=== PATIENT | male | born 1970 | race Two or more races ===

== ENCOUNTER 2021-02-21 06:22 | Emergency (ER) | payer OTHER, SELFPAY ==
--- NOTE | ~2021-02-21 | CT_ITS ---
EXAMINATION: CT ABDOMEN AND PELVIS WITH CONTRAST CLINICAL INFORMATION: Upper abdominal pain after eating. COMPARISON: None TECHNIQUE: Multidetector volumetric images were obtained from the superior aspect of the liver through the pubic symphysis following administration 100 mL of Omnipaque 350 intravenous contrast. Sagittal and coronal reformatted images were obtained on the technologist's workstation. Oral contrast: No This CT examination was performed using dose optimization techniques as appropriate, variously including the following: *Automated exposure control *Adjustment of mA and/or kV according to patient size (this includes techniques or standardized protocols for targeted exams where dose is matched to indication/reason for exam; i.e. extremities or head) *Use of iterative reconstruction technique DLP: 2028 mGy-cm FINDINGS: LUNG BASES: The lung bases are clear. The heart size is normal. LIVER, GALLBLADDER, AND BILIARY TREE: The liver is normal in size, shape, and attenuation. No focal hepatic lesion or biliary ductal dilatation is present. The gallbladder is unremarkable with no evidence of radiopaque gallstones, gallbladder wall thickening, or obvious pericholecystic inflammatory changes. PANCREAS: Unremarkable. SPLEEN: There is a 1.8 cm lesion along the inferior tip of the spleen, question cyst. The rest of the spleen is homogeneous in density and is normal size. ADRENAL GLANDS: Unremarkable. KIDNEYS AND URETERS: The kidneys are normal in size, shape, and attenuation. No hydronephrosis, hydroureter, or calculi are seen. No perinephric stranding. BLADDER: Unremarkable. GASTROINTESTINAL TRACT: There is scattered stool and gas seen throughout the colon without significant distention. The small bowel loops are normal caliber. The appendix is normal caliber. No inflammatory process is seen in the abdomen. ABDOMINAL WALL: There is a small umbilical hernia containing fat. LYMPH NODES: Normal. VASCULAR: Unremarkable. PELVIC VISCERA: No free air or free fluid is seen. OSSEOUS STRUCTURES: There is no lytic or sclerotic process. CT/CT abdomen pelvis w con IMPRESSION: No acute intra-abdominal process is seen. A small splenic lesion, likely a cyst or hemangioma. Correlation with ultrasound can be performed.
--- NOTE | ~2021-02-21 | US_ITS ---
EXAMINATION: US ABDOMEN LIMITED CLINICAL INFORMATION: Right upper quadrant pain rule out stones. COMPARISON: CT abdomen 02/21/2021 TECHNIQUE: Real-time imaging of the right upper quadrant abdominal viscera. FINDINGS: PANCREAS: The pancreas is obscured by overlying gas LIVER: The liver is normal in size. The liver contour is normal. Parenchymal echogenicity is increased. No focal hepatic lesion. There is no intrahepatic biliary duct dilatation seen. GALLBLADDER: Normal. The gallbladder is physiologically distended without evidence of stones, sludge, polyps, wall thickening or pericholecystic fluid. COMMON BILE DUCT: Common bile duct is not seen. RIGHT KIDNEY: Normal. No hydronephrosis. No renal calculi or focal parenchymal lesions. The kidney measures 10.9 cm in maximum dimension. FREE FLUID: None. US/US abdomen limited IMPRESSION: Mild hepatic steatosis. The pancreas and CBD was not visualized Gallbladder and right kidney is unremarkable.
[2021-02-21 06:44] VITALS: BP 177/96; PULSE 133; RESP 16; TEMP 37.3; O2SAT 95; BMI 61.3
--- NOTE | 2021-02-21 06:47 | ECG_ITS ---
Test Reason : ABDOMINAL PAIN' Blood Pressure : / mmHG Vent. Rate : 114 BPM Atrial Rate : 114 BPM P-R Int : 128 ms QRS Dur : 186 ms QT Int : 370 ms P-R-T Axes : 003 081 -75 degrees QTc Int : 509 ms Poor data quality Sinus tachycardia When compared with ECG of 24-OCT-2018 00:28, Artifact present Referred By: Scott Oconnell Electronically Signed By:Denny Pearce
--- NOTE | 2021-02-21 06:52 | ED_ITS ---
HPI - General Adult General Chief complaint: Abdominal Pain Stated complaint: CONSTIPATION/NAUSEA Time Seen by Provider: 02/21/21 06:37 Source: patient Mode of arrival: ambulatory Limitations: no limitations History of Present Illness HPI narrative: 50-year-old male who presents emergency department for evaluation of abdominal pain that started yesterday. The patient states that he got home from work and ate dinner at around 7:00 p.m.. He states that he ate shrimp, keilbasa the, potatoes and corn. Approximately 1 hour after eating he developed upper abdominal pain. He took an antacid with no relief his di scomfort. He states the pain has been constant. He describes the pain as a bloating sensation. The pain is 8/10 at its worst. He had associated nausea with no vomiting. States he has been constipated over the last 3-4 days and also had small bowel movements. He denied fever, chills, chest pain, shortness of breath, frequency, urgency or dysuria. The patient states he has not had a COVID 19 infection. He completed his 2nd Spreadshirt COVID-19 vaccine approximately 6 days prior. Related Data Previous Rx's Medication Instructions Recorded amlodipine 10 mg tablet 10 mg PO DAILY 90 Days #90 tab 09/18/20 blood sugar diagnostic #100 ea 09/18/20 comp.stocking,thigh,long,x-lrg #2 ea 09/18/20 furosemide 20 mg tablet 20 mg PO DAILY PRN 14 Days #14 tab 09/18/20 glipizide 2.5 mg tablet, extended 2.5 mg PO DAILY 30 Days #30 tab 09/18/20 release 24 hr lancets 28 gauge #100 ea 09/18/20 olmesartan 20 mg tablet 20 mg PO DAILY 90 Days #90 tab 09/18/20 simvastatin 20 mg tablet 20 mg PO BEDTIME 90 Days #90 tab 09/18/20 sitagliptin 25 mg tablet 25 mg PO DAILY 30 Days #30 tab 09/18/20 aspirin 81 mg tablet,delayed 81 mg PO DAILY 90 Days #90 tab 12/31/20 release metformin 1,000 mg tablet 1,000 mg PO BID 90 Days #180 tab 12/31/20 metoprolol tartrate 100 mg tablet 100 mg PO BID 90 Days #180 tab 12/31/20 Allergies Allergy/AdvReac Type Severity Reaction Status Date / Time empagliflozin [Jardiance] AdvReac Unknown penile Verified 12/18/20 09:27 swelling Review of Systems Review of Systems: Yes all other systems are reviewed and are negative [facility] Past Medical History [facility] Narrative: Patient has a history of diabetes mellitus, hyperlipidemia, obesity, obstructive sleep apnea and peripheral edema. He states that he does not smoke cigarettes, he very rarely drinks alcohol, he denies drug use. He is he was his , he is employed. Surgical History History of tonsillectomy Family History Family History Father Medical history unknown Mother Hypertension Diabetes ZANDER (obstructive sleep apnea) Stroke Brother Diabetes Social History Social History Smoking Status: Never smoker Advance Directives: No Advance Directives Information Provided: No Physical Exam Vital Signs: Vital Signs: Last Vital Signs Temp 99.0 F 02/21/21 11:06 Pulse 98 02/21/21 13:45 Resp 16 02/21/21 13:45 BP 196/89 H 02/21/21 13:45 Pulse Ox 98 02/21/21 13:45 Body Mass Index 61.3 Const: General: cooperative Nutritional Appearance: obese morbidly obese Orientation/consciousness: oriented to person and oriented to place Limi tations: no limitations HENMT: Head: Yes normal to inspection, Yes normocephalic and Yes atraumatic Ears: external ears normal General nose exam: Normal external nose present Face and sinus: Yes normal facial exam Mouth: Normal oral and palatal mucosa present Throat: Yes posterior oropharynx normal Eyes: Periorbital: periorbital findings normal Eyelids: Yes eyelids normal Conjunctivae: conjunctivae normal Sclerae: sclerae normal Corneas: corneas normal Pupils: Equal, round and reactive pupils present Direct Ophthalmoscopy: normal light reflex Neck: Neck: Yes full ROM, Yes no lymphadenopathy, Yes no meningeal signs, Yes trachea midline and Yes supple Chest: Chest palpation & inspection: normal inspection of the chest and normal palpation of entire chest wall Resp: Effort & Inspection: normal respiratory effort and able to speak in complete sentences Auscultation: clear to auscultation bilaterally Cardio: Rate: regular rate Rhythm: regular rhythm Heart sounds: S1 normal heart sound present, S2 normal heart sound present and no murmurs GI: Inspection: Yes normal to inspection Palpation (GI): Soft to palpation, Tenderness to palpation present (GI) in the epigastrum ([id number]), in the LLQ ([id number]) and in the RUQ (Moderate), no guarding, not rigid and No hepatosplenomegaly present : General: Yes no CVA tenderness Back/Spine/Pelvis: Back: no CVA tenderness Cervical Spine: normal cervical lordosis Thoracic/Lumbar Spine: thoracic and lumbar spine normal to inspection Skin: Lesions: no lesions Rashes: no rashes Wounds: no wounds Neuro: General: oriented to person, oriented to place and no meningeal signs Cranial nerves: Yes CN's II-XII intact bilaterally and Yes Equal, round and reactive pupils present Cognition (Neuro): normal cognition Motor exam (neuro): 5/5 motor strength present throughout Extrem: General: Yes normal to inspection and Yes full ROM Psych: Appearance: well kempt Mental Status: mental status grossly normal Speech and movement: Normal speech and movement present Affect: normal affect Attitude: cooperative Thought process: Normal thought process present Thought content: Normal thought content present Course Course Course Narrative: 50-year-old male who presents emergency department for evaluation of upper abdominal pain which started yesterday at 8:00 p.m., 1 hour after eating a fatty meal. Patient's pain is been constant and he feels bloated, he has had associated nausea with no vomiting. Physical examination did reveal a morbidly obese male who appeared to be in mild distress secondary to his pain. He did have upper abdominal tenderness with increased tenderness in the right upper quadrant. Differential includes but is not limited to biliary disease, gastritis, pancreatitis. I did order a CBC, CMP, lipase, EKG, CT scan of the abdomen pelvis with IV contrast. He was ordered to get normal saline IV x1 L, his pain and nausea were treated with Zofran 4 mg IV and Toradol 30 mg IV. 0825: Patient's laboratory evaluation revealed an elevated lactic acid of 4.2, elevated glucose of 420, low bicarb of 20, elevated ALT of 47 elevated alk-phos of 154. Patient's WBC count was normal at 8300 but he did have a left shift with 90 neutrophils and no bands. The patient meets sepsis criteria secondary to elevated lactic acid of 4.2. The patient was ordered to get a 30 cc/kilogram bolus of normal saline based on the patient's ideal body weight. This bolus would be 2 L of normal saline. I did order blood cultures on the patient and I ordered the patient to get Zosyn 4.5 mg IV to cover him for possible biliary source for sepsis. 1349: The CT scan of the patient's abdomen pelvis with IV contrast did not reveal any clear etiology for the patient's abdominal pain. A right upper quadrant ultrasound was obtained and there was no gallstones noted or gallbladder wall thickening. The patient did require morphine IV for his pain is well and his pain is significantly improved. Repeat abdominal exam revealed only minimal mid epigastric and right upper quadrant tenderness. At this time I suspect the patient's pain is secondary to gastritis but I did discuss the possibility of gallbladder dysfunction as a cause of his pain. I will treat the patient with an H2 shaylee for gastritis and fiber supplement and laxative to help with his constipation. Medical Decision Making Lab Data Result diagrams: 02/21/21 07:33 02/21/21 07:33 Labs: Lab Results 02/21/21 02/21/21 02/21/21 Range/Units 07:33 07:33 07:33 WBC 8.3 (4.8-10.8) X10*3/uL RBC 4.88 (4.60-5.80) X10*6/uL Hgb 13.7 L (14.0-18.0) g/dl Hct 42.7 (42-52) % MCV 87.5 (80-98) fL MCH 28.1 (27.0-33.0) pg MCHC 32.1 (31.0-36.0) g/dl RDW 13.7 (11.0-16.0) % Plt Count 254 (160-400) X10*3/uL MPV 9.6 (9.4-12.4) fL Immature Gran % (Auto) 1.3 H (0.0-0.4) % Neut % (Auto) 90.5 H (45-73) % Lymph % (Auto) 3.9 L (20-40) % Cherry % (Auto) 3.7 (2-11) % Eos % (Auto) 0.4 (0-4) % Baso % (Auto) 0.2 (0-2) % Lymph # (Auto) 0.3 L (1.2-4.9) X10*3/uL Cherry # (Auto) 0.3 (0.1-1.2) X10*3/uL Eos # (Auto) 0.0 (0.0-0.4) X10*3/uL Baso # (Auto) 0.0 (0.0-0.2) X10*3/uL Abs Immat Gran (auto) 0.11 H (0.00-0.03) X10*3/uL Absolute Neuts (auto) 7.5 (2.0-8.3) X10*3/uL Absolute Nucleated RBC 0.000 (0.0-0.012) X10*3/uL Nucleated RBC % (auto) 0.0 (0.0-0.2) /100WBC Smear Tech's Comments VERIFIED PT (10.8-13.0) SEC INR (0.9-1.1) APTT (24.1-38.0) SEC Sodium 140 (135-145) mmol/L Potassium 4.4 (3.3-5.1) mmol/L Chloride 104 (96-108) mmol/L Carbon Dioxide 20 L (22-29) mmol/L Anion Gap 20 (12-20) BUN 15 (9-16) mg/dL Creatinine 1.01 (0.5-1.4) mg/dL Estim Creat Clear Calc 132.7 Estimated GFR > 60 Random Glucose 420 H* (60-115) mg/dL Lactic Acid 4.2 H* (0.5-2.0) mmol/L Lactic Acid Fup @ 2Hr (0.5-2.0) mmol/L Calcium 8.7 (8.4-10.2) mg/dL Total Bilirubin 0.6 (0.0-1.0) mg/dL AST 30 (5-37) U/L ALT 47 H (0-40) U/L Alkaline Phosphatase 154 H (39-117) U/L Troponin I High Sens (<3.5-35.0) ng/L Total Protein 6.7 (6.5-8.0) g/dL Albumin 4.2 (3.5-5.0) g/dL Lipase 24 (8-78) U/L Urine Color Urine Appearance Urine pH (5.0-8.0) Ur Specific [place] (1.005-1.025) Urine Protein (NEG-TRACE) MG/DL Urine Glucose (UA) (NEG) MG/DL Urine Ketones (NEG) MG/DL Urine Blood (NEG) Urine Nitrite (NEG) Ur Leukocyte Esterase (NEG) Urine RBC (0) /HPF Urine WBC (0-4) /HPF Ur Squamous Epith Cells /LPF Amorphous Sediment /LPF Urine Bacteria /LPF Urine Mucus /LPF COVID-19 ([facility]) (Negative) COVID-19 Clin Com 02/21/21 02/21/21 02/21/21 Range/Units 07:34 07:34 08:07 WBC (4.8-10.8) X10*3/uL RBC (4.60-5.80) X10*6/uL Hgb (14.0-18.0) g/dl Hct (42-52) % MCV (80-98) fL MCH (27.0-33.0) pg MCHC (31.0-36.0) g/dl RDW (11.0-16.0) % Plt Count (160-400) X10*3/uL MPV (9.4-12.4) fL Immature Gran % (Auto) (0.0-0.4) % Neut % (Auto) (45-73) % Lymph % (Auto) (20-40) % Cherry % (Auto) (2-11) % Eos % (Auto) (0-4) % Baso % (Auto) (0-2) % Lymph # (Auto) (1.2-4.9) X10*3/uL Cherry # (Auto) (0.1-1.2) X10*3/uL Eos # (Auto) (0.0-0.4) X10*3/uL Baso # (Auto) (0.0-0.2) X10*3/uL Abs Immat Gran (auto) (0.00-0.03) X10*3/uL Absolute Neuts (auto) (2.0-8.3) X10*3/uL Absolute Nucleated RBC (0.0-0.012) X10*3/uL Nucleated RBC % (auto) (0.0-0.2) /100WBC Smear Tech's Comments PT 11.5 (10.8-13.0) SEC INR 1.0 (0.9-1.1) APTT 35.3 (24.1-38.0) SEC Sodium (135-145) mmol/L Potassium (3.3-5.1) mmol/L Chloride (96-108) mmol/L Carbon Dioxide (22-29) mmol/L Anion Gap (12-20) BUN (9-16) mg/dL Creatinine (0.5-1.4) mg/dL Estim Creat Clear Calc Estimated GFR Random Glucose (60-115) mg/dL Lactic Acid (0.5-2.0) mmol/L Lactic Acid Fup @ 2Hr (0.5-2.0) mmol/L Calcium (8.4-10.2) mg/dL Total Bilirubin (0.0-1.0) mg/dL AST (5-37) U/L ALT (0-40) U/L Alkaline Phosphatase (39-117) U/L Troponin I High Sens < 3.5 (<3.5-35.0) ng/L Total Protein (6.5-8.0) g/dL Albumin (3.5-5.0) g/dL Lipase (8-78) U/L Urine Color DARK YELLOW Urine Appearance CLEAR Urine pH 5.5 (5.0-8.0) Ur Specific [place] >= 1.030 H (1.005-1.025) Urine Protein 1+ H (NEG-TRACE) MG/DL Urine Glucose (UA) 500 H (NEG) MG/DL Urine Ketones 15 (NEG) MG/DL Urine Blood NEG (NEG) Urine Nitrite NEG (NEG) Ur Leukocyte Esterase NEG (NEG) Urine RBC 0 (0) /HPF Urine WBC 0-2 (0-4) /HPF Ur Squamous Epith Cells 2+ /LPF Amorphous Sediment 1+ /LPF Urine Bacteria NONE /LPF Urine Mucus TRACE /LPF COVID-19 ([facility]) (Negative) COVID-19 Clin Com 02/21/21 02/21/21 Range/Units 08:58 11:14 WBC (4.8-10.8) X10*3/uL RBC (4.60-5.80) X10*6/uL Hgb (14.0-18.0) g/dl Hct (42-52) % MCV (80-98) fL MCH (27.0-33.0) pg MCHC (31.0-36.0) g/dl RDW (11.0-16.0) % Plt Count (160-400) X10*3/uL MPV (9.4-12.4) fL Immature Gran % (Auto) (0.0-0.4) % Neut % (Auto) (45-73) % Lymph % (Auto) (20-40) % Cherry % (Auto) (2-11) % Eos % (Auto) (0-4) % Baso % (Auto) (0-2) % Lymph # (Auto) (1.2-4.9) X10*3/uL Cherry # (Auto) (0.1-1.2) X10*3/uL Eos # (Auto) (0.0-0.4) X10*3/uL Baso # (Auto) (0.0-0.2) X10*3/uL Abs Immat Gran (auto) (0.00-0.03) X10*3/uL Absolute Neuts (auto) (2.0-8.3) X10*3/uL Absolute Nucleated RBC (0.0-0.012) X10*3/uL Nucleated RBC % (auto) (0.0-0.2) /100WBC Smear Tech's Comments PT (10.8-13.0) SEC INR (0.9-1.1) APTT (24.1-38.0) SEC Sodium (135-145) mmol/L Potassium (3.3-5.1) mmol/L Chloride (96-108) mmol/L Carbon Dioxide (22-29) mmol/L Anion Gap (12-20) BUN (9-16) mg/dL Creatinine (0.5-1.4) mg/dL Estim Creat Clear Calc Estimated GFR Random Glucose (60-115) mg/dL Lactic Acid (0.5-2.0) mmol/L Lactic Acid Fup @ 2Hr 3.4 H* (0.5-2.0) mmol/L Calcium (8.4-10.2) mg/dL Total Bilirubin (0.0-1.0) mg/dL AST (5-37) U/L ALT (0-40) U/L Alkaline Phosphatase (39-117) U/L Troponin I High Sens (<3.5-35.0) ng/L Total Protein (6.5-8.0) g/dL Albumin (3.5-5.0) g/dL Lipase (8-78) U/L Urine Color Urine Appearance Urine pH (5.0-8.0) Ur Specific [place] (1.005-1.025) Urine Protein (NEG-TRACE) MG/DL Urine Glucose (UA) (NEG) MG/DL Urine Ketones (NEG) MG/DL Urine Blood (NEG) Urine Nitrite (NEG) Ur Leukocyte Esterase (NEG) Urine RBC (0) /HPF Urine WBC (0-4) /HPF Ur Squamous Epith Cells /LPF Amorphous Sediment /LPF Urine Bacteria /LPF Urine Mucus /LPF COVID-19 ([facility]) Negative (Negative) COVID-19 Clin Com See Note Discharge Plan Discharge Clinical Impression: Abdominal pain Patient Disposition: Home, Self-Care Instructions: Abdominal Pain (ED) Additional Instructions: Your blood work did reveal a slight elevation in your white blood cell count elevation in your lactic acid. The CT scan of your abdomen pelvis with IV contrast did not reveal any problems with her gallbladder or any other findings that explains your pain. The ultrasound of your right side of your abdomen did not reveal any gallbladder stones. At this time, I do not have a clear cause for your pain. I suspect that you may have gastritis (inflammation of your stomach). Take cimetidine 800 mg tablets, 1 pill twice a day for 1 month. This will reduce the acid in her stomach and help her stomach heal. I want to treat your constipation as well with a fiber supplement and a laxative. Take Metamucil 1 tsp mixed in 8 oz of water daily for 1 month. Take Senokot 1 pill twice a day for 4 days. This is a laxative and should help you move your bowels. Follow-up with your doctor in 2 days. Please return to the emergency department if your symptoms get worse or if you develop any symptoms that are concerning to you. Prescriptions: No Action metoprolol tartrate 100 mg tablet 100 mg PO BID 90 Days Qty: 180 RF: 1 aspirin 81 mg tablet,delayed release (DR/EC) 81 mg PO DAILY 90 Days Qty: 90 RF: 1 metformin 1,000 mg tablet 1,000 mg PO BID 90 Days Qty: 180 RF: 1 amlodipine 10 mg tablet 10 mg PO DAILY 90 Days Qty: 90 RF: 1 olmesartan 20 mg tablet 20 mg PO DAILY 90 Days Qty: 90 RF: 1 (DME) FreeStyle Test Strip See Rx Instructions .ROUTE .MEDSUPPLY Qty: 100 RF: 0 glipizide 2.5 mg tablet extended release 24hr 2.5 mg PO DAILY 30 Days Qty: 30 RF: 3 Januvia 25 mg tablet 25 mg PO DAILY 30 Days Qty: 30 RF: 3 (DME) lancets [FreeStyle Lancets] 28 gauge misc See Rx Instructions .ROUTE .MEDSUPPLY Qty: 100 RF: 0 furosemide [Lasix] 20 mg tablet 20 mg PO DAILY PRN (Reason: edema) 14 Days Qty: 14 RF: 1 (DME) comp.stocking,thigh,long,x-lrg Misc See Rx Instructions .ROUTE .MEDSUPPLY Qty: 2 RF: 0 simvastatin 20 mg tablet 20 mg PO BEDTIME 90 Days Qty: 90 RF: 1
[2021-02-21 07:41] LABS: Basophils Percent Auto 0.2 % (0-2); Eosinophils Percent Auto 0.4 % (0-4); Hematocrit 42.7 % (42-52); Hemoglobin 13.7 g/dl (14.0-18.0); Imm Gran Abs Auto 0.11 X10*3/uL (0.00-0.03); Imm Gran Pct Auto 1.3 % (0.0-0.4); Lymphocytes Absolute Auto 0.3 X10*3/uL (1.2-4.9); Lymphocytes Percent Auto 3.9 % (20-40); MANUAL DIFF FLAG SCAN; Mean Corpuscular HGB Conc 32.1 g/dl (31.0-36.0); Mean Corpuscular Hemoglobin 28.1 pg (27.0-33.0); Mean Corpuscular Volume 87.5 fL (80-98); Mean Platelet Volume 9.6 fL (9.4-12.4); Monocytes Absolute Auto 0.3 X10*3/uL (0.1-1.2); Monocytes Percent Auto 3.7 % (2-11); Neutrophils Absolute Auto 7.5 X10*3/uL (2.0-8.3); Neutrophils Percent Auto 90.5 % (45-73); Platelet Count 254 X10*3/uL (160-400); Red Blood Count 4.88 X10*6/uL (4.60-5.80); Red Cell Distribution Width 13.7 % (11.0-16.0); SCAN SMEAR FLAG 1; White Blood Count 8.3 X10*3/uL (4.8-10.8)
[2021-02-21 07:44] LABS: Glucose Urine UA 500 MG/DL (NEG); Leukocyte Esterase Urine NEG (NEG); Nitrite Urine NEG (NEG); PH 5.5 (5.0-8.0); Specific Gravity - Urine >= 1.030 (1.005-1.025); Urine Blood NEG (NEG); Urine Ketones 15 MG/DL (NEG); Urine Protein 1+ MG/DL (NEG-TRACE)
[2021-02-21 07:46] LABS: Appearance Urine CLEAR; Color Urine DARK YELLOW
[2021-02-21 07:52] LABS: Amorphous Sediment Urine 1+ /LPF; Mucus Urine TRACE /LPF; RBC Urine 0 /HPF (0); Squamous Epithelial Cell Urine 2+ /LPF; WBC Urine 0-2 /HPF (0-4)
[2021-02-21 07:58] LABS: SLIDE REVIEW VERIFIED
[2021-02-21] MEDS: Ketorolac Tromethamine 30 MG/ML VIAL IVPUSH (07:59)
[2021-02-21] MEDS: 0.9 % Sodium Chloride 1,000 ML 999 ML IV (08:00)
[2021-02-21 08:06] LABS: Lactic Acid 4.2 mmol/L (0.5-2.0)
[2021-02-21 08:15] LABS: Troponin-I High Sensitivity < 3.5 ng/L (<3.5-35.0)
[2021-02-21 08:20] LABS: Alanine Aminotransferase 47 U/L (0-40); Albumin Level 4.2 g/dL (3.5-5.0); Alkaline Phosphatase 154 U/L (39-117); Anion Gap 20 (12-20); Aspartate Amino Transferase 30 U/L (5-37); Bilirubin Total 0.6 mg/dL (0.0-1.0); Blood Urea Nitrogen 15 mg/dL (9-16); Calcium 8.7 mg/dL (8.4-10.2); Carbon Dioxide 20 mmol/L (22-29); Chloride 104 mmol/L (96-108); Creatinine Clr Calc Pharmacy 132.7; Estimated Glomerular Filt Rate > 60; Glucose Random 420 mg/dL (60-115); Lipase 24 U/L (8-78); Potassium 4.4 mmol/L (3.3-5.1); Sodium 140 mmol/L (135-145); Total Protein 6.7 g/dL (6.5-8.0)
[2021-02-21 08:21] LABS: Prothrombin Time 11.5 SEC (10.8-13.0)
[2021-02-21 08:23] LABS: Partial Thromboplastin Time 35.3 SEC (24.1-38.0)
[2021-02-21] MEDS: iohexoL 350 MG/ML 100 ML INFUS..BTL IV (09:15)
[2021-02-21 09:31] LABS: COVID-19 Test Negative (Negative); IDNOW Serial# 9DD0AD1C
[2021-02-21 09:38] LABS: Reflex Lactate? Lactic Acid Added
[2021-02-21] MEDS: Piperacillin Sodium/Tazobactam 4.5 GM in 0.9 % Sodium Chloride 100 ML IV (09:50)
[2021-02-21 11:06] VITALS: BP 190/97; PULSE 95; RESP 16; TEMP 37.2; O2SAT 98
[2021-02-21 11:42] LABS: ~Lactic Acid-LAB USE ONLY 3.4 mmol/L (0.5-2.0)
[2021-02-21] MEDS: ondansetron HCL 4 MG/2 ML VIAL IVPUSH (12:01)
[2021-02-21] MEDS: Morphine Sulfate 4 MG/ML CARTRIDGE IVPUSH (12:01)
[2021-02-21 13:18] LABS: Reflex Lactate? 2 Y
[2021-02-21 13:45] VITALS: BP 196/89; PULSE 98; RESP 16; O2SAT 98
--- NOTE | 2021-02-21 13:48 | PC.NURSE ---
pt hypertensive, did not take his bp rxs this am. asymptomatic.
== END 2021-02-21 14:37 | disposition home or self-care (01) ==
PROVIDERS: Emergency Provider Emergency Medicine Emergency Medical Services; PCP Physician Assistant
DX: R10.11 Right upper quadrant pain (principal); K59.00 Constipation, unspecified; Z79.899 Other long term (current) drug therapy; Z20.822 Contact with and (suspected) exposure to COVID-19
CPT/HCPCS: 36415; 74177; 76705; 80053; 81001; 83605; 83690; 84484; 85025; 85610; 85730; 87040; 87635; 93005; 96361; 96365; 96375; 99284; J1885; J2270; J2405; J2543; Q9967

== ENCOUNTER 2021-09-28 16:48 | Emergency (ER) | payer OTHER, SELFPAY ==
[2021-09-28 17:04] VITALS: BP 203/92; PULSE 82; RESP 18; TEMP 37; O2SAT 98; BMI 58.1
[2021-09-28 20:05] VITALS: BP 191/81; PULSE 94
[2021-09-28 20:07] VITALS: O2SAT 98
--- NOTE | 2021-09-28 20:07 | PC.NURSE ---
pt a&o, denies any increase sob, but has a cough after vaccines and has chest pain from coughing. pt also reports high blood pressure he believe it is due to over the counter medicine.
[2021-09-28 21:47] VITALS: BP 191/87; PULSE 94
[2021-09-28] MEDS: Metoprolol Tartrate 100 MG TABLET PO (21:47)
[2021-09-28 22:50] VITALS: BP 188/92; PULSE 67; RESP 18; TEMP 37.6; O2SAT 96
--- NOTE | 2021-09-29 00:05 | ED.GENADULT ---
HPI - General Adult General Chief complaint: Upper Respiratory Symptoms Stated complaint: high bp Time Seen by Provider: 09/28/21 20:54 Source: patient History of Present Illness HPI narrative: Patient was sent in from urgent care due to hypertension. Patient has had a recent viral upper respiratory infection, COVID-19 negative. He states he has been coughing a lot. He went to the urgent care today. They found his blood pressure was elevated. He had not taken his blood pressure medicine yet. He typically takes metoprolol daily. He has been taking [id number] decongestants and cough medication including a Sudafed in the morning. He denies chest pain. No shortness of breath. He does have a headache when he coughs but otherwise no weakness numbness or paresthesias. He states he typically runs a high blood pressure but does not know the number. Related Data Previous Rx's Medication Instructions Recorded amlodipine 10 mg tablet 10 mg PO DAILY 90 Days #90 tab 09/18/20 blood sugar diagnostic (FreeStyle #100 ea 09/18/20 Test) comp.stocking,thigh,long,x-lrg #2 ea 09/18/20 furosemide 20 mg tablet (Lasix) 20 mg PO DAILY PRN 14 Days #14 tab 09/18/20 glipizide 2.5 mg tablet, extended 2.5 mg PO DAILY 30 Days #30 tab 09/18/20 release 24 hr lancets 28 gauge (FreeStyle #100 ea 09/18/20 Lancets) olmesartan 20 mg tablet 20 mg PO DAILY 90 Days #90 tab 09/18/20 simvastatin 20 mg tablet 20 mg PO BEDTIME 90 Days #90 tab 09/18/20 sitagliptin 25 mg tablet (Januvia) 25 mg PO DAILY 30 Days #30 tab 09/18/20 aspirin 81 mg tablet,delayed 81 mg PO DAILY 90 Days #90 tab 12/31/20 release metformin 1,000 mg tablet 1,000 mg PO BID 90 Days #180 tab 12/31/20 metoprolol tartrate 100 mg tablet 100 mg PO BID 90 Days #180 tab 12/31/20 cimetidine 800 mg tablet 800 mg PO BID 30 Days #60 tab 02/21/21 sennosides 17.2 mg tablet (Senokot 34.4 mg PO BID PRN #30 tab 02/21/21 Extra Strength) amlodipine 10 mg tablet 10 mg PO DAILY #30 tab 09/29/21 Allergies Allergy/AdvReac Type Severity Reaction Status Date / Time empagliflozin [Jardiance] AdvReac Unknown penile Verified 09/28/21 17:04 swelling Review of Systems Constitutional: Constitutional: Denies fever(s) Cardiovascular: Comments: No chest pain Respiratory: Comments: Cough. No phlegm. No dyspnea Gastrointestinal: Comments: No nausea vomiting diarrhea constipation Musculoskeletal: Comments: No extremity pain Neurologic: Comments: Headache without weakness numbness or paresthesias [facility] Past Medical History Surgical History History of tonsillectomy Family History Family History Father Medical history unknown Mother Hypertension Diabetes ZANDER (obstructive sleep apnea) Stroke Brother Diabetes Social History Social History Patient Tobacco Use Status: Never used Tobacco Use of substances other than those prescribed or required for medical reasons: No Advance Directives: No Advance Directives Information Provided: Yes Physical Exam Vital Signs: Vital Signs: Last Vital Signs Temp 99.6 F 09/28/21 22:50 Pulse 67 09/28/21 22:50 Resp 18 09/28/21 22:50 BP 188/92 H 09/28/21 22:50 Pulse Ox 96 09/28/21 22:50 Body Mass Index 58.1 Const: Other: Awake alert no acute distress Resp: Other: Clear and equal bilaterally no wheezes rales or rhonchi Cardio: Other: Regular rate and rhythm without murmurs rubs or gallops GI: Other: Soft nontender nondistended Skin: Other: Warm pink and dry Neuro: Other: Nonfocal. Ambulatory Course Course Course Narrative: Uncontrolled hypertension No evidence of end-organ damage of the clinical exam. Viral URI. Hypertension likely exacerbated by ofsm-loi-fohcrmd medications including Sudafed. He is likely under treated chronically. He states he used to be on amlodipine but it was too expensive. Will restart patient on amlodipine. He will last for the generic. Discharge Plan Discharge Clinical Impression: HTN (hypertension) Qualifiers: Hypertension type: primary hypertension Qualified Code(s): I10 - Essential (primary) hypertension URTI (infection of the upper respiratory tract) Qualifiers: URI type: unspecified viral URI Qualified Code(s): J06.9 - Acute upper respiratory infection, unspecified Patient Disposition: Home, Self-Care Instructions: Upper Respiratory Infection (ED), Chronic Hypertension (ED) Prescriptions: New amlodipine 10 mg tablet 10 mg PO DAILY Qty: 30 RF: 0 No Action metoprolol tartrate 100 mg tablet 100 mg PO BID 90 Days Qty: 180 RF: 1 aspirin 81 mg tablet,delayed release (DR/EC) 81 mg PO DAILY 90 Days Qty: 90 RF: 1 metformin 1,000 mg tablet 1,000 mg PO BID 90 Days Qty: 180 RF: 1 cimetidine 800 mg tablet 800 mg PO BID 30 Days Qty: 60 RF: 0 Senokot Extra Strength 17.2 mg tablet 34.4 mg PO BID PRN (Reason: constipation) Qty: 30 RF: 0 amlodipine 10 mg tablet 10 mg PO DAILY 90 Days Qty: 90 RF: 1 olmesartan 20 mg tablet 20 mg PO DAILY 90 Days Qty: 90 RF: 1 (DME) FreeStyle Test Strip See Rx Instructions .ROUTE .MEDSUPPLY Qty: 100 RF: 0 glipizide 2.5 mg tablet extended release 24hr 2.5 mg PO DAILY 30 Days Qty: 30 RF: 3 Januvia 25 mg tablet 25 mg PO DAILY 30 Days Qty: 30 RF: 3 (DME) lancets [FreeStyle Lancets] 28 gauge misc See Rx Instructions .ROUTE .MEDSUPPLY Qty: 100 RF: 0 furosemide [Lasix] 20 mg tablet 20 mg PO DAILY PRN (Reason: edema) 14 Days Qty: 14 RF: 1 (DME) comp.stocking,thigh,long,x-lrg Misc See Rx Instructions .ROUTE .MEDSUPPLY Qty: 2 RF: 0 simvastatin 20 mg tablet 20 mg PO BEDTIME 90 Days Qty: 90 RF: 1
[2021-09-29 00:08] VITALS: RESP 20
[2021-09-29 00:13] VITALS: BP 189/77; PULSE 71
[2021-09-29] MEDS: amLODIPine Besylate 5 MG TABLET PO (00:13)
== END 2021-09-29 00:20 | disposition home or self-care (01) ==
PROVIDERS: Emergency Provider Emergency Medicine; PCP Internal Medicine
DX: J06.9 Acute upper respiratory infection, unspecified (principal); I10 Essential (primary) hypertension; Z79.899 Other long term (current) drug therapy
CPT/HCPCS: 99283; 99284

== ENCOUNTER 2022-08-01 13:19 | Inpatient (IN) | payer OTHER, SELFPAY ==
--- NOTE | ~2022-08-01 | FL_ITS ---
EXAMINATION: XR FLUOROSCOPY WITH IMAGES CLINICAL INFORMATION: Kidney stone COMPARISON: Previous CT of the abdomen and pelvis 08/01/2022 TECHNIQUE: Fluoroscopy performed by Dr. Darwin Zuñiga. Fluoroscopy time: 86 seconds. Cumulative Dose: 70 mGy. DAP: Gy-cm2. Images: 1. FINDINGS: Single image demonstrates a wire projecting over the right renal collecting system and ureter. FL/FL guidance in OR IMPRESSION: Fluoroscopy guidance for urologic procedure.
--- NOTE | ~2022-08-01 | CT_ITS ---
EXAMINATION: CT ABDOMEN AND PELVIS WITHOUT CONTRAST CLINICAL INFORMATION: Flank pain COMPARISON: Abdominal ultrasound earlier today and CT abdomen pelvis February 21, 2021 TECHNIQUE: Multidetector volumetric imaging was performed from the superior aspect of the liver through the pubic symphysis. Sagittal and coronal reformatted images were obtained on the technologist's workstation. Today's examination is limited secondary to artifact from patient body habitus. This CT examination was performed using dose optimization techniques as appropriate, variously including the following: *Automated exposure control *Adjustment of mA and/or kV according to patient size (this includes techniques or standardized protocols for targeted exams where dose is matched to indication/reason for exam; i.e. extremities or head) *Use of iterative reconstruction technique DLP: 1687 mGy-cm FINDINGS: Visualized lung bases demonstrate mild dependent atelectasis. The liver is normal in size but demonstrates diffusely decreased attenuation. The gallbladder is normal in appearance. The pancreas is normal in appearance. Similar approximately 1 cm hypodense lesion off the inferior spleen, nonspecific. Small medial splenule noted. The adrenal glands are unremarkable. There is mild right-sided hydronephrosis secondary to a 2 mm calculus within the distal right ureter. There is asymmetric perinephric stranding of the right kidney. No other renal calculi identified within the right or left kidney. There is no hydronephrosis of the left kidney. The stomach is decompressed. Normal caliber loops of small and large bowel. Small fat-containing umbilical hernia is unchanged. Normal caliber abdominal aorta. A few shotty retroperitoneal lymph nodes are again demonstrated. The bladder is normal in appearance. The prostate gland is normal in size. There is no gross free pelvic fluid. No inguinal lymphadenopathy. Mild to moderate degenerative changes of the spine. CT/CT abdomen pelvis wo IV con IMPRESSION: -Mild right-sided hydronephrosis secondary to a 2 mm calculus within the distal right ureter. -Diffusely decreased liver attenuation suggesting hepatic steatosis. Correlation with liver enzymes recommended. Fleischner guidelines were followed.
--- NOTE | ~2022-08-01 | US_ITS ---
EXAMINATION: US ABDOMEN LIMITED CLINICAL INFORMATION: Right upper quadrant pain. COMPARISON: Right upper quadrant abdominal ultrasound 02/21/2021, CT abdomen pelvis 02/21/2021 TECHNIQUE: Real-time imaging of the right upper quadrant abdominal viscera. FINDINGS: PANCREAS: Visualized pancreatic body is grossly unremarkable. Majority of the pancreatic body, tail and head are obscured by bowel gas including assessment. LIVER: Diffusely increased hepatic echotexture consistent with steatosis. No gross liver lesion. No intrahepatic biliary ductal dilation. GALLBLADDER: Normal. The gallbladder is physiologically distended without evidence of stones, sludge, polyps, wall thickening or pericholecystic fluid. COMMON BILE DUCT: Not well delineated. What is felt to represent a short segment of the extra hepatic bile duct is measured at 0.5 cm in diameter. RIGHT KIDNEY: Normal. No renal calculi or focal parenchymal lesions. Mild fullness of the right renal pelvis. No caliectasis. The kidney measures 14.9 cm in maximum dimension. Limited imaging of the bladder for evaluation of ureteral jets was performed. Neither ureteral jet was seen but evaluation is significantly limited due to patient body habitus. FREE FLUID: None. US/US abdomen limited IMPRESSION: 1. Diffusely increased hepatic echotexture consistent with steatosis. 2. Normal gallbladder. No sonographic evidence of cholelithiasis or acute cholecystitis. 3. No biliary ductal dilation. 4. Slight fullness of the right renal pelvis versus minimal right hydronephrosis.
[2022-08-01 14:06] VITALS: BP 206/110; PULSE 92; RESP 16; TEMP 37.4; O2SAT 100; BMI 45.1
[2022-08-01 14:35] LABS: MANUAL DIFF FLAG NO
[2022-08-01 14:38] LABS: Basophils Percent Auto 0.4 % (0-2); Eosinophils Absolute Auto 0.1 X10*3/uL (0.0-0.4); Eosinophils Percent Auto 0.5 % (0-4); Hematocrit 42.2 % (42.0-52.0); Hemoglobin 13.8 g/dl (14.0-18.0); Imm Gran Abs Auto 0.08 X10*3/uL (0.00-0.03); Imm Gran Pct Auto 0.8 % (0.0-0.4); Lymphocytes Absolute Auto 1.3 X10*3/uL (1.2-4.9); Lymphocytes Percent Auto 12.5 % (20-40); Mean Corpuscular HGB Conc 32.7 g/dl (31.0-36.0); Mean Corpuscular Volume 85.8 fL (80.0-98.0); Mean Platelet Volume 9.8 fL (9.4-12.4); Monocytes Absolute Auto 0.5 X10*3/uL (0.1-1.2); Monocytes Percent Auto 5.4 % (2-11); Neutrophils Percent Auto 80.4 % (45-73); Platelet Count 262 X10*3/uL (160-400); Red Blood Count 4.92 X10*6/uL (4.60-5.80); Red Cell Distribution Width 13.5 % (11.0-16.0)
[2022-08-01 14:40] LABS: Appearance Urine Clear; Color Urine Yellow; Glucose Urine UA >=1000 mg/dL (Negative); Leukocyte Esterase Urine Negative (Negative); Nitrite Urine Negative (Negative); Specific Gravity - Urine 1.015 (1.005-1.025); UMIC TRIGGER UACC YES; Urine Blood Large (3+) (Negative); Urine Ketones 15 mg/dL (Negative); Urine Protein 30 (1+) mg/dL (Neg-Trace)
[2022-08-01] MEDS: Ondansetron ODT 4 MG TAB.RAPDIS TRANSLINGU (14:40)
--- NOTE | 2022-08-01 14:41 | PC.NURSE ---
PT KNOCKED ON TRIAGE DOOR C/O NAUSEA, ZOFRAN GIVEN, PT REQUESTING PAIN MED
[2022-08-01 14:42] LABS: Bacteria Urine None Seen (None Seen); Hyaline Casts Urine 0-2 /LPF (0-2); RBC Urine >20 /HPF (0-2); Squamous Epithelial Cell Urine 0-2 /HPF (0-2); WBC Urine 0-5 /HPF (0-5)
[2022-08-01] MEDS: Acetaminophen 325 MG TABLET 650 MG PO (14:48)
[2022-08-01 15:26] LABS: Alanine Aminotransferase 24 U/L (0-40); Albumin Level 4.6 g/dL (3.5-5.0); Alkaline Phosphatase 157 U/L (39-117); Anion Gap 22 (12-20); Aspartate Amino Transferase 23 U/L (5-37); Bilirubin Direct 0.4 mg/dL (0.0-0.5); Bilirubin Total 1.1 mg/dL (0.0-1.0); Blood Urea Nitrogen 16 mg/dL (9-16); Calcium 9.1 mg/dL (8.4-10.2); Carbon Dioxide 19 mmol/L (22-29); Chloride 102 mmol/L (96-108); Creatinine Clr Calc Pharmacy 77.2; Estimated Glomerular Filt Rate 53; Glucose Random 383 mg/dL (60-115); Lipase 22 U/L (8-78); Potassium 4.4 mmol/L (3.3-5.1); Sodium 139 mmol/L (135-145); Total Protein 7.4 g/dL (6.5-8.0)
[2022-08-01 16:35] VITALS: BP 174/93; PULSE 102; RESP 20; TEMP 37.3; O2SAT 100
--- NOTE | 2022-08-01 17:21 | PC.NURSE ---
Pt V/S are elevated. RN tried to complete an IV insertion but was not able.
[2022-08-01] MEDS: Ketorolac Tromethamine 30 MG/ML VIAL 15 MG IVPUSH ×2 (17:56→22:02)
[2022-08-01 18:00] VITALS: BP 176/80; PULSE 101; RESP 16; O2SAT 97
[2022-08-01] MEDS: 0.9 % Sodium Chloride 2,000 ML 999 ML IV (18:20)
[2022-08-01] MEDS: ondansetron HCL 4 MG/2 ML VIAL IVPUSH (18:23)
--- NOTE | 2022-08-01 18:28 | PC.NURSE ---
patient a&ox3, family at bedside, due to poor iv access provider attempted us guided which was obtained, ivf started per order, pt medicated per order, manager risk intact-sinus tact, will continue to monitor
[2022-08-01] MEDS: fentaNYL citrate/PF 100 MCG/2 ML VIAL 25 MCG IVPUSH (18:51)
--- NOTE | 2022-08-01 19:09 | ED.ABDPAIN ---
HPI - Abdominal Pain General Chief Complaint: Abdominal Pain Stated Complaint: Lower back pain R side Time Seen by Provider: 08/01/22 14:43 Source: patient and family Mode of arrival: ambulatory History of Present Illness HPI narrative: 52-year-old male with history of hypertension, diabetes and ZANDER who presents for right flank pain that began last night associated with some nausea but no vomiting and is having chills with difficulty urinating. Patient states that it worsened today with radiation into the groin area. Otherwise, denies any fevers, chest pain, shortness of breath. Related Data Previous Rx's Medication Instructions Recorded blood sugar diagnostic (FreeStyle #100 ea 09/18/20 Test strips) comp.stocking,thigh,long,x-lrg #2 ea 09/18/20 lancets 28 gauge (FreeStyle #100 ea 09/18/20 Lancets) amlodipine 10 mg tablet 10 mg PO DAILY 90 days #90 tabs 02/13/22 metformin 1,000 mg tablet 1,000 mg PO BID 90 days #180 tabs 04/21/22 metoprolol tartrate 100 mg tablet 100 mg PO BID 90 days #180 tabs 05/25/22 aspirin 81 mg tablet,delayed 81 mg PO DAILY 90 days #90 tabs 07/16/22 release simvastatin 20 mg tablet 20 mg PO BEDTIME 90 days #90 tabs 07/28/22 Allergies Allergy/AdvReac Type Severity Reaction Status Date / Time empagliflozin [Jardiance] AdvReac Unknown penile Verified 01/21/22 16:15 swelling Review of Systems Review of Systems Pertinent positives and negatives as stated in HPI 10 point review of systems is otherwise negative. [facility] Past Medical History Source: nursing notes reviewed Surgical History History of tonsillectomy Family History Family History Father Medical history unknown Mother Hypertension Diabetes ZANDER (obstructive sleep apnea) Stroke Brother Diabetes Social History Social History Housing: House Patient Tobacco Use Status: Never used Tobacco Use of substances other than those prescribed or required for medical reasons: No Advance Directives: No Advance Directives Information Provided: Yes Current occupational status: employed Physical Exam ED Vital Signs: Vital Signs - 24 hr 08/01/22 14:06 08/01/22 16:35 08/01/22 18:00 Temperature 99.4 F 99.2 F Pulse Rate 92 102 H 101 H Respiratory Rate 16 20 16 Blood Pressure 206/110 H 174/93 H 176/80 H Pulse Oximetry 100 100 97 Oxygen Delivery Method Room Air Room Air Room Air 08/01/22 21:23 08/01/22 22:33 08/02/22 01:32 Temperature 99.3 F 99.5 F Pulse Rate 109 H 111 H 97 Respiratory Rate 20 20 20 Blood Pressure 144/77 H 171/76 H 145/79 H Pulse Oximetry 98 98 96 Oxygen Delivery Method Room Air Room Air Room Air BMI result Body Mass Index 45.1 VITAL SIGNS: Reviewed. GENERAL: Well developed, well nourished, in moderate to severe distress. HEAD: Normocephalic/atraumatic EYES: PERRLA, EOMI intact without pain, no nystagmus/pallor/icterus noted EARS: Ext canals without abnormality OROPHARYNX: no oral lesions noted, posterior pharynx clear LUNGS: Normal breath sounds. No adventitious sounds or accessory muscle use. SpO2<100> CARDIOVASCULAR: Regular rate and rhythm without noted murmurs ABDOMEN: Soft, non-tender, non-distended with bowel sounds, no CVA tenderness SKIN: Inspection of the skin reveals no rashes NEUROLOGIC: Alert and oriented x 4. Strength and sensation to light touch were grossly intact x 4. Course Course Course Narrative: 52-year-old male with history and clinical presentation most consistent with renal colic but will rule out appendicitis, cholecystitis and less likely felt to be SBO or UTI. Review of all investigations c/w ANA, dehydration, ureterolithiasis, hydronephrosis. Patient received IVF, pain medications, insulin and is still having pain. Will repeat chemistries and discussed case with hospitalist who accepts admission and d/w Dr Zuñiga who will se patient in AM. MDM - Abdominal Pain Lab Data Result diagrams: 08/01/22 14:29 08/01/22 22:40 Labs: Lab Results 08/01/22 08/01/22 08/01/22 Range/Units 14:29 14:29 14:29 WBC 10.0 (4.8-10.8) X10*3/uL RBC 4.92 (4.60-5.80) X10*6/uL Hgb 13.8 L (14.0-18.0) g/dl Hct 42.2 (42.0-52.0) % MCV 85.8 (80.0-98.0) fL MCH 28.0 (27.0-33.0) pg MCHC 32.7 (31.0-36.0) g/dl RDW 13.5 (11.0-16.0) % Plt Count 262 (160-400) X10*3/uL MPV 9.8 (9.4-12.4) fL Immature Gran % (Auto) 0.8 H (0.0-0.4) % Neut % (Auto) 80.4 H (45-73) % Lymph % (Auto) 12.5 L (20-40) % [place] % (Auto) 5.4 (2-11) % Eos % (Auto) 0.5 (0-4) % Baso % (Auto) 0.4 (0-2) % Lymph # (Auto) 1.3 (1.2-4.9) X10*3/uL [place] # (Auto) 0.5 (0.1-1.2) X10*3/uL Eos # (Auto) 0.1 (0.0-0.4) X10*3/uL Baso # (Auto) 0.0 (0.0-0.2) X10*3/uL Abs Immat Gran (auto) 0.08 H (0.00-0.03) X10*3/uL Absolute Neuts (auto) 8.0 (2.0-8.3) x10*3/uL Absolute Nucleated RBC 0.000 (0.0-0.012) X10*3/uL Nucleated RBC % (auto) 0.0 (0.0-0.2) /100WBC Sodium 139 (135-145) mmol/L Potassium 4.4 (3.3-5.1) mmol/L Chloride 102 (96-108) mmol/L Carbon Dioxide 19 L (22-29) mmol/L Anion Gap 22 H (12-20) BUN 16 (9-16) mg/dL Creatinine 1.41 H (0.5-1.4) mg/dL Estim Creat Clear Calc 77.2 Estimated GFR 53 POC Glucose (60-115) mg/dL Random Glucose 383 H* (60-115) mg/dL Calcium 9.1 (8.4-10.2) mg/dL Total Bilirubin 1.1 H (0.0-1.0) mg/dL Direct Bilirubin 0.4 (0.0-0.5) mg/dL AST 23 (5-37) U/L ALT 24 (0-40) U/L Alkaline Phosphatase 157 H (39-117) U/L Total Protein 7.4 (6.5-8.0) g/dL Albumin 4.6 (3.5-5.0) g/dL Lipase 22 (8-78) U/L Urine Color Yellow Urine Appearance Clear Urine pH 6.0 (5.0-9.0) Ur Specific [place] 1.015 (1.005-1.025) Urine Protein 30 (1+) H (Neg-Trace) mg/dL Urine Glucose (UA) >=1000 H (Negative) mg/dL Urine Ketones 15 (Negative) mg/dL Urine Blood Large (3+) H (Negative) Urine Nitrite Negative (Negative) Ur Leukocyte Esterase Negative (Negative) Urine RBC >20 H (0-2) /HPF Urine WBC 0-5 (0-5) /HPF Ur Squamous Epith Cells 0-2 (0-2) /HPF Urine Bacteria None Seen (None Seen) Hyaline Casts 0-2 (0-2) /LPF 08/01/22 08/01/22 Range/Units 22:34 22:40 WBC (4.8-10.8) X10*3/uL RBC (4.60-5.80) X10*6/uL Hgb (14.0-18.0) g/dl Hct (42.0-52.0) % MCV (80.0-98.0) fL MCH (27.0-33.0) pg MCHC (31.0-36.0) g/dl RDW (11.0-16.0) % Plt Count (160-400) X10*3/uL MPV (9.4-12.4) fL Immature Gran % (Auto) (0.0-0.4) % Neut % (Auto) (45-73) % Lymph % (Auto) (20-40) % [place] % (Auto) (2-11) % Eos % (Auto) (0-4) % Baso % (Auto) (0-2) % Lymph # (Auto) (1.2-4.9) X10*3/uL [place] # (Auto) (0.1-1.2) X10*3/uL Eos # (Auto) (0.0-0.4) X10*3/uL Baso # (Auto) (0.0-0.2) X10*3/uL Abs Immat Gran (auto) (0.00-0.03) X10*3/uL Absolute Neuts (auto) (2.0-8.3) x10*3/uL Absolute Nucleated RBC (0.0-0.012) X10*3/uL Nucleated RBC % (auto) (0.0-0.2) /100WBC Sodium 139 (135-145) mmol/L Potassium 4.7 (3.3-5.1) mmol/L Chloride 103 (96-108) mmol/L Carbon Dioxide 20 L (22-29) mmol/L Anion Gap 21 H (12-20) BUN 15 (9-16) mg/dL Creatinine 1.45 H (0.5-1.4) mg/dL Estim Creat Clear Calc 75.0 Estimated GFR 51 POC Glucose 295 H (60-115) mg/dL Random Glucose 332 H (60-115) mg/dL Calcium 8.3 L D (8.4-10.2) mg/dL Total Bilirubin 0.7 (0.0-1.0) mg/dL Direct Bilirubin (0.0-0.5) mg/dL AST 22 (5-37) U/L ALT 22 (0-40) U/L Alkaline Phosphatase 141 H (39-117) U/L Total Protein 6.8 (6.5-8.0) g/dL Albumin 4.2 (3.5-5.0) g/dL Lipase (8-78) U/L Urine Color Urine Appearance Urine pH (5.0-9.0) Ur Specific [place] (1.005-1.025) Urine Protein (Neg-Trace) mg/dL Urine Glucose (UA) (Negative) mg/dL Urine Ketones (Negative) mg/dL Urine Blood (Negative) Urine Nitrite (Negative) Ur Leukocyte Esterase (Negative) Urine RBC (0-2) /HPF Urine WBC (0-5) /HPF Ur Squamous Epith Cells (0-2) /HPF Urine Bacteria (None Seen) Hyaline Casts (0-2) /LPF Discharge Plan Discharge Clinical Impression: ANA (acute kidney injury), HTN (hypertension), Obese, DMII (diabetes mellitus, type 2), ZANDER (obstructive sleep apnea), Ureterolithiasis, Hydronephrosis Patient Disposition: Admitted As Inpatient Prescriptions: No Action amlodipine 10 mg tablet 10 mg PO DAILY 90 Days Qty: 90 1RF metformin 1,000 mg tablet 1,000 mg PO BID 90 Days Qty: 180 1RF metoprolol tartrate 100 mg tablet 100 mg PO BID 90 Days Qty: 180 0RF aspirin 81 mg tablet,delayed release (DR/EC) 81 mg PO DAILY 90 Days Qty: 90 1RF simvastatin 20 mg tablet 20 mg PO BEDTIME 90 Days Qty: 90 1RF (DME) FreeStyle Test Strip See Rx Instructions .ROUTE .MEDSUPPLY Qty: 100 0RF Rx Instructions: As directed (DME) lancets [FreeStyle Lancets] 28 gauge misc See Rx Instructions .ROUTE .MEDSUPPLY Qty: 100 0RF Rx Instructions: As directed (DME) comp.stocking,thigh,long,x-lrg Misc See Rx Instructions .ROUTE .MEDSUPPLY Qty: 2 0RF Rx Instructions: As directed
[2022-08-01 21:23] VITALS: BP 144/77; PULSE 109; RESP 20; TEMP 37.4; O2SAT 98
--- NOTE | 2022-08-01 21:45 | PC.NURSE ---
iv access was lost, new access obtained by the charge nurse
--- NOTE | 2022-08-01 21:46 | PC.NURSE ---
patients ivf restarted per order
--- NOTE | 2022-08-01 22:02 | PC.NURSE ---
Pt continues with flank pain 06/17. Pt telemetry shows NSR, and meds were administered as order.
[2022-08-01 22:33] VITALS: BP 171/76; PULSE 111; RESP 20; TEMP 37.5; O2SAT 98
[2022-08-01 22:38] LABS: Glucose, Whole Blood 295 mg/dL (60-115)
--- NOTE | 2022-08-01 22:44 | PC.NURSE ---
Pt POC is 295, it has decreased from when is came in. RN has spoken to Dr. Claire abt his care plan. The plan is for pt to finish IVF, give more pain meds and repeat chemistry labs. will continue to monitor.
[2022-08-01] MEDS: oxyCODONE HCl Immed Release 5 MG TABLET PO (22:58)
--- NOTE | 2022-08-01 22:59 | PC.NURSE ---
patient medicated per order
--- NOTE | 2022-08-01 23:00 | PC.NURSE ---
ivf continue to run slowly
[2022-08-01 23:07] LABS: Alanine Aminotransferase 22 U/L (0-40); Albumin Level 4.2 g/dL (3.5-5.0); Alkaline Phosphatase 141 U/L (39-117); Anion Gap 21 (12-20); Aspartate Amino Transferase 22 U/L (5-37); Bilirubin Total 0.7 mg/dL (0.0-1.0); Blood Urea Nitrogen 15 mg/dL (9-16); Calcium 8.3 mg/dL (8.4-10.2); Carbon Dioxide 20 mmol/L (22-29); Chloride 103 mmol/L (96-108); Estimated Glomerular Filt Rate 51; Glucose Random 332 mg/dL (60-115); Potassium 4.7 mmol/L (3.3-5.1); Sodium 139 mmol/L (135-145); Total Protein 6.8 g/dL (6.5-8.0)
[2022-08-02] MEDS: Insulin Lispro 100 UNIT/ML 3 ML VIAL SUBCUT ×2 (01:21→21:24)
[2022-08-02 01:32] VITALS: BP 145/79; PULSE 97; RESP 20; O2SAT 96
--- NOTE | 2022-08-02 01:33 | P.HPHOSP_ITS ---
History of Present Illness Date of Service: 08/02/22 Chief Complaint: flank pain 58-year-old male with past medical history of morbid obesity, ZANDER, HLD, diabetes, HTN presents to the hospital with complaints of right flank pain. Patient reports that the symptoms started yesterday, the pain is localized to the right flank radiating down the groin. He denies having any urinary symptoms with no dysuria frequency urgency. The pain is 10/10, constant, no relieving or exacerbating factors. Sharp stabbing pain. Patient denies any fever, no chills, denies any chest pain, no shortness of breath no abdominal pain nausea or vomiting, no diarrhea constipation, no urinary symptoms and no lower extremity edema. Denies any history of kidney stones on arrival to the ED patient hemodynamically stable no significant abnormal vitals Labs are significant for WBC count of 9.1, hemoglobin of 12.8, hematocrit of 39, UA positive for blood, creatinine of 1.41 with a baseline of around 1, BUN normal. abdomen pelvic CT shows mild right-sided hydronephrosis secondary to 2 mm calculus within the distal right ureter, diffusely decreased liver attenuation suggesting hepatic steatosis patient started on IV fluids and analgesics and will be admitted for further management Review of Systems Review of Systems: Yes all other systems are reviewed and are negative [facility] Medical History (Updated 08/02/22 @ 06:51 by Frida Mclaughlin MD) Colon cancer screening DMII (diabetes mellitus, type 2) HLD (hyperlipidemia) HTN (hypertension) Lower extremity edema Obese ZANDER (obstructive sleep apnea) Family History Father Medical history unknown Mother Hypertension Diabetes ZANDER (obstructive sleep apnea) Stroke Brother Diabetes Surgical History (Updated 08/02/22 @ 06:47 by Frida Mclaughlin MD) History of tonsillectomy No pertinent past surgical history Social History Housing: House Patient Tobacco Use Status: Never used Tobacco Use of substances other than those prescribed or required for medical reasons: No Advance Directives: No Advance Directives Information Provided: Yes Current occupational status: employed Meds Allergies Allergy/AdvReac Type Severity Reaction Status Date / Time empagliflozin [Jardiance] AdvReac Unknown penile Verified 03/16/22 16:15 swelling Active Medications: Current Medications Acetaminophen (Acetaminophen 325 Mg Tablet) 650 mg PO Q6H PRN PRN Reason: Pain, Mild (Pain Scale 1-3) Docusate Sodium (Docusate Sodium 100 Mg Capsule) 100 mg PO DAILY PRN PRN Reason: Constipation Enoxaparin Sodium (Enoxaparin Sodium 40 Mg/0.4 Ml Syringe) 40 mg SUBCUT Q24H PRANAY Lactated Ringer's (Lr) 1,000 mls @ 100 mls/hr IVCONT .Q10H PRANAY Morphine Sulfate (Morphine Sulfate 4 Mg/Ml Cartridge) 4 mg IVPUSH Q4H PRN; Protocol PRN Reason: Pain, Severe (Pain Scale 7-10) Ondansetron HCl (Ondansetron Hcl 4 Mg/2 Ml Vial) 4 mg IVPUSH Q8H PRN PRN Reason: Nausea and Vomiting Sodium Chloride (0.9 % Sodium Chloride Flush 3 Ml Syringe) 3 ml IVFLUSH QSHIFT PRANAY Physical Exam Vital Signs and Narrative: Vital Signs: Last Vital Signs Temp 99.5 F 08/01/22 22:33 Pulse 97 08/02/22 01:32 Resp 20 08/02/22 01:32 BP 145/79 H 08/02/22 01:32 Pulse Ox 96 08/02/22 01:32 O2 Del Method 08/02/22 01:32 BMI result Body Mass Index 45.1 Const: Other: obese patient General: cooperative and no acute distress Orientation/consciousness: patient oriented x3 Eyes: General: appearance normal, both eyes and all related structures Pupils: Equal, round and reactive pupils present Resp: Effort & Inspection: normal respiratory effort Auscultation: clear to auscultation bilaterally Cardio: Rate: regular rate Rhythm: regular rhythm GI: Palpation (GI): Soft to palpation Auscultation: normal bowel sounds : Other: right CVA tenderness Skin: General skin exam: no rashes or lesions noted Neuro: General: patient oriented x3 Cranial nerves: Yes Equal, round and reactive pupils present Cognition (Neuro): normal cognition Extrem: General: Yes normal to inspection and Yes no pedal edema Results Labs CBC and Chem 7: 08/02/22 04:17 08/02/22 04:17 Labs: Laboratory Results - last 24 hr 09/24/22 09/24/22 09/24/22 14:29 14:29 14:29 MCV 85.8 MCH 28.0 MCHC 32.7 RDW 13.5 Plt Count 262 MPV 9.8 Immature Gran % (Auto) 0.8 H Neut % (Auto) 80.4 H Lymph % (Auto) 12.5 L [place] % (Auto) 5.4 Eos % (Auto) 0.5 Baso % (Auto) 0.4 Lymph # (Auto) 1.3 [place] # (Auto) 0.5 Eos # (Auto) 0.1 Baso # (Auto) 0.0 Abs Immat Gran (auto) 0.08 H Absolute Neuts (auto) 8.0 Absolute Nucleated RBC 0.000 Nucleated RBC % (auto) 0.0 Anion Gap 22 H Estim Creat Clear Calc 77.2 Estimated GFR 53 POC Glucose Random Glucose 383 H* Calcium 9.1 Total Bilirubin 1.1 H Direct Bilirubin 0.4 AST 23 ALT 24 Alkaline Phosphatase 157 H Total Protein 7.4 Albumin 4.6 Lipase 22 Urine Color Yellow Urine Appearance Clear Urine pH 6.0 Ur Specific [place] 1.015 Urine Protein 30 (1+) H Urine Glucose (UA) >=1000 H Urine Ketones 15 Urine Blood Large (3+) H Urine Nitrite Negative Ur Leukocyte Esterase Negative Urine RBC >20 H Urine WBC 0-5 Ur Squamous Epith Cells 0-2 Urine Bacteria None Seen Hyaline Casts 0-2 08/01/22 08/01/22 22:34 22:40 MCV MCH MCHC RDW Plt Count MPV Immature Gran % (Auto) Neut % (Auto) Lymph % (Auto) [place] % (Auto) Eos % (Auto) Baso % (Auto) Lymph # (Auto) [place] # (Auto) Eos # (Auto) Baso # (Auto) Abs Immat Gran (auto) Absolute Neuts (auto) Absolute Nucleated RBC Nucleated RBC % (auto) Anion Gap 21 H Estim Creat Clear Calc 75.0 Estimated GFR 51 POC Glucose 295 H Random Glucose 332 H Calcium 8.3 L D Total Bilirubin 0.7 Direct Bilirubin AST 22 ALT 22 Alkaline Phosphatase 141 H Total Protein 6.8 Albumin 4.2 Lipase Urine Color Urine Appearance Urine pH Ur Specific [place] Urine Protein Urine Glucose (UA) Urine Ketones Urine Blood Urine Nitrite Ur Leukocyte Esterase Urine RBC Urine WBC Ur Squamous Epith Cells Urine Bacteria Hyaline Casts Imaging Radiologist's Impressions: Impressions Abdomen Ultrasound 08/01/22 15:23 IMPRESSION: 1. Diffusely increased hepatic echotexture consistent with steatosis. 2. Normal gallbladder. No sonographic evidence of cholelithiasis or acute cholecystitis. 3. No biliary ductal dilation. 4. Slight fullness of the right renal pelvis versus minimal right hydronephrosis. Abdomen/Pelvis CT 08/01/22 16:41 IMPRESSION: -Mild right-sided hydronephrosis secondary to a 2 mm calculus within the distal right ureter. -Diffusely decreased liver attenuation suggesting hepatic steatosis. Correlation with liver enzymes recommended. Fleischner guidelines were followed. Assessment and Plan (1) ANA (acute kidney injury): Status: Acute (2) Ureterolithiasis: Status: Acute (3) Hydronephrosis: Qualifiers: Hydronephrosis type: with renal calculous obstruction Qualified Code(s): N13.2 - Hydronephrosis with renal and ureteral calculous obstruction Status: Acute (4) Intractable pain: Status: Acute Plan 52-year-old male with past medical history of HTN, HLD, and diabetes presents to the hospital with complaints of right flank pain found to have hydronephrosis and urolithiasis # urolithiasis - likely to be obstructing the moderate hydronephrosis - IV fluids - urology consulted - IV analgesics # ANA - likely obstructive - BUN normal - IV fluids - urology consult for possible stone removal - BMP # hydronephrosis - acute on likely secondary to urolithiasis - will treat with IV fluids - likely will need stone removal if the stone does not passed spontaneously # intractable pain - secondary to kidney stone - IV analgesics # diabetes - low-dose sliding scale insulin - hold metformin - diabetic diet # HTN - elevated - resume home medications DVT prophylaxis Lovenox Pt will require a minimum 2 night hospital stay for intractable pain, ANA, requiring IV fluids Quality Stroke Does the patient have a stroke diagnosis?: No VTE Prior VTE?: No VTE Risk Level:: Medical - moderate - high VTE Device Contraindication: Treatment Not Indicated VTE Drug Contraindication: N/A - Med Ordered
[2022-08-02] MEDS: Enoxaparin Sodium 40 MG/0.4 ML SYRINGE SUBCUT (02:12)
[2022-08-02] MEDS: Lactated Ringers 1,000 ML 100 ML IVCONT ×2 (02:12→13:58)
[2022-08-02] MEDS: Morphine Sulfate 4 MG/ML CARTRIDGE IVPUSH ×3 (02:12→17:52)
[2022-08-02] MEDS: ondansetron HCL 4 MG/2 ML VIAL IVPUSH (02:12)
[2022-08-02 02:16] LABS: Alanine Aminotransferase 22 U/L (0-40); Albumin Level 4.2 g/dL (3.5-5.0); Alkaline Phosphatase 136 U/L (39-117); Anion Gap 19 (12-20); Aspartate Amino Transferase 19 U/L (5-37); Bilirubin Total 0.9 mg/dL (0.0-1.0); Blood Urea Nitrogen 15 mg/dL (9-16); Calcium 8.5 mg/dL (8.4-10.2); Carbon Dioxide 20 mmol/L (22-29); Chloride 105 mmol/L (96-108); Creatinine Clr Calc Pharmacy 76.1; Estimated Glomerular Filt Rate 52; Glucose Random 275 mg/dL (60-115); Potassium 4.1 mmol/L (3.3-5.1); Sodium 140 mmol/L (135-145); Total Protein 6.6 g/dL (6.5-8.0)
--- NOTE | 2022-08-02 02:24 | PC.NURSE ---
Pt. resting in bed, c/o increasing pain in right lower quadrant. Medicated with morphine and zophran per Jan. Started LR infusion as per JAN. Will continue to monitor.
--- NOTE | 2022-08-02 04:21 | PC.NURSE ---
Pt. resting quietly in bed. Pt. reports relief from pain after PRN medications. Covid swab completed.
[2022-08-02 04:49] LABS: COVID-19 Test Negative (Negative)
[2022-08-02 05:20] LABS: MANUAL DIFF FLAG NO
[2022-08-02 05:25] LABS: Basophils Percent Auto 0.3 % (0-2); Eosinophils Absolute Auto 0.1 X10*3/uL (0.0-0.4); Eosinophils Percent Auto 0.7 % (0-4); Hemoglobin 12.8 g/dl (14.0-18.0); Imm Gran Abs Auto 0.08 X10*3/uL (0.00-0.03); Imm Gran Pct Auto 0.9 % (0.0-0.4); Lymphocytes Absolute Auto 1.5 X10*3/uL (1.2-4.9); Lymphocytes Percent Auto 16.7 % (20-40); Mean Corpuscular HGB Conc 32.8 g/dl (31.0-36.0); Mean Corpuscular Hemoglobin 28.4 pg (27.0-33.0); Mean Corpuscular Volume 86.5 fL (80.0-98.0); Mean Platelet Volume 10.2 fL (9.4-12.4); Monocytes Absolute Auto 0.8 X10*3/uL (0.1-1.2); Monocytes Percent Auto 8.7 % (2-11); Neutrophils Absolute Auto 6.6 x10*3/uL (2.0-8.3); Neutrophils Percent Auto 72.7 % (45-73); Platelet Count 252 X10*3/uL (160-400); Red Blood Count 4.51 X10*6/uL (4.60-5.80); Red Cell Distribution Width 13.5 % (11.0-16.0); White Blood Count 9.1 X10*3/uL (4.8-10.8)
[2022-08-02 05:45] LABS: Anion Gap 19 (12-20); Blood Urea Nitrogen 15 mg/dL (9-16); Calcium 8.3 mg/dL (8.4-10.2); Carbon Dioxide 20 mmol/L (22-29); Chloride 106 mmol/L (96-108); Creatinine Clr Calc Pharmacy 84.4; Estimated Glomerular Filt Rate 58; Glucose Random 244 mg/dL (60-115); Sodium 141 mmol/L (135-145)
[2022-08-02 07:16] LABS: Glucose, Whole Blood 251 mg/dL (60-115)
[2022-08-02 07:44] VITALS: BP 153/74; PULSE 102; RESP 18; O2SAT 96
--- NOTE | 2022-08-02 08:06 | PHA.MEDREC ---
Pharmacy Consult ? Medication Reconciliation Pharmacy has completed the medication reconciliation. Thanks Walter
--- NOTE | 2022-08-02 09:59 | PC.NURSE ---
pt alert and oriented, skin appropriate for ethnicity, reports right sided abd/flank area pain at 7/10 at this time sinus tach on the monitor at 104
[2022-08-02 12:30] VITALS: BP 177/85; PULSE 106; RESP 20; TEMP 37.9
[2022-08-02 12:39] LABS: Glucose, Whole Blood 299 mg/dL (60-115)
--- NOTE | 2022-08-02 13:16 | PM.EVENT ---
Event Note Date of Service: 08/02/22 Event Note: 52-year-old male with past medical history of HTN, HLD, and diabetes presents to the hospital with complaints? of right flank pain found to have hydronephrosis and urolithiasis at present patient is resting in bed complaining of right flank pain requesting for pain medication #? right flank pain due to 2 mm distal right ureteric stone and hydronephrosis UA unremarkable continue IV fluids and analgesics await Urology input #? ANA-? likely? obstructive, continue IV fluids follow BMP #? diabetes-? continue low-dose sliding scale insulin,? hold metformin -? diabetic diet #? HTN -? elevated -? resume home medications # hyperlipidemia resume statin ?DVT prophylaxis Lovenox
[2022-08-02 13:59] VITALS: BP 129/60; PULSE 107; RESP 20; TEMP 36.3; O2SAT 95
--- NOTE | 2022-08-02 14:06 | PC.NURSE ---
Pt came in from the ER, received report. Pt has LR running at 100 ml/hr. Pt POC was 299 and insulin was hold d/t Dr. Smith order on 2:00p.m via tiger text with TADEO Curiel. Pt V/s are stable and pt pain has decreased.
[2022-08-02 18:01] VITALS: BP 172/63; PULSE 101; RESP 16; TEMP 37.1; O2SAT 98
[2022-08-02 18:08] LABS: Glucose, Whole Blood 240 mg/dL (60-115)
[2022-08-02 20:00] VITALS: BP 165/64; PULSE 108; RESP 16; TEMP 37.2; O2SAT 96
[2022-08-02 20:49] LABS: Glucose, Whole Blood 265 mg/dL (60-115)
[2022-08-02] MEDS: Atorvastatin Calcium 10 MG TABLET PO (21:25)
[2022-08-02] MEDS: Metoprolol Tartrate 100 MG TABLET PO (21:25)
[2022-08-02] MEDS: 0.9 % Sodium Chloride Flush 3 ML SYRINGE IVFLUSH (23:53)
[2022-08-02] MEDS: Docusate Sodium 100 MG CAPSULE PO (23:54)
[2022-08-03] VITALS (13 sets, daily range): BP systolic 108–153; BP diastolic 57–83; PULSE 70–95; RESP 16–20; TEMP 36.4–37; O2SAT 94–98
[2022-08-03] MEDS: Morphine Sulfate 4 MG/ML CARTRIDGE IVPUSH ×2 (00:01→13:44)
[2022-08-03 00:28] LABS: Glucose, Whole Blood 290 mg/dL (60-115)
[2022-08-03] MEDS: Enoxaparin Sodium 40 MG/0.4 ML SYRINGE SUBCUT (00:43)
[2022-08-03 07:30] LABS: Glucose, Whole Blood 298 mg/dL (60-115)
[2022-08-03] MEDS: Lactated Ringers 1,000 ML 100 ML IVCONT ×2 (08:39→21:49)
--- NOTE | 2022-08-03 10:06 | MHC.CM.PN ---
PATIENT LIVES WITH . COVID (BOOSTER) AND FLU VACCINATED THIS WEEK. NO DME OR VNA SERVICES PCP IS REMBERTO WEBSTER NO HCP ON FILE BUT PATIENT STATES IT IS HIS , HUNTER ([phone]) CASE MANAGEMENT CAN ASSIST WITH COMPLETION
[2022-08-03] MEDS: Insulin Lispro 100 UNIT/ML 3 ML VIAL SUBCUT ×4 (10:08→22:08)
[2022-08-03] MEDS: amLODIPine Besylate 10 MG TABLET PO (10:09)
[2022-08-03] MEDS: Aspirin Enteric Coated 81 MG TABLET.DR PO (10:09)
[2022-08-03] MEDS: Metoprolol Tartrate 100 MG TABLET PO ×2 (10:09→22:09)
[2022-08-03 11:35] LABS: Glucose, Whole Blood 252 mg/dL (60-115)
--- NOTE | 2022-08-03 12:01 | P.PNIM_ITS ---
Subjective Subjective Date of Service: 08/03/22 Interval History: Flank pain improved with IV morphine No fever/chills Review of Systems Review of Systems: Yes all other systems are reviewed and are negative Physical Exam Vital Signs: Vital Signs: Last Vital Signs Temp 97.9 F 08/03/22 09:08 Pulse 83 08/03/22 09:08 Resp 16 08/03/22 09:08 BP 153/83 H 08/03/22 09:08 Pulse Ox 94 08/03/22 09:08 O2 Del Method 08/03/22 09:08 BMI result Body Mass Index 45.1 Gen: in no acute distress HEENT: sclera anicteric, moist mucus membranes Neck: supple Lungs: clear to auscultation bilaterally Heart: regular rate and rhythm, no murmurs Abd: soft, non-tender, non-distended, morbidly obese Ext: no edema Skin: warm/well-perfused Neuro: alert and oriented x3, no focal findings Psych: appropriate affect Objective Data Active Medications Acetaminophen (Acetaminophen 325 Mg Tablet) 650 mg PO Q6H PRN PRN Reason: Pain, Mild (Pain Scale 1-3) Amlodipine Besylate (Amlodipine Besylate 10 Mg Tablet) 10 mg PO DAILY [facility]; Protocol Last Admin: 08/03/22 10:09 Dose: 10 mg Documented By: STEPHON Aspirin (Aspirin Enteric Coated 81 Mg Tablet.Dr) 81 mg PO DAILY [facility] Last Admin: 08/03/22 10:09 Dose: 81 mg Documented By: STEPHON Atorvastatin Calcium (Atorvastatin Calcium 10 Mg Tablet) 10 mg PO BEDTIME [facility] Last Admin: 08/02/22 21:25 Dose: 10 mg Documented By: PRASANTH Dextrose (Dextrose 50 % 25 Gm/50 Ml Syringe) 25 gm IVPUSH Q15M PRN; Protocol PRN Reason: per Hypoglycemia Standing Ord. Docusate Sodium (Docusate Sodium 100 Mg Capsule) 100 mg PO DAILY PRN PRN Reason: Constipation Last Admin: 08/02/22 23:54 Dose: 100 mg Documented By: SUSANA Enoxaparin Sodium (Enoxaparin Sodium 40 Mg/0.4 Ml Syringe) 40 mg SUBCUT Q24H [facility] Last Admin: 08/03/22 00:43 Dose: 40 mg Documented By: SUSANA Glucose (Glucose Gel 15 Gm Gel..Gram.) 15 gm PO Q15M PRN; Protocol PRN Reason: per Hypoglycemia Standing Ord. Lactated Ringer's (Lr) 1,000 mls @ 100 mls/hr IVCONT .Q10H [facility] Last Admin: 08/03/22 08:39 Dose: 100 mls/hr Documented By: STEPHON Insulin Human Lispro (Insulin Lispro 100 Unit/Ml 3 Ml Vial) 0 unit SUBCUT QIDACHS [facility]; Protocol Last Admin: 08/03/22 10:08 Dose: 6 unit Documented By: STEPHON Metoprolol Tartrate (Metoprolol Tartrate 100 Mg Tablet) 100 mg PO BID [facility]; Protocol Last Admin: 08/03/22 10:09 Dose: 100 mg Documented By: STEPHON Morphine Sulfate (Morphine Sulfate 4 Mg/Ml Cartridge) 4 mg IVPUSH Q4H PRN; Protocol PRN Reason: Pain, Severe (Pain Scale 7-10) Last Admin: 08/03/22 00:01 Dose: 4 mg Documented By: SUSANA Ondansetron HCl (Ondansetron Hcl 4 Mg/2 Ml Vial) 4 mg IVPUSH Q8H PRN PRN Reason: Nausea and Vomiting Last Admin: 08/02/22 02:12 Dose: 4 mg Documented By: FRANSICO Pharmacy Consult (Consult Rx Perform Med Rec) 1 each MISCELLANE ONCE PRN PRN Reason: Consult order Sodium Chloride (0.9 % Sodium Chloride Flush 3 Ml Syringe) 3 ml IVFLUSH QSHIFT [facility] Last Admin: 08/03/22 09:13 Dose: Not Given Documented By: STEPHON Non-Admin Reason: IV Running Labs CBC & Chem 7: 08/02/22 04:17 08/02/22 04:17 Labs: Laboratory Results - last 24 hr 08/02/22 08/02/22 08/02/22 12:33 18:04 20:37 POC Glucose 299 H 240 H 265 H 08/03/22 08/03/22 08/03/22 00:13 07:27 11:26 POC Glucose 290 H 298 H 252 H Assessment and Plan (1) Ureterolithiasis: Status: Acute (2) Hydronephrosis: Status: Acute Plan 52-year-old male with past medical history of HTN, HLD, and diabetes presents to the hospital with complaints? of right flank pain found to have hydronephrosis and ureterolithiasis #? ureterolithiasis with hydronephrosis - Urology consulted, to OR Today for operative intervention # obstructive ANA - continue IV fluids, BMP improving, recheck in AM # HTN - continue amlodipine + metoprolol # HLD - continue atorvastatin # DM2 - hold MTF, continue correction-dose lispro # VTE ppx - LMWH In my clinical judgment, the patient requires continued hospitalization for the following reasons: operative intervention Quality Stroke Does the patient have a stroke diagnosis?: No VTE Prior VTE?: No VTE Risk Level:: Medical - moderate - high VTE Device Contraindication: Treatment Not Indicated VTE Drug Contraindication: N/A - Med Ordered
[2022-08-03 16:41] LABS: Glucose, Whole Blood 229 mg/dL (60-115)
--- NOTE | 2022-08-03 18:59 | PC.NURSE ---
call to hospitalist dr. chatterjee regarding patient plan of care following urology procedure. per m.d. patient to remain admitted in hospital. noted elevations in blood sugar md aware trend poc
--- NOTE | 2022-08-03 19:15 | PM.UROCN ---
History of Present Illness Consult details Consult date: 08/03/22 Narrative: Distal right obstructing ureteric stone 2-3 week history of flank pain Two day history of acute right flank pain Came to hospital late Wednesday with acute right distal flank pain 06/17 No relieving factors No prior stone history WBC 9.[address] scan Mild right-sided hydronephrosis secondary to a 2 mm calculus within the distal right ureter Imaging reviewed Based on clinical picture and persistent symptoms recommend intervention with distal ureteroscopy Review of Systems Constitutional: Constitutional: Reports as per HPI and Reports no additional constitutional complaints Cardiovascular: Cardiovascular: Reports as per HPI and Reports no additional cardiovascular complaints Respiratory: Respiratory: Reports as per HPI and Reports no additional respiratory complaints Gastrointestinal: Gastrointestinal: Reports as per HPI and Reports no additional gastrointestinal complaints Genitourinary: Genitourinary: Reports as per HPI Musculoskeletal: Musculoskeletal: Reports no additional musculoskeletal complaints and Reports as per HPI Neurologic: Reports system reviewed and no additional complaints, except as documented and Reports as per HPI PMFSH Past Medical History Medical History (Updated 08/02/22 @ 06:51 by Frida Mclaughlin MD) Colon cancer screening DMII (diabetes mellitus, type 2) HLD (hyperlipidemia) HTN (hypertension) Lower extremity edema Obese ZANDER (obstructive sleep apnea) Family History Family History Father Medical history unknown Mother Hypertension Diabetes ZANDER (obstructive sleep apnea) Stroke Brother Diabetes Surgical History Surgical History (Updated 08/02/22 @ 06:47 by Frida Mclaughlin MD) History of tonsillectomy No pertinent past surgical history Social History Social History Housing: House Patient Tobacco Use Status: Never used Tobacco Use of substances other than those prescribed or required for medical reasons: No Are you DNR?: No Advance Directives: No Advance Directives Information Provided: Yes service: No Current occupational status: employed Meds Allergies Allergy/AdvReac Type Severity Reaction Status Date / Time empagliflozin [Jardiance] AdvReac Unknown penile Verified 01/21/22 16:15 swelling Active Medications: Current Medications Acetaminophen (Acetaminophen 325 Mg Tablet) 650 mg PO Q6H PRN PRN Reason: Pain, Mild (Pain Scale 1-3) Amlodipine Besylate (Amlodipine Besylate 10 Mg Tablet) 10 mg PO DAILY [facility]; Protocol Last Admin: 08/03/22 10:09 Dose: 10 mg Aspirin (Aspirin Enteric Coated 81 Mg Tablet.Dr) 81 mg PO DAILY [facility] Last Admin: 08/03/22 10:09 Dose: 81 mg Atorvastatin Calcium (Atorvastatin Calcium 10 Mg Tablet) 10 mg PO BEDTIME [facility] Last Admin: 08/02/22 21:25 Dose: 10 mg Dextrose (Dextrose 50 % 25 Gm/50 Ml Syringe) 25 gm IVPUSH Q15M PRN; Protocol PRN Reason: per Hypoglycemia Standing Ord. Docusate Sodium (Docusate Sodium 100 Mg Capsule) 100 mg PO DAILY PRN PRN Reason: Constipation Last Admin: 08/02/22 23:54 Dose: 100 mg Enoxaparin Sodium (Enoxaparin Sodium 40 Mg/0.4 Ml Syringe) 40 mg SUBCUT Q24H [facility] Last Admin: 08/03/22 00:43 Dose: 40 mg Glucose (Glucose Gel 15 Gm Gel..Gram.) 15 gm PO Q15M PRN; Protocol PRN Reason: per Hypoglycemia Standing Ord. Lactated Ringer's (Lr) 1,000 mls @ 100 mls/hr IVCONT .Q10H [facility] Last Infusion: 08/03/22 18:32 Dose: Infused Insulin Human Lispro (Insulin Lispro 100 Unit/Ml 3 Ml Vial) 0 unit SUBCUT QIDACHS [facility]; Protocol Last Admin: 08/03/22 18:08 Dose: 4 unit Metoprolol Tartrate (Metoprolol Tartrate 100 Mg Tablet) 100 mg PO BID [facility]; Protocol Last Admin: 08/03/22 10:09 Dose: 100 mg Morphine Sulfate (Morphine Sulfate 4 Mg/Ml Cartridge) 4 mg IVPUSH Q4H PRN; Protocol PRN Reason: Pain, Severe (Pain Scale 7-10) Last Admin: 08/03/22 13:44 Dose: 4 mg Ondansetron HCl (Ondansetron Hcl 4 Mg/2 Ml Vial) 4 mg IVPUSH Q8H PRN PRN Reason: Nausea and Vomiting Last Admin: 08/02/22 02:12 Dose: 4 mg Pharmacy Consult (Consult Rx Perform Med Rec) 1 each MISCELLANE ONCE PRN PRN Reason: Consult order Sodium Chloride (0.9 % Sodium Chloride Flush 3 Ml Syringe) 3 ml IVFLUSH QSHIFT [facility] Last Admin: 08/03/22 16:32 Dose: Not Given Physical Exam Vital Signs: Vital Signs: Last Vital Signs Temp 98.4 F 08/03/22 18:15 Pulse 82 08/03/22 18:15 Resp 20 08/03/22 18:15 BP 140/76 H 08/03/22 18:15 Pulse Ox 95 08/03/22 18:15 O2 Del Method 08/03/22 18:15 BMI result Body Mass Index 45.1 Const: General: cooperative, healthy appearing, comfortable and no acute distress Orientation/consciousness: patient oriented x3 HEENT: Face and sinus: Yes normal facial exam Mouth: moist mucous membranes Neck: Neck: Yes normal visual inspection, Yes full ROM and Yes trachea midline Chest: Chest palpation & inspection: normal inspection of the chest Resp: Effort & Inspection: normal respiratory effort, able to speak in complete sentences and no respiratory distress GI: Inspection: Yes normal to inspection Back/Spine/Pelvis: Cervical Spine: normal cervical lordosis Thoracic/Lumbar Spine: thoracic and lumbar spine normal to inspection Skin: General skin exam: no rashes or lesions noted Neuro: General: patient oriented x3, tone normal and moves all extremities Extrem: General: Yes normal to inspection and Yes capillary refill normal Results Labs Result diagrams: 08/02/22 04:17 08/02/22 04:17 Labs: Abnormal lab results 08/02/22 08/03/22 08/03/22 Range/Units 20:37 00:13 07:27 POC Glucose 265 H 290 H 298 H (60-115) mg/dL 08/03/22 08/03/22 Range/Units 11:26 16:37 POC Glucose 252 H 229 H (60-115) mg/dL Urine 08/01/22 Range/Units 14:29 Urine Color Yellow Urine Appearance Clear Urine pH 6.0 (5.0-9.0) Ur Specific [place] 1.015 (1.005-1.025) Urine Protein 30 (1+) H (Neg-Trace) mg/dL Urine Glucose (UA) >=1000 H (Negative) mg/dL All other labs normal. Assessment and Plan (1) Ureterolithiasis: Status: Acute (2) Hydronephrosis: Qualifiers: Hydronephrosis type: with renal calculous obstruction Qualified Code(s): N13.2 - Hydronephrosis with renal and ureteral calculous obstruction Status: Acute Plan Ureteroscopy We discussed the nature of the decision and reasonable alternatives for performing ureteroscopy. Options such as medical therapy were discussed. Interventions include chemical dissolution, ESWL, ureteroscopy with laser lithotripsy and stent placement, PCNL. The relative uncertainties and benefits related to each alternate procedure were adequately discussed. General surgical risks including, but not limited to - pain, bleeding, infection, myocardial infarction, pulmonary embolus, deep vein thrombosis and cerebrovascular accident which may result in further hospitalization were discussed. Full disclosure of the procedure as well as all major risks, benefits and complications were discussed including but not limited to damage to the urethra, bladder and kidney infection, damage to the ureter, stent migration or malposition, scarring to the renal pelvis, remnant stone fragments, subsequent stone passage with need for secondary procedures. The overall secondary procedure rate is approximately 10-15%. The overall clearance rate is approximately 90-95%. Success of the procedure in the short-term does not necessarily guarantee that long-term success will be maintained. Suitable follow up will need to be maintained. The patient showed understanding of discussion and wishes to proceed with - cystoscopy, retrograde, ureteroscopy, possible lithotripsy/stone basketing and stent on the right side Procedures Date of Service Date of Service: 08/03/22
[2022-08-03 19:19] LABS: Glucose, Whole Blood 227 mg/dL (60-115)
--- NOTE | 2022-08-03 19:45 | HO.ANESPROP2 ---
[facility] Active Problems Active Problems: All Active Problems (Updated 08/02/22 @ 06:51 by Frida Mclaughlin MD) Intractable pain (Acute) Lower extremity edema (Acute) ANA (acute kidney injury) (Acute) Ureterolithiasis (Acute) Hydronephrosis (Acute) Past Medical History Medical History Colon cancer screening DMII (diabetes mellitus, type 2) HLD (hyperlipidemia) HTN (hypertension) Lower extremity edema Obese ZANDER (obstructive sleep apnea) Functional capacity: independent ambulation Family History Family History Father Medical history unknown Mother Hypertension Diabetes ZANDER (obstructive sleep apnea) Stroke Brother Diabetes Family history of problems with anesthesia: No Surgical History Surgical History History of tonsillectomy No pertinent past surgical history History of Problems with Anesthesia: No Social History Social History Housing: House Patient Tobacco Use Status: Never used Tobacco Use of substances other than those prescribed or required for medical reasons: No Are you DNR?: No Advance Directives: No Advance Directives Information Provided: Yes service: No Current occupational status: employed Meds Allergies Allergy/AdvReac Type Severity Reaction Status Date / Time empagliflozin [Jardiance] AdvReac Unknown penile Verified 01/21/22 16:15 swelling Active Medications: Current Medications Acetaminophen (Acetaminophen 325 Mg Tablet) 650 mg PO Q6H PRN PRN Reason: Pain, Mild (Pain Scale 1-3) Amlodipine Besylate (Amlodipine Besylate 10 Mg Tablet) 10 mg PO DAILY PRANAY; Protocol Last Admin: 08/03/22 10:09 Dose: 10 mg Aspirin (Aspirin Enteric Coated 81 Mg Tablet.) 81 mg PO DAILY PRANAY Last Admin: 08/03/22 10:09 Dose: 81 mg Atorvastatin Calcium (Atorvastatin Calcium 10 Mg Tablet) 10 mg PO BEDTIME PRANAY Last Admin: 08/02/22 21:25 Dose: 10 mg Dextrose (Dextrose 50 % 25 Gm/50 Ml Syringe) 25 gm IVPUSH Q15M PRN; Protocol PRN Reason: per Hypoglycemia Standing Ord. Docusate Sodium (Docusate Sodium 100 Mg Capsule) 100 mg PO DAILY PRN PRN Reason: Constipation Last Admin: 08/02/22 23:54 Dose: 100 mg Enoxaparin Sodium (Enoxaparin Sodium 40 Mg/0.4 Ml Syringe) 40 mg SUBCUT Q24H [facility] Last Admin: 08/03/22 00:43 Dose: 40 mg Glucose (Glucose Gel 15 Gm Gel..Gram.) 15 gm PO Q15M PRN; Protocol PRN Reason: per Hypoglycemia Standing Ord. Lactated Ringer's (Lr) 1,000 mls @ 100 mls/hr IVCONT .Q10H [facility] Last Infusion: 08/03/22 18:32 Dose: Infused Levofloxacin (Levaquin) 500 mg in 100 mls @ 100 mls/hr IV PREOP ONE Stop: 08/03/22 20:18 Insulin Human Lispro (Insulin Lispro 100 Unit/Ml 3 Ml Vial) 0 unit SUBCUT QIDACHS [facility]; Protocol Last Admin: 08/03/22 18:08 Dose: 4 unit Metoprolol Tartrate (Metoprolol Tartrate 100 Mg Tablet) 100 mg PO BID [facility]; Protocol Last Admin: 08/03/22 10:09 Dose: 100 mg Morphine Sulfate (Morphine Sulfate 4 Mg/Ml Cartridge) 4 mg IVPUSH Q4H PRN; Protocol PRN Reason: Pain, Severe (Pain Scale 7-10) Last Admin: 08/03/22 13:44 Dose: 4 mg Ondansetron HCl (Ondansetron Hcl 4 Mg/2 Ml Vial) 4 mg IVPUSH Q8H PRN PRN Reason: Nausea and Vomiting Last Admin: 08/02/22 02:12 Dose: 4 mg Pharmacy Consult (Consult Rx Perform Med Rec) 1 each MISCELLANE ONCE PRN PRN Reason: Consult order Sodium Chloride (0.9 % Sodium Chloride Flush 3 Ml Syringe) 3 ml IVFLUSH QSHIFT [facility] Last Admin: 08/03/22 16:32 Dose: Not Given Exam Exam Date and Time: August 03, [id number] Height,Weight and Vital Signs: Height 5 ft 6 in Weight 127.006 kg Last Vital Signs Temp 98.4 F 08/03/22 18:15 Pulse 82 08/03/22 18:15 Resp 20 08/03/22 18:15 BP 140/76 H 08/03/22 18:15 Pulse Ox 95 08/03/22 18:15 O2 Del Method 08/03/22 18:15 Pertinent Lab Results Pertinent Lab Results: Laboratory Tests 08/01/22 08/01/22 08/01/22 14:29 14:29 14:29 WBC 10.0 RBC 4.92 Hgb 13.8 L Hct 42.2 MCV 85.8 MCH 28.0 MCHC 32.7 RDW 13.5 Plt Count 262 MPV 9.8 Immature Gran % (Auto) 0.8 H Neut % (Auto) 80.4 H Lymph % (Auto) 12.5 L [place] % (Auto) 5.4 Eos % (Auto) 0.5 Baso % (Auto) 0.4 Lymph # (Auto) 1.3 [place] # (Auto) 0.5 Eos # (Auto) 0.1 Baso # (Auto) 0.0 Abs Immat Gran (auto) 0.08 H Absolute Neuts (auto) 8.0 Absolute Nucleated RBC 0.000 Nucleated RBC % (auto) 0.0 Sodium 139 Potassium 4.4 Chloride 102 Carbon Dioxide 19 L Anion Gap 22 H BUN 16 Creatinine 1.41 H Estim Creat Clear Calc 77.2 Estimated GFR 53 POC Glucose Random Glucose 383 H* Calcium 9.1 Total Bilirubin 1.1 H Direct Bilirubin 0.4 AST 23 ALT 24 Alkaline Phosphatase 157 H Total Protein 7.4 Albumin 4.6 Lipase 22 Urine Color Yellow Urine Appearance Clear Urine pH 6.0 Ur Specific [place] 1.015 Urine Protein 30 (1+) H Urine Glucose (UA) >=1000 H Urine Ketones 15 Urine Blood Large (3+) H Urine Nitrite Negative Ur Leukocyte Esterase Negative Urine RBC >20 H Urine WBC 0-5 Ur Squamous Epith Cells 0-2 Urine Bacteria None Seen Hyaline Casts 0-2 COVID-19 ([facility]) COVID-19 Clin Com 08/01/22 08/01/22 08/02/22 22:34 22:40 01:49 WBC RBC Hgb Hct MCV MCH MCHC RDW Plt Count MPV Immature Gran % (Auto) Neut % (Auto) Lymph % (Auto) [place] % (Auto) Eos % (Auto) Baso % (Auto) Lymph # (Auto) [place] # (Auto) Eos # (Auto) Baso # (Auto) Abs Immat Gran (auto) Absolute Neuts (auto) Absolute Nucleated RBC Nucleated RBC % (auto) Sodium 139 140 Potassium 4.7 4.1 Chloride 103 105 Carbon Dioxide 20 L 20 L Anion Gap 21 H 19 BUN 15 15 Creatinine 1.45 H 1.43 H Estim Creat Clear Calc 75.0 76.1 Estimated GFR 51 52 POC Glucose 295 H Random Glucose 332 H 275 H Calcium 8.3 L D 8.5 Total Bilirubin 0.7 0.9 Direct Bilirubin AST 22 19 ALT 22 22 Alkaline Phosphatase 141 H 136 H Total Protein 6.8 6.6 Albumin 4.2 4.2 Lipase Urine Color Urine Appearance Urine pH Ur Specific [place] Urine Protein Urine Glucose (UA) Urine Ketones Urine Blood Urine Nitrite Ur Leukocyte Esterase Urine RBC Urine WBC Ur Squamous Epith Cells Urine Bacteria Hyaline Casts COVID-19 ([facility]) [employer] 08/02/22 08/02/22 08/02/22 04:17 04:17 04:18 WBC 9.1 RBC 4.51 L Hgb 12.8 L Hct 39.0 L MCV 86.5 MCH 28.4 MCHC 32.8 RDW 13.5 Plt Count 252 MPV 10.2 Immature Gran % (Auto) 0.9 H Neut % (Auto) 72.7 Lymph % (Auto) 16.7 L [place] % (Auto) 8.7 Eos % (Auto) 0.7 Baso % (Auto) 0.3 Lymph # (Auto) 1.5 [place] # (Auto) 0.8 Eos # (Auto) 0.1 Baso # (Auto) 0.0 Abs Immat Gran (auto) 0.08 H Absolute Neuts (auto) 6.6 Absolute Nucleated RBC 0.000 Nucleated RBC % (auto) 0.0 Sodium 141 Potassium 4.0 Chloride 106 Carbon Dioxide 20 L Anion Gap 19 BUN 15 Creatinine 1.29 Estim Creat Clear Calc 84.4 Estimated GFR 58 POC Glucose Random Glucose 244 H Calcium 8.3 L Total Bilirubin Direct Bilirubin AST ALT Alkaline Phosphatase Total Protein Albumin Lipase Urine Color Urine Appearance Urine pH Ur Specific [place] Urine Protein Urine Glucose (UA) Urine Ketones Urine Blood Urine Nitrite Ur Leukocyte Esterase Urine RBC Urine WBC Ur Squamous Epith Cells Urine Bacteria Hyaline Casts COVID-19 ([facility]) Negative COVID-19 [employer] Com See Note 08/02/22 08/02/22 08/02/22 07:11 12:33 18:04 WBC RBC Hgb Hct MCV MCH MCHC RDW Plt Count MPV Immature Gran % (Auto) Neut % (Auto) Lymph % (Auto) [place] % (Auto) Eos % (Auto) Baso % (Auto) Lymph # (Auto) [place] # (Auto) Eos # (Auto) Baso # (Auto) Abs Immat Gran (auto) Absolute Neuts (auto) Absolute Nucleated RBC Nucleated RBC % (auto) Sodium Potassium Chloride Carbon Dioxide Anion Gap BUN Creatinine Estim Creat Clear Calc Estimated GFR POC Glucose 251 H 299 H 240 H Random Glucose Calcium Total Bilirubin Direct Bilirubin AST ALT Alkaline Phosphatase Total Protein Albumin Lipase Urine Color Urine Appearance Urine pH Ur Specific [place] Urine Protein Urine Glucose (UA) Urine Ketones Urine Blood Urine Nitrite Ur Leukocyte Esterase Urine RBC Urine WBC Ur Squamous Epith Cells Urine Bacteria Hyaline Casts COVID-19 ([facility]) COVID-19 [employer] 08/02/22 08/03/22 08/03/22 20:37 00:13 07:27 WBC RBC Hgb Hct MCV MCH MCHC RDW Plt Count MPV Immature Gran % (Auto) Neut % (Auto) Lymph % (Auto) [place] % (Auto) Eos % (Auto) Baso % (Auto) Lymph # (Auto) [place] # (Auto) Eos # (Auto) Baso # (Auto) Abs Immat Gran (auto) Absolute Neuts (auto) Absolute Nucleated RBC Nucleated RBC % (auto) Sodium Potassium Chloride Carbon Dioxide Anion Gap BUN Creatinine Estim Creat Clear Calc Estimated GFR POC Glucose 265 H 290 H 298 H Random Glucose Calcium Total Bilirubin Direct Bilirubin AST ALT Alkaline Phosphatase Total Protein Albumin Lipase Urine Color Urine Appearance Urine pH Ur Specific [place] Urine Protein Urine Glucose (UA) Urine Ketones Urine Blood Urine Nitrite Ur Leukocyte Esterase Urine RBC Urine WBC Ur Squamous Epith Cells Urine Bacteria Hyaline Casts COVID-19 ([facility]) COVID-19 [employer] 08/03/22 08/03/22 08/03/22 11:26 16:37 19:15 WBC RBC Hgb Hct MCV MCH MCHC RDW Plt Count MPV Immature Gran % (Auto) Neut % (Auto) Lymph % (Auto) [place] % (Auto) Eos % (Auto) Baso % (Auto) Lymph # (Auto) [place] # (Auto) Eos # (Auto) Baso # (Auto) Abs Immat Gran (auto) Absolute Neuts (auto) Absolute Nucleated RBC Nucleated RBC % (auto) Sodium Potassium Chloride Carbon Dioxide Anion Gap BUN Creatinine Estim Creat Clear Calc Estimated GFR POC Glucose 252 H 229 H 227 H Random Glucose Calcium Total Bilirubin Direct Bilirubin AST ALT Alkaline Phosphatase Total Protein Albumin Lipase Urine Color Urine Appearance Urine pH Ur Specific [place] Urine Protein Urine Glucose (UA) Urine Ketones Urine Blood Urine Nitrite Ur Leukocyte Esterase Urine RBC Urine WBC Ur Squamous Epith Cells Urine Bacteria Hyaline Casts COVID-19 ([facility]) COVID-19 Clin Com Airway Heart: RRR Lungs: CTA Assessment and Plan Final Anesthetic Review Family History of Problems with Anesthesia: No History of Problems with Anesthesia: No ASA Class: III and Emergency Final Preanesthetic Review: No Changes in Pt Med Stat, Meds/Allgs Chart Reviewed, Consent Obtained/Reviewed and Anes Risks/Benef Reviewed Patient Risk: Intermediate Procedure Risk: Low Anesthetic Plan Anesthetic Plan: GA Disposition: Standard PACU
--- NOTE | 2022-08-03 20:04 | MHC.SHP ---
Pre-Procedural Eval Section A Date of Service: 08/03/22 The patient is an INPATIENT: Yes Changes since office visit: No Cold of Flu in the past 2 weeks, No New Medical Problems, No Changes in Medication and No Patient answered all questions The History & Physical has been completed within 30 days and I have reviewed it.: Yes Section B Chief Complaint: obstructing stone Details of Present Illness: distal right obstructing stone Allergies: Allergies Allergy/AdvReac Type Severity Reaction Status Date / Time empagliflozin [Jardiance] AdvReac Unknown penile Verified 01/21/22 16:15 swelling Plan Diagnosis/Plan: Unchanged ( right rigid ureteroscopy, laser lithotripsy, stent placement) I have reviewed the history and physical and performed a pertinent physical examination on my patient. No changes have occurred unless specified.
--- NOTE | 2022-08-03 20:49 | W.PM.OPN ---
Operative Note Operative Note Date of Service: 08/03/22 Narrative: PreOperative Diagnosis: distal right ureteric stone Post Operative Diagnosis: distal right ureteric stone Procedure: - cystoscopy, right retrograde - right dilatation of ureteric orifice under fluoroscopy - right ureteroscopy - right stent placement Surgeon: Dr Darwin Zuñiga Anesthesia: General Indications for procedure: distal right ureteric stone with hydronephrosis and persistent pain Procedure: After informed consent was verified patient was brought to the operating placed in supine position. Anesthesia was administered per protocol. Patient was placed in modified dorsal lithotomy position and prepped and draped in a sterile fashion. Safety pause time-out and side of surgery confirmed. Antibiotics confirmed. A 22 [place]ian cystoscope was inserted per urethra. Bladder was normal in its entirety. Both ureteric orifices were in normal position. The right ureteric orifice was cannulated and a retrograde examination was performed. filling defect in distal portion of right ureter with proximal hydronephrosis . A Sensor guidewire was placed up to the level of the renal pelvis under fluoroscopy. The rigid cystoscope was removed. A Hubbard dilator was placed over the Sensor guidewire and used to dilate the ureteric orifice under fluoroscopy. The dilator was removed. the Nellie was difficult to place. The semi rigid ureteral scope was placed alongside the Sensor guidewire. Some mucosa been lifted away from the edge of the ureter. Debris and hydronephrotic fluid was emerging from ureter. It appeared the stone had ordered been broken a small pieces at the time ureteroscopy the rigid ureteral scope was removed. A 22 [place]udian cystoscope was backloaded over the wire. A 6 [place]ian by 24 cm double-J stent was placed into the renal pelvis and bladder under a combination of fluoroscopy and direct visualization. The bladder was emptied. The patient tolerated the procedure well and was extubated in the operating room, and transferred in stable condition to the recovery area. Pathology: Drains: Double-J stent
[2022-08-03 21:49] LABS: Glucose, Whole Blood 248 mg/dL (60-115)
[2022-08-03] MEDS: Acetaminophen 325 MG TABLET 650 MG PO (22:08)
[2022-08-03] MEDS: Phenazopyridine HCL 100 MG TABLET PO (22:08)
[2022-08-03] MEDS: Atorvastatin Calcium 10 MG TABLET PO (22:09)
[2022-08-04] VITALS: BP 138/67; PULSE 77; RESP 17; TEMP 36.7; O2SAT 97
[2022-08-04 03:44] VITALS: BP 133/70; PULSE 53; RESP 17; TEMP 36.4; O2SAT 99
[2022-08-04 06:31] LABS: Anion Gap 18 (12-20); Blood Urea Nitrogen 16 mg/dL (9-16); Calcium 8.1 mg/dL (8.4-10.2); Carbon Dioxide 22 mmol/L (22-29); Chloride 104 mmol/L (96-108); Estimated Glomerular Filt Rate 59; Glucose Random 226 mg/dL (60-115); Potassium 4.2 mmol/L (3.3-5.1); Sodium 140 mmol/L (135-145)
[2022-08-04 07:13] VITALS: BP 126/69; PULSE 72; RESP 18; TEMP 36.3; O2SAT 94
[2022-08-04 07:28] LABS: Glucose, Whole Blood 193 mg/dL (60-115)
[2022-08-04] MEDS: Insulin Lispro 100 UNIT/ML 3 ML VIAL SUBCUT ×3 (08:02→16:33)
[2022-08-04] MEDS: Metoprolol Tartrate 100 MG TABLET PO (08:02)
[2022-08-04] MEDS: Aspirin Enteric Coated 81 MG TABLET.DR PO (08:02)
[2022-08-04] MEDS: amLODIPine Besylate 10 MG TABLET PO (08:02)
[2022-08-04] MEDS: 0.9 % Sodium Chloride Flush 3 ML SYRINGE IVFLUSH ×2 (08:04→16:33)
--- NOTE | 2022-08-04 09:07 | HO.POSTANES ---
Post Anesthesia Evaluation Post Anesthesia Evaluation Vital Signs: Vital Signs Temp Pulse Resp BP Pulse Ox O2 Del Method O2 Flow Rate 08/04/22 07:13 97.4 F 72 18 126/69 94 Nasal Cannula 2 08/04/22 03:44 97.6 F 53 17 133/70 99 Nasal Cannula 2.5 08/04/22 00:00 98.1 F 77 17 138/67 97 Nasal Cannula 2.5 08/03/22 21:33 98.0 F 75 16 119/75 96 Nasal Cannula 2 08/03/22 21:18 98.0 F 77 16 138/75 96 Nasal Cannula 2 08/03/22 21:13 80 16 137/76 96 Nasal Cannula 2 08/03/22 21:08 95 16 123/65 95 Nasal Cannula 2 Anesthesia: General LMA Mental Status: Awake Pain Control: Satisfactory Nausea/Vomiting: None Hydration: Adequate Anesthesia-Related Issues: No Anes. Related Issues
[2022-08-04 11:19] VITALS: BP 114/78; PULSE 65; RESP 20; TEMP 36.4; O2SAT 97
[2022-08-04 11:35] LABS: Glucose, Whole Blood 320 mg/dL (60-115)
--- NOTE | 2022-08-04 12:05 | P.DS_ITS ---
DS: Providers Provider Date of Service: 08/04/22 Date of admission: 08/02/22 01:14 Date of discharge: 08/04/22 Primary care physician: VANDA Lobato Consults: 08/02/22 01:27 Consult to Urology Routine Consulting Provider: Darwin Zuñiga Reason for consultation: Stone Has provider been notified: No DS: Diagnosis Discharge Diagnosis (1) Ureterolithiasis: Status: Acute (2) Hydronephrosis: Status: Acute (3) Renal insufficiency, mild: Status: Acute (4) Morbid obesity: Status: Acute DS: Summary Hospital Course Hospital Course: from admission History and Physical by hospitalist Frida Mclaughlin, 08/02/22: 58-year-old male with past medical history of morbid obesity, ZANDER, HLD, diabetes, HTN? presents to the hospital with complaints of right flank pain.? Patient reports that the symptoms started yesterday, the pain is localized to the right flank radiating down the groin.? He denies having any urinary symptoms with no dysuria frequency urgency.? The pain is 10/10, constant, no relieving or exacerbating factors.? Sharp stabbing pain.? Patient denies any fever, no chills, denies any chest pain, no shortness of breath no abdominal pain nausea or vomiting, no diarrhea constipation, no urinary symptoms and no lower extremity edema.? Denies any history of kidney stones ?on arrival to the ED patient hemodynamically stable no significant abnormal vitals Labs are significant for WBC count of 9.1, hemoglobin of 12.8, hematocrit of 39, UA positive for blood, creatinine of 1.41 with a baseline of around 1, BUN normal. ?abdomen pelvic CT shows mild right-sided hydronephrosis secondary to 2 mm calculus within the distal right ureter, diffusely decreased liver attenuation suggesting hepatic steatosis ?patient started on IV fluids and analgesics and will be admitted for further management 52-year-old male with past medical history of HTN, HLD, and diabetes who presented to the hospital with complaints of right flank pain and was found to have hydronephrosis and ureterolithiasis, for which he was admitted to the medical-surgical floor and underwent operative intervention on 08/03/22: -? cystoscopy,? right retrograde - ? right dilatation of ureteric orifice under fluoroscopy - ? right ureteroscopy - ? right stent placement He had mild renal insufficiency due to obstruction, which resolved after the procedure. He was discharged home with instructions to follow-up with Primary Care and Urology. Time Spent with Patient Time attestation: Total time spent providing and/or coordinating discharge services: Discharge coordination time: Greater than 30 minutes Quality: Safe Use of Opioids Does Pt have an Active Cancer Diagnosis on the Problem List?: No Quality: Stroke Does the patient have a stroke diagnosis?: No Physical Exam Vital Signs: Vital Signs: Last Vital Signs Temp 97.6 F 08/04/22 11:19 Pulse 65 08/04/22 11:19 Resp 20 08/04/22 11:19 BP 114/78 08/04/22 11:19 Pulse Ox 97 08/04/22 11:19 O2 Del Method 08/04/22 11:19 O2 Flow Rate 2 08/04/22 07:13 BMI result Body Mass Index 45.1 Gen: in no acute distress HEENT: sclera anicteric, moist mucus membranes Neck: supple Lungs: clear to auscultation bilaterally Heart: regular rate and rhythm, no murmurs Abd: soft, non-tender, non-distended, morbid obesity Ext: no edema Skin: warm/well-perfused Neuro: alert and oriented x3, no focal findings Psych: appropriate affect DS: Data Data Completed and Pending Pending studies at discharge: Laboratory Results WBC 9.1 X10*3/uL (4.8-10.8) 08/02/22 04:17 RBC 4.51 X10*6/uL (4.60-5.80) L 08/02/22 04:17 Hgb 12.8 g/dl (14.0-18.0) L 08/02/22 04:17 Hct 39.0 % (42.0-52.0) L 08/02/22 04:17 MCV 86.5 fL (80.0-98.0) 08/02/22 04:17 MCH 28.4 pg (27.0-33.0) 08/02/22 04:17 MCHC 32.8 g/dl (31.0-36.0) 08/02/22 04:17 RDW 13.5 % (11.0-16.0) 08/02/22 04:17 Plt Count 252 X10*3/uL (160-400) 08/02/22 04:17 MPV 10.2 fL (9.4-12.4) 08/02/22 04:17 Immature Gran % (Auto) 0.9 % (0.0-0.4) H 08/02/22 04:17 Neut % (Auto) 72.7 % (45-73) 08/02/22 04:17 Lymph % (Auto) 16.7 % (20-40) L 08/02/22 04:17 [place] % (Auto) 8.7 % (2-11) 08/02/22 04:17 Eos % (Auto) 0.7 % (0-4) 08/02/22 04:17 Baso % (Auto) 0.3 % (0-2) 08/02/22 04:17 Lymph # (Auto) 1.5 X10*3/uL (1.2-4.9) 08/02/22 04:17 [place] # (Auto) 0.8 X10*3/uL (0.1-1.2) 08/02/22 04:17 Eos # (Auto) 0.1 X10*3/uL (0.0-0.4) 08/02/22 04:17 Baso # (Auto) 0.0 X10*3/uL (0.0-0.2) 08/02/22 04:17 Abs Immat Gran (auto) 0.08 X10*3/uL (0.00-0.03) H 08/02/22 04:17 Absolute Neuts (auto) 6.6 x10*3/uL (2.0-8.3) 08/02/22 04:17 Absolute Nucleated RBC 0.000 X10*3/uL (0.0-0.012) 08/02/22 04:17 Nucleated RBC % (auto) 0.0 /100WBC (0.0-0.2) 08/02/22 04:17 Sodium 140 mmol/L (135-145) 08/04/22 05:20 Potassium 4.2 mmol/L (3.3-5.1) 08/04/22 05:20 Chloride 104 mmol/L (96-108) 08/04/22 05:20 Carbon Dioxide 22 mmol/L (22-29) 08/04/22 05:20 Anion Gap 18 (12-20) 08/04/22 05:20 BUN 16 mg/dL (9-16) 08/04/22 05:20 Creatinine 1.28 mg/dL (0.5-1.4) 08/04/22 05:20 Estim Creat Clear Calc 85.0 08/04/22 05:20 Estimated GFR 59 08/04/22 05:20 POC Glucose 320 mg/dL (60-115) H 08/04/22 11:22 Random Glucose 226 mg/dL (60-115) H 08/04/22 05:20 Calcium 8.1 mg/dL (8.4-10.2) L 08/04/22 05:20 Total Bilirubin 0.9 mg/dL (0.0-1.0) 08/02/22 01:49 Direct Bilirubin 0.4 mg/dL (0.0-0.5) 08/01/22 14:29 AST 19 U/L (5-37) 08/02/22 01:49 ALT 22 U/L (0-40) 08/02/22 01:49 Alkaline Phosphatase 136 U/L (39-117) H 08/02/22 01:49 Total Protein 6.6 g/dL (6.5-8.0) 08/02/22 01:49 Albumin 4.2 g/dL (3.5-5.0) 08/02/22 01:49 Lipase 22 U/L (8-78) 08/01/22 14:29 Urine Color Yellow 08/01/22 14:29 Urine Appearance Clear 08/01/22 14:29 Urine pH 6.0 (5.0-9.0) 08/01/22 14:29 Ur Specific Reading 1.015 (1.005-1.025) 08/01/22 14:29 Urine Protein 30 (1+) mg/dL (Neg-Trace) H 08/01/22 14:29 Urine Glucose (UA) >=1000 mg/dL (Negative) H 08/01/22 14:29 Urine Ketones 15 mg/dL (Negative) 08/01/22 14:29 Urine Blood Large (3+) (Negative) H 08/01/22 14:29 Urine Nitrite Negative (Negative) 08/01/22 14:29 Ur Leukocyte Esterase Negative (Negative) 08/01/22 14:29 Urine RBC >20 /HPF (0-2) H 08/01/22 14:29 Urine WBC 0-5 /HPF (0-5) 08/01/22 14:29 Ur Squamous Epith Cells 0-2 /HPF (0-2) 08/01/22 14:29 Urine Bacteria None Seen (None Seen) 08/01/22 14:29 Hyaline Casts 0-2 /LPF (0-2) 08/01/22 14:29 COVID-19 ([facility]AL[facility]) Negative (Negative) 08/02/22 04:18 COVID-19 Clin Com See Note 08/02/22 04:18 Impressions Abdomen Ultrasound 08/01/22 15:23 IMPRESSION: 1. Diffusely increased hepatic echotexture consistent with steatosis. 2. Normal gallbladder. No sonographic evidence of cholelithiasis or acute cholecystitis. 3. No biliary ductal dilation. 4. Slight fullness of the right renal pelvis versus minimal right hydronephrosis. Abdomen/Pelvis CT 08/01/22 16:41 IMPRESSION: -Mild right-sided hydronephrosis secondary to a 2 mm calculus within the distal right ureter. -Diffusely decreased liver attenuation suggesting hepatic steatosis. Correlation with liver enzymes recommended. Fleischner guidelines were followed. Discharge Plan Discharge Patient Disposition: Home, Self-Care Discharge Diagnosis: ureterolithiasis with hydronephrosis Referrals: Darwin Zuñiga MD [Physician] - 2 Weeks Dhruv Frankel PA-C [Physician Linen Room Houseperson] - 2 Weeks Physician,Faustina J [Primary Care Provider] - 1 Week Discharge Medications: New hydrocodone-acetaminophen 5-325 mg tablet 1 tab PO Q8H PRN (Reason: severe pain (scale score 7-10)) Qty: 9 0RF Rx Instructions: Partial Fill upon patient request. Continued amlodipine 10 mg tablet 10 mg PO DAILY 90 Days Qty: 90 1RF metformin 1,000 mg tablet 1,000 mg PO BID 90 Days Qty: 180 1RF metoprolol tartrate 100 mg tablet 100 mg PO BID 90 Days Qty: 180 0RF aspirin 81 mg tablet,delayed release (DR/EC) 81 mg PO DAILY 90 Days Qty: 90 1RF simvastatin 20 mg tablet 20 mg PO BEDTIME 90 Days Qty: 90 1RF (DME) FreeStyle Test Strip See Rx Instructions .ROUTE .MEDSUPPLY Qty: 100 0RF Rx Instructions: As directed (DME) lancets [FreeStyle Lancets] 28 gauge misc See Rx Instructions .ROUTE .MEDSUPPLY Qty: 100 0RF Rx Instructions: As directed (DME) comp.stocking,thigh,long,x-lrg Misc See Rx Instructions .ROUTE .MEDSUPPLY Qty: 2 0RF Rx Instructions: As directed Discharge Orders: Discharge Order (Routine); Ordered 08/04/22 Ordered By: Maria Fernanda Baires Stand Alone Forms: Patient Portal Discharge page Care Plan Goals: treatment and prevention of urinary tract stones Health Concerns: ureterolithiasis with hydronephrosis Plan of Treatment: procedure done 08/03/22 take acetaminophen or ibuprofen for mild-moderate pain, hydrocodone- acetaminophen for severe pain drink plenty of fluids Please follow up with your primary care doctor within 2 weeks. Return to the hospital if you experience recurrent or worsening symptoms. Follow up with urologist Darwin Zuñiga in 2 weeks. Assessment: See Discharge Summary.
--- NOTE | 2022-08-04 13:53 | MHC.CM.PN ---
HOME - SELF CARE RN AWARE OF PLAN
[2022-08-04 15:18] VITALS: BP 125/60; PULSE 70; RESP 18; TEMP 36.9; O2SAT 96
[2022-08-04 15:29] LABS: Glucose, Whole Blood 317 mg/dL (60-115)
== END 2022-08-04 17:39 | disposition home or self-care (01) | DRG 660 ==
LOC: HO.ED 08-02 02:05 → HO.EDOVER 08-02 03:04 → HO.S3 08-03 19:05
PROVIDERS: Hospitalist; Urology; Admitting Provider Internal Medicine; Emergency Provider Student in an Organized Health Care Education/Training Program; PCP Physician Assistant; Visit Provider Family Medicine
PROC: 0T768DZ Dilation of Right Ureter with Intraluminal Device, Via Natural or Artificial Opening Endoscopic (ICD-10-PCS; principal; 2022-08-03 15:20)
DX: N13.2 Hydronephrosis with renal and ureteral calculous obstruction (principal); Z68.42 Body mass index [BMI] 45.0-49.9, adult; N17.9 Acute kidney failure, unspecified; E11.9 Type 2 diabetes mellitus without complications; I10 Essential (primary) hypertension; E66.01 Morbid (severe) obesity due to excess calories; E78.5 Hyperlipidemia, unspecified; G47.33 Obstructive sleep apnea (adult) (pediatric); Z20.822 Contact with and (suspected) exposure to COVID-19; Z79.82 Long term (current) use of aspirin; Z79.84 Long term (current) use of oral hypoglycemic drugs; Z79.899 Other long term (current) drug therapy
CPT/HCPCS: 36415; 74176; 76705; 80048; 80053; 81001; 82248; 82947; 83690; 85025; 87635; 96361; 96374; 96375; 96376; 99285; C1758; C1769; C2617; J1650; J1885; J1956; J2250; J2270; J2405; J3010; Q9967

== ENCOUNTER 2022-08-13 10:52 | Outpatient (REF) | payer OTHER, SELFPAY ==
--- NOTE | ~2022-08-13 | XR_ITS ---
EXAMINATION: XR ABDOMEN KUB CLINICAL INDICATION: Right hydronephrosis secondary to small distal ureteral calculus. COMPARISON: CT abdomen and pelvis noncontrast 08/01/2022. TECHNIQUE: AP x3 views of the abdomen. FINDINGS: There is a right ureteral stent in position. Distal end is J shaped right-sided bladder near the trigone. No visible calculus on plain film. Bowel gas is normal. No obstruction or abnormal collections of gas. XR/XR KUB IMPRESSION: Right ureteral stent. No visible calculus on plain film.
== END 2022-08-13 10:53 | disposition home or self-care (01) ==
LOC: HO.XRAY 10:52
PROVIDERS: PCP Physician Assistant; Visit Provider Urology
DX: N20.0 Calculus of kidney (principal); T83.122A Displacement of indwelling ureteral stent, initial encounter
CPT/HCPCS: 52000; 74018

== ENCOUNTER 2022-08-14 13:30 | Day surgery (SDC) | payer OTHER, SELFPAY ==
--- NOTE | ~2022-08-14 | FL_ITS ---
EXAMINATION: Intraoperative fluoroscopy CLINICAL INFORMATION: Stent removal COMPARISON: [facility] 08/13/2022 TECHNIQUE: Intraoperative fluoroscopy was provided for use by Dr. Zuñiga. A total of 2 images were saved to PACS. A radiologist was not present during imaging. Today's dictation is only for administrative purposes to document intraoperative fluoroscopic usage. TOTAL FLUOROSCOPIC TIME: 3 seconds FL/FL guidance in OR FINDINGS~\^^ Intraoperative fluoroscopy provided for use by Dr. Zuñiga. Please see operative note for detailed findings.
--- NOTE | 2022-08-14 16:14 | P.CONAN_ITS ---
HPI - Anesthesia Eval Consult details Narrative: Ureter stone PENDING SALE TO [facility] Active Problems Active Problems: All Active Problems (Updated 08/13/22 @ 11:39 by Darwin Zuñiga MD) Ureteral stent displacement (Acute) ZANDER (obstructive sleep apnea) (Acute) Obese (Acute) DMII (diabetes mellitus, type 2) (Acute) Nephrolithiasis (Acute) Morbid obesity (Acute) Renal insufficiency, mild (Acute) Lower extremity edema (Acute) Past Medical History Medical History (Updated 08/13/22 @ 11:39 by Darwin Zuñiga MD) Colon cancer screening DMII (diabetes mellitus, type 2) HLD (hyperlipidemia) HTN (hypertension) Lower extremity edema ZANDER (obstructive sleep apnea) Family History Family History Father Medical history unknown Mother Hypertension Diabetes ZANDER (obstructive sleep apnea) Stroke Brother Diabetes Family history of problems with anesthesia: No Surgical History Surgical History History of tonsillectomy No pertinent past surgical history History of Problems with Anesthesia: No Social History Social History Household Members: Family Housing: House Do you presently have visiting nurse or other home services: No Patient Tobacco Use Status: Never used Tobacco service: No Current occupational status: employed Cognitive needs: No Hearing needs: No Vision needs: No Meds Allergies Allergy/AdvReac Type Severity Reaction Status Date / Time empagliflozin [Jardiance] AdvReac Unknown penile Verified 08/12/22 14:07 swelling Exam Exam Date and Time: August 14, 2022 1614 Airway Mallampati Class: II TM Dist: >3cm Neck ROM: Full Heart: RRR Lungs: CTA Assessment and Plan Assessment Anesthesia Assessment: Anesthesia Plan Discussed and Chart Reviewed Final Anesthetic Review Family History of Problems with Anesthesia: No History of Problems with Anesthesia: No NPO: Yes ASA Class: III and Emergency Final Preanesthetic Review: No Changes in Pt Med Stat, Meds/Allgs Chart Reviewed, Consent Obtained/Reviewed and Anes Risks/Benef Reviewed Patient Risk: Intermediate Procedure Risk: Low Anesthetic Plan Anesthetic Plan: GA Disposition: Standard PACU
[2022-08-14 16:20] VITALS: BP 148/80; PULSE 76; RESP 18; TEMP 37.3; O2SAT 96; BMI 53.8
--- NOTE | 2022-08-14 16:44 | MHC.SHP ---
Pre-Procedural Eval Section A Date of Service: 08/14/22 The patient is an INPATIENT: No Changes since office visit: No Cold of Flu in the past 2 weeks, No New Medical Problems, No Changes in Medication and No Patient answered all questions The History & Physical has been completed within 30 days and I have reviewed it.: Yes Section B Chief Complaint: Calculus of kidney Allergies: Allergies Allergy/AdvReac Type Severity Reaction Status Date / Time empagliflozin [Jardiance] AdvReac Unknown penile Verified 08/12/22 14:07 swelling Plan Diagnosis/Plan: Unchanged (Cystoscopy, right retrograde, right ureteroscopy with stent removal) I have reviewed the history and physical and performed a pertinent physical examination on my patient. No changes have occurred unless specified.
--- NOTE | 2022-08-14 18:28 | W.PM.OPN ---
Operative Note Operative Note Date of Service: 08/14/22 Narrative: PreOperative Diagnosis: Right retained ureteric stent Post Operative Diagnosis: Right retained ureteric stent Procedure: Cystoscopy, right retrograde, right ureteroscopy with removal of foreign body via basketing Surgeon: Dr Darwin Zuñiga Anesthesia: General Indications for procedure: Migration of right ureteric stent Procedure: After informed consent was verified the patient was brought to the operating room and placed in a supine position. Anesthesia was administered per protocol. Patient was placed in modified dorsal lithotomy position and prepped and draped in sterile fashion. Safety pause time-out was performed. Antibiotics being given. Cystoscopy was performed. Retrograde was performed. Stent was confirmed to have retracted in to be in the ureter. Rigid ureteroscopy was performed. The stent was left lassoed with a 2.4 Frisian ZeroTip basket and removed from the ureter. He tolerated procedure well was extubated in operating transferred stable condition to the recovery area Pathology: None Drains: Known
[2022-08-14 18:30] VITALS: BP 125/76; PULSE 82; RESP 20; TEMP 36.9; O2SAT 96
[2022-08-14 18:35] VITALS: BP 131/76; PULSE 78; RESP 20; O2SAT 97
[2022-08-14 18:45] VITALS: BP 142/78; PULSE 83; RESP 20; TEMP 36.8; O2SAT 97
[2022-08-18 07:42] LABS: Glucose, Whole Blood 188 mg/dL (60-115)
== END 2022-08-14 19:14 | disposition home or self-care (01) ==
PROVIDERS: PCP Physician Assistant; Visit Provider Urology
PROC: (CPT 52315; principal; 2022-08-14 17:20)
DX: T83.122A Displacement of indwelling ureteral stent, initial encounter (principal); Y73.2 Prosthetic and other implants, materials and accessory gastroenterology and urology devices associated with adverse incidents; Z96.0 Presence of urogenital implants; N20.0 Calculus of kidney; I10 Essential (primary) hypertension; E78.5 Hyperlipidemia, unspecified; G47.33 Obstructive sleep apnea (adult) (pediatric); E11.9 Type 2 diabetes mellitus without complications; Z88.8 Allergy status to other drugs, medicaments and biological substances
CPT/HCPCS: 52315; 82947; C1758; C1769; J1956; J3010

== ENCOUNTER 2022-10-29 15:59 | Outpatient (REF) | payer OTHER, SELFPAY ==
--- NOTE | ~2022-10-29 | US_ITS ---
EXAMINATION: US RETROPERITONEAL LIMITED (RENAL ONLY) CLINICAL INFORMATION: Calculus of kidney. COMPARISON: CT abdomen and pelvis 08/01/2022. Ultrasound abdomen limited 08/01/2022 and 02/21/2021. TECHNIQUE: Real-time imaging of the kidneys. FINDINGS: RIGHT KIDNEY: 13.8 x 5.1 x 6.4 cm (SAG x AP x TRV). The kidney is normal in size, contour, and echogenicity. Renal cortical thickness is normal. No focal parenchymal lesions or hydronephrosis. A 1 cm echogenic focus in the right upper pole without definite shadowing or twinkle artifact, unclear if this could reflect a stone or prominent medullary fat. There is no correlate on the recent prior CT. LEFT KIDNEY: 13.3 x 6.8 x 4.5 cm (SAG x AP x TRV). The kidney is normal in size, contour, and echogenicity. Renal cortical thickness is normal. No calculi or focal parenchymal lesions. No hydronephrosis. ADDITIONAL FINDINGS: 2 cm septated cyst in the spleen, likely benign. US/US renal BI IMPRESSION: A 1 cm echogenic focus in the right upper pole without definite shadowing or twinkle artifact, unclear if this could reflect a nonobstructing stone or prominent medullary fat. CT stone protocol could be confirmatory if warranted.
== END 2022-10-29 16:00 | disposition home or self-care (01) ==
LOC: HO.US 15:59
PROVIDERS: Visit Provider Urology
DX: N20.0 Calculus of kidney (principal)
CPT/HCPCS: 76775

== ENCOUNTER 2022-11-02 04:07 | Emergency (ER) | payer OTHER, SELFPAY ==
[2022-11-02 04:28] VITALS: BP 177/93; PULSE 70; RESP 20; TEMP 36.9; O2SAT 97; BMI 57.2
--- NOTE | 2022-11-02 04:47 | ED.URI ---
HPI - URI/Sore Throat General Chief Complaint: Upper Respiratory Symptoms Stated Complaint: cough Time Seen by Provider: 11/02/22 04:47 Source: patient Mode of arrival: ambulatory Limitations: no limitations History of Present Illness HPI Narrative: Patient comes to the emergency room complaining of 3 days of dry cough. Patient states that he is unable to sleep due to coughing fits. Patient denies any fever chills, no body aches, no UTI symptoms no abdominal pain, no vomiting or diarrhea. Patient states that he tried Mucinex and Robitussin without any relief. Related Data Previous Rx's Medication Instructions Recorded blood sugar diagnostic (FreeStyle #100 ea 09/18/20 Test strips) comp.stocking,thigh,long,x-lrg #2 ea 09/18/20 lancets 28 gauge (FreeStyle #100 ea 09/18/20 Lancets) amlodipine 10 mg tablet 10 mg PO DAILY 90 days #90 tabs 08/12/22 glipizide 5 mg tablet, extended 5 mg PO DAILY 60 days #60 tabs 08/12/22 release 24 hr metformin 1,000 mg tablet 1,000 mg PO BID 90 days #180 tabs 08/12/22 metoprolol tartrate 100 mg tablet 100 mg PO BID 90 days #180 tabs 08/12/22 simvastatin 20 mg tablet 20 mg PO BEDTIME 90 days #90 tabs 08/12/22 miscellaneous medical supply 1 ea miscellaneous .nightly 99 09/10/22 days #1 ea benzonatate 100 mg capsule 100 mg PO TID PRN cough #14 caps 11/02/22 oseltamivir 75 mg capsule (Tamiflu) 75 mg PO BID 5 days #10 caps 11/02/22 Allergies Allergy/AdvReac Type Severity Reaction Status Date / Time empagliflozin [Jardiance] AdvReac Unknown penile Verified 11/02/22 04:31 swelling Review of Systems Review of Systems: Constitutional : No Weight loss, No Fever, No Chills, No Night Sweats, No Fatigue, No Malaise ENT/Mouth : No Hearing loss, No Ear Pain, No Nasal Congestion, No Sinus Pain, No Hoarseness, No sore throat, No Rhinorrhea, No Swallowing Difficulty Eyes: No Eye Pain, No Swelling, No Redness, No Foreign Body, No Discharge, No Vision Changes Cardiovascular : No Chest Pain, No SOB, No Dyspnea on Exertion, No Orthopnea, No Edema, No Palpitations Respiratory : Complaining of dry Cough, No Sputum, No Wheezing, No Smoke Exposure, No Dyspnea Gastrointestinal : No Nausea, No Vomiting, No Diarrhea, No Constipation, No abdominal Pain, No Hematochezia, No Melena Genitourinary : no irregular bleeding, No Dysuria, No Urinary Frequency, No Hematuria, No Urinary Incontinence, No Urgency, No Flank Pain, No Urinary Flow Changes, No Hesitancy Musculoskeletal : No joint pain, No Myalgias, No Joint Swelling Skin : No Skin Lesions, No rash Neuro : No Weakness, No Numbness, No Paresthesias, No Loss of Consciousness, No Dizziness, No Headache Psych : No Anxiety/Panic, No Depression, No SI/HI/AH/VH, No Social Issues, Heme/Lymph: No Bruising, No Bleeding,No Lymphadenopathy Endocrine : No Polyuria, No Polydipsia, No Temperature Intolerance PMFSH Past Medical History Medical History Colon cancer screening DMII (diabetes mellitus, type 2) HLD (hyperlipidemia) HTN (hypertension) Lower extremity edema ZANDER (obstructive sleep apnea) Surgical History History of tonsillectomy No pertinent past surgical history Family History Family History Father Medical history unknown Mother Hypertension Diabetes ZANDER (obstructive sleep apnea) Stroke Brother Diabetes Social History Social History (Updated 09/10/22 @ 15:34 by Dhruv Frankel PA-C) Household Members: Family Housing: House Do you presently have visiting nurse or other home services: No Alcohol intake: never Patient Tobacco Use Status: Never used Tobacco Advance Directives: Yes Advance Directives on File: Yes Advance Directives Date on File: 08/05/22 service: No Current occupational status: employed Cognitive needs: No Hearing needs: No Vision needs: No Physical Exam Vital Signs: Vital Signs: Last Vital Signs Temp 98.4 F 11/02/22 04:28 Pulse 70 11/02/22 04:28 Resp 20 11/02/22 04:28 BP 177/93 H 11/02/22 04:28 Pulse Ox 97 11/02/22 04:28 O2 Del Method 12/26/22 04:28 BMI result Body Mass Index 57.2 Const: Other: Appearance: Alert. Oriented X3. No acute distress. Well-appearing Eyes: Pupils equal, round and reactive to light. ENT: Pharynx normal. Neck: Normal inspection. Neck supple. No lymph nodes noted. No crepitus CVS: Normal heart rate and rhythm. Pulses normal. Normal S1 and S2 Respiratory: No respiratory distress. Breath sounds normal. No Wheezing. No rales Abdomen: Soft and nontender. No rigidity. No distention. Skin: Skin warm and dry. Normal skin color. Normal skin turgor. Extremities: No lower extremity edema. No Lacerations. No Rash Neuro: Oriented X 3. No motor deficit. No sensory deficit. Moving all extremities. No slurred speech. CN 2 through 12 grossly intact Psych: calm, cooperative, normal affect Course Course Course Narrative: Patient's labs and chest x-ray pending. X-ray negative, patient tested positive for influenza. Discussed with patient that Tamiflu may or may not work after 3 days of symptoms. Patient decided to give the chance. Medical Decision Making Differential Diagnosis Differential Diagnoses: The differential diagnosis associated with the presentation includes (COVID, influenza, pneumonia, viral URI) Lab Data MDM Lab Attestation statement: I reviewed the patient's lab results. Labs: Lab Results 11/02/22 11/02/22 Range/Units 04:45 04:45 COVID-19 (MAGDALENO) Negative (Negative) COVID-19 Clin Com See Note Influenza Type A (JOSIAH) Positive A (Negative) Influenza Type B (JOSIAH) Negative (Negative) Influenza A & B Note See Note Radiology Impression Discussion of test interpretation with radiology: I have reviewed the radiologist's reading. Radiologist Impression: FINDINGS: Bowel gas pattern is nonobstructive. Moderate amount of stool is present. Clips are present in the right lower quadrant. Small calcification in the left pelvis is favored to represent a phlebolith. Included lung bases are well-aerated. No acute osseous findings are seen. XR/XR KUB IMPRESSION: Moderate volume of stool. Nonobstructive bowel gas pattern. Discharge Plan Discharge Clinical Impression: Influenza A Patient Disposition: Home, Self-Care Instructions: Influenza (ED) Additional Instructions: Please follow-up with your primary care physician tomorrow. If you have any worsening or new symptoms, please return to the emergency room or call 911 Prescriptions: New oseltamivir [Tamiflu] 75 mg capsule 75 mg PO BID 5 Days Qty: 10 0RF benzonatate 100 mg capsule 100 mg PO TID PRN (Reason: cough) Qty: 14 0RF No Action (DME) FreeStyle Test Strip See Rx Instructions .ROUTE .MEDSUPPLY Qty: 100 0RF Rx Instructions: As directed (DME) lancets [FreeStyle Lancets] 28 gauge misc See Rx Instructions .ROUTE .MEDSUPPLY Qty: 100 0RF Rx Instructions: As directed (DME) comp.stocking,thigh,long,x-lrg Misc See Rx Instructions .ROUTE .MEDSUPPLY Qty: 2 0RF Rx Instructions: As directed [facility] miscellaneous .nightly 99 Days Qty: 1 0RF glipizide 5 mg tablet extended release 24hr 5 mg PO DAILY 60 Days Qty: 60 1RF amlodipine 10 mg tablet 10 mg PO DAILY 90 Days Qty: 90 1RF metformin 1,000 mg tablet 1,000 mg PO BID 90 Days Qty: 180 1RF simvastatin 20 mg tablet 20 mg PO BEDTIME 90 Days Qty: 90 1RF metoprolol tartrate 100 mg tablet 100 mg PO BID 90 Days Qty: 180 1RF naproxen 500 mg tablet 500 mg PO ONCE Qty: 1 0RF nitrofurantoin monohyd/m-cryst 100 mg capsule 100 mg PO ONCE Qty: 1 0RF lidocaine HCl 2 % jelly in applicator 10 ml intra-urethral ONCE Qty: 10 0RF Stand Alone Forms: Work/School Release
[2022-11-02 05:06] LABS: COVID-19 Test Negative (Negative); IDNOW Serial# 16C4AD1C; IDNOW Serial# BCCEAD1C; Influenza A Positive (Negative); Influenza B2 Negative (Negative)
== END 2022-11-02 05:56 | disposition home or self-care (01) ==
PROVIDERS: Emergency Provider Emergency Medicine; PCP Physician Assistant
DX: J11.1 Influenza due to unidentified influenza virus with other respiratory manifestations (principal); Z20.822 Contact with and (suspected) exposure to COVID-19; E11.9 Type 2 diabetes mellitus without complications; I10 Essential (primary) hypertension; E78.5 Hyperlipidemia, unspecified; E66.01 Morbid (severe) obesity due to excess calories; Z68.43 Body mass index [BMI] 50.0-59.9, adult; Z79.84 Long term (current) use of oral hypoglycemic drugs; Z79.02 Long term (current) use of antithrombotics/antiplatelets; Z79.899 Other long term (current) drug therapy
CPT/HCPCS: 71045; 87502; 87635; 99282; 99283

== ENCOUNTER 2023-02-08 03:00 | Emergency (ER) | payer OTHER, SELFPAY ==
[2023-02-08 03:01] VITALS: BP 181/85; PULSE 83; RESP 22; TEMP 36.9; O2SAT 96; BMI 58.1
[2023-02-08 03:27] LABS: IDNOW Serial# 08D9AD1C; Strep A Nucleic Acid Negative (Negative)
--- NOTE | 2023-02-08 04:46 | ED.URI ---
HPI - URI/Sore Throat General Chief Complaint: Upper Respiratory Symptoms Stated Complaint: cough Time Seen by Provider: 02/08/23 04:46 Source: patient Mode of arrival: ambulatory Limitations: no limitations History of Present Illness HPI Narrative: Patient history of sleep apnea hypertension hyperlipidemia comes here for 3- 4 days of cough with wheezing specially the nighttime with mostly a dry cough nasal congestion feels throat is sore no fever no chills no other family member sick Related Data Previous Rx's Medication Instructions Recorded blood sugar diagnostic (FreeStyle #100 ea 09/18/20 Test strips) comp.stocking,thigh,long,x-lrg #2 ea 09/18/20 lancets 28 gauge (FreeStyle #100 ea 09/18/20 Lancets) miscellaneous medical supply 1 ea miscellaneous .nightly 99 09/10/22 days #1 ea benzonatate 100 mg capsule 100 mg PO TID PRN cough #14 caps 11/02/22 oseltamivir 75 mg capsule (Tamiflu) 75 mg PO BID 5 days #10 caps 11/02/22 glipizide 5 mg tablet, extended 5 mg PO DAILY 60 days #60 tabs 12/29/22 release 24 hr amlodipine 10 mg tablet 10 mg PO DAILY 90 days #90 tabs 01/30/23 metformin 1,000 mg tablet 1,000 mg PO BID 90 days #180 tabs 01/30/23 metoprolol tartrate 100 mg tablet 100 mg PO BID 90 days #180 tabs 01/30/23 simvastatin 20 mg tablet 20 mg PO BEDTIME 90 days #90 tabs 01/30/23 albuterol sulfate 90 mcg/actuation 2 puff inhalation Q4-6H PRN 02/08/23 aerosol inhaler (ProAir HFA) shortness of breath or wheezing #8.5 grams amoxicillin 875 mg-potassium 1 tab PO BID #20 tabs 02/08/23 clavulanate 125 mg tablet benzonatate 200 mg capsule 200 mg PO TID PRN cough #30 caps 02/08/23 prednisone 20 mg tablet 40 mg PO DAILY #10 tabs 02/08/23 Allergies Allergy/AdvReac Type Severity Reaction Status Date / Time empagliflozin [Jardiance] AdvReac Unknown penile Verified 02/08/23 03:08 swelling Review of Systems Review of Systems: Yes all other systems are reviewed and are negative PMFSH Past Medical History Medical History Colon cancer screening DMII (diabetes mellitus, type 2) HLD (hyperlipidemia) HTN (hypertension) Lower extremity edema ZANDER (obstructive sleep apnea) Surgical History History of tonsillectomy No pertinent past surgical history Family History Family History Father Medical history unknown Mother Hypertension Diabetes ZANDER (obstructive sleep apnea) Stroke Brother Diabetes Social History Social History Household Members: Family Housing: House Do you presently have visiting nurse or other home services: No Alcohol intake: never Patient Tobacco Use Status: Never used Tobacco Smoked in Last 30 Days: No Use of substances other than those prescribed or required for medical reasons: No Advance Directives: Yes Advance Directives on File: Yes Advance Directives Date on File: 08/05/22 service: No Current occupational status: employed Cognitive needs: No Hearing needs: No Vision needs: No Physical Exam Vital Signs: Vital Signs: Last Vital Signs Temp 97.9 F 02/08/23 06:16 Pulse 92 02/08/23 06:16 Resp 21 H 02/08/23 06:16 BP 148/75 H 02/08/23 06:16 Pulse Ox 97 02/08/23 06:20 O2 Del Method Room Air 02/08/23 06:20 BMI result Body Mass Index 58.1 Appearance: Alert. Oriented X3. No acute distress. ENT: Pharynx erythematous postnasal drip++. Oral Mucosa moist Neck: Normal inspection. Neck supple. CVS: Normal heart rate and rhythm. Pulses normal. Respiratory: No respiratory distress. Equal air entry bilateral, bilat wheezing Abdomen: Soft and nontender. Bowel sounds are present, no mass palpable, no CVA tenderness Skin: Skin warm and dry. Normal skin color. Normal skin turgor. Extremities: No lower extremity edema. No calf tenderness Neuro: Oriented X 3. No motor deficit. Medications Administered Discontinued Medications Generic Name Dose Route Start Last Admin Trade Name Freq PRN Reason Stop Dose Admin Amoxicillin/Clavulanate Potassium 875 mg 02/08/23 04:50 02/08/23 05:09 Amoxicillin/Potassium Clav 875 Mg Tablet PO 02/08/23 04:51 875 mg ONCE ONE Administration Albuterol Sulfate 5 mg/ 0 mg 02/08/23 04:50 02/08/23 05:04 Ipratropium [place] 0.5 mg INHALE 02/08/23 04:51 1 each ONCE ONE Administration Dexamethasone 10 mg 02/08/23 04:50 02/08/23 05:09 Dexamethasone 2 Mg Tablet PO 02/08/23 04:51 10 mg ONCE ONE Administration Medical Decision Making Medical Decision Making MDM Narrative: Patient has acute bronchitis improved after nebulizing treatment discharge patient home on prednisone / inhaler and antibiotic Lab Data [facility] Lab Attestation statement: I reviewed the patient's lab results. Labs: Lab Results 02/08/23 Range/Units 03:10 S. pyogenes GrpA JOSIAH Negative (Negative) Discharge Plan Discharge Clinical Impression: Acute bronchitis Patient Disposition: Home, Self-Care Instructions: Acute Bronchitis (ED) Additional Instructions: Take inhaler cough medicine and prednisone , antibiotic as prescribed Follow-up with PCP as needed if not better Prescriptions: New benzonatate 200 mg capsule 200 mg PO TID PRN (Reason: cough) Qty: 30 0RF amoxicillin-pot clavulanate 875-125 mg tablet 1 tab PO BID Qty: 20 0RF prednisone 20 mg tablet 40 mg PO DAILY Qty: 10 0RF albuterol sulfate [ProAir HFA] 90 mcg/actuation HFA aerosol inhaler 2 puff inhalation Q4-6H PRN (Reason: shortness of breath or wheezing) Qty: 8.5 0RF No Action glipizide 5 mg tablet extended release 24hr 5 mg PO DAILY 60 Days Qty: 60 1RF metoprolol tartrate 100 mg tablet 100 mg PO BID 90 Days Qty: 180 1RF simvastatin 20 mg tablet 20 mg PO BEDTIME 90 Days Qty: 90 1RF amlodipine 10 mg tablet 10 mg PO DAILY 90 Days Qty: 90 1RF metformin 1,000 mg tablet 1,000 mg PO BID 90 Days Qty: 180 1RF oseltamivir [Tamiflu] 75 mg capsule 75 mg PO BID 5 Days Qty: 10 0RF benzonatate 100 mg capsule 100 mg PO TID PRN (Reason: cough) Qty: 14 0RF (DME) FreeStyle Test Strip See Rx Instructions .ROUTE .MEDSUPPLY Qty: 100 0RF Rx Instructions: As directed (DME) lancets [FreeStyle Lancets] 28 gauge misc See Rx Instructions .ROUTE .MEDSUPPLY Qty: 100 0RF Rx Instructions: As directed (DME) comp.stocking,thigh,long,x-lrg Misc See Rx Instructions .ROUTE .MEDSUPPLY Qty: 2 0RF Rx Instructions: As directed [facility] miscellaneous .nightly 99 Days Qty: 1 0RF naproxen 500 mg tablet 500 mg PO ONCE Qty: 1 0RF nitrofurantoin monohyd/m-cryst 100 mg capsule 100 mg PO ONCE Qty: 1 0RF lidocaine HCl 2 % jelly in applicator 10 ml intra-urethral ONCE Qty: 10 0RF Stand Alone Forms: Work/School Release Interventions: ED Discharge Assessment Last Done: 02/08/23 06:14 Discharge Date/Time: 02/08/23 06:14
[2023-02-08] MEDS: dexAMETHasone 2 MG TABLET 10 MG PO (05:09)
[2023-02-08] MEDS: Amoxicillin/Potassium Clav 875 MG TABLET PO (05:09)
--- NOTE | 2023-02-08 05:13 | PC.NURSE ---
pt currently receiving DuoNeb txmt from [facility] a[facility] no respiratory distress able to speak in full sentences
--- NOTE | 2023-02-08 05:27 | PC.NURSE ---
pt c/o sore thrt past 2 days states it is from frequent cough that also began two days ago, denies fever/n/v
[2023-02-08 06:16] VITALS: BP 148/75; PULSE 92; RESP 21; TEMP 36.6; O2SAT 97
[2023-02-08 06:20] VITALS: O2SAT 97
--- NOTE | 2023-02-08 06:20 | PC.NURSE ---
Discharge instructions given and explained to patient No apparent distress, no resp distress, no sob, can speak in full sentences Patient ambulates safely and independently All of patient's questions answered
== END 2023-02-08 06:14 | disposition home or self-care (01) ==
PROVIDERS: Emergency Provider Internal Medicine; PCP Physician Assistant
DX: J20.9 Acute bronchitis, unspecified (principal); R05.9 Cough, unspecified; Z20.822 Contact with and (suspected) exposure to COVID-19; Z20.828 Contact with and (suspected) exposure to other viral communicable diseases; Z79.899 Other long term (current) drug therapy
CPT/HCPCS: 36415; 87651; 99284; J8540

== ENCOUNTER 2023-04-05 04:49 | Emergency (ER) | payer OTHER, SELFPAY ==
[2023-04-05 05:07] VITALS: BP 172/88; PULSE 75; RESP 20; TEMP 36.6; O2SAT 97; BMI 57.3
[2023-04-05 05:34] VITALS: BP 156/78; PULSE 78; RESP 20; TEMP 36.8; O2SAT 97
--- NOTE | 2023-04-05 05:52 | PC.NURSE ---
this rn assumed care of pt @ 2372. pt reporting 8/10 ear pain. pt states more comfortable sitting in chair instead of stretcher. pt asked to change into hospital gown from the waist up. pt awaiting to be seen by ed provider
--- NOTE | 2023-04-05 06:12 | ED_ITS ---
HPI - Ear Problem General Chief complaint: Ear Problems Stated complaint: ear pain Time Seen by Provider: 04/05/23 06:02 Source: patient Mode of arrival: ambulatory History of Present Illness HPI Narrative: 53-year-old male presents with atraumatic right ear pain that started last night and has not been associated with any fever, chills, difficulty with opening the mouth, hearing changes, tooth pain, or drainage. Related Data Previous Rx's Medication Instructions Recorded blood sugar diagnostic (FreeStyle #100 ea 09/18/20 Test strips) comp.stocking,thigh,long,x-lrg #2 ea 09/18/20 lancets 28 gauge (FreeStyle #100 ea 09/18/20 Lancets) miscellaneous medical supply 1 ea miscellaneous .nightly 99 09/10/22 days #1 ea amlodipine 10 mg tablet 10 mg PO DAILY 90 days #90 tabs 03/15/23 glipizide 5 mg tablet, extended 5 mg PO DAILY 60 days #60 tabs 03/15/23 release 24 hr metformin 1,000 mg tablet 1,000 mg PO BID 90 days #180 tabs 03/15/23 metoprolol tartrate 100 mg tablet 100 mg PO BID 90 days #180 tabs 03/15/23 mupirocin 2 % topical ointment 1 appl topical BID 30 days #22 03/15/23 grams simvastatin 20 mg tablet 20 mg PO BEDTIME 90 days #90 tabs 03/15/23 Allergies Allergy/AdvReac Type Severity Reaction Status Date / Time empagliflozin [Jardiance] AdvReac Unknown penile Verified 03/15/23 15:54 swelling Review of Systems Review of Systems: Pertinent positives and negatives as stated in HPI PMFSH Past Medical History Source: nursing notes reviewed Medical History Colon cancer screening DMII (diabetes mellitus, type 2) HLD (hyperlipidemia) HTN (hypertension) Lower extremity edema ZANDER (obstructive sleep apnea) Surgical History History of extraction of renal calculus History of tonsillectomy Family History Family History Father Medical history unknown Mother Hypertension Diabetes ZANDER (obstructive sleep apnea) Stroke Brother Diabetes Social History Social History Household Members: Family Housing: House Do you presently have visiting nurse or other home services: No Alcohol intake: never Patient Tobacco Use Status: Never used Tobacco Smoked in Last 30 Days: No e-Cigarette/Vaping Use: Never Used Second Hand Smoke Exposure: No Use of substances other than those prescribed or required for medical reasons: No Advance Directives: Yes Advance Directives on File: Yes Advance Directives Date on File: 08/05/22 service: No Current occupational status: employed Current occupational exposures/hazards: No Cognitive needs: No Hearing needs: No Vision needs: No Physical Exam Vital Signs: Vital Signs: Last Vital Signs Temp 98.3 F 04/05/23 05:34 Pulse 78 04/05/23 05:34 Resp 20 04/05/23 05:34 BP 156/78 H 04/05/23 05:34 Pulse Ox 97 04/05/23 05:34 O2 Del Method Room Air 04/05/23 05:34 BMI result Body Mass Index 57.3 VITAL SIGNS: Reviewed. GENERAL: Elevated BMI, Well developed, well nourished, in no acute distress. HEAD: Normocephalic/atraumatic EYES: PERRLA, EOMI EARS: LEFT- Ext canals without abnormality, TMs non-bulging and non- erythematous; RIGHT-Ext canals with trace erythema, TMs non-bulging and non- erythematous, well-defined bones, no erythema of the TM, no tragus pain NOSE: Nares patent bilateral OROPHARYNX: no oral lesions noted, posterior pharynx clear and non-erythematous without noted tonsillar enlargement/erythema/exudates, no dental caries NECK: Supple, no adenopathy LUNGS: Normal breath sounds. No adventitious sounds or accessory muscle use. CARDIOVASCULAR: Regular rate and rhythm without noted murmurs ABDOMEN: Soft, non-tender, non-distended with bowel sounds. MUSCULOSKELETAL: No tenderness, deformities, or effusions noted on gross inspection. EXTREMITIES: No cyanosis, clubbing or edema. SKIN: Inspection of the skin reveals no rashes NEUROLOGIC: Alert and oriented x 4. Strength and sensation to light touch were grossly intact x 4. Medical Decision Making Medical Decision Making MDM Narrative: 53-year-old male with history and clinical presentation of atraumatic right ear pain, the year is very clean no abnormalities noted other than trace erythema of the external canal that would not prompt me to treat with any antibiotics. In addition, patient's pain has resolved with [id number] Aleve. He is otherwise discharged home in stable condition with instructions to follow-up with his primary care provider. Differential Diagnosis Please see the discussion above Discharge Plan Discharge Clinical Impression: Ear pain, right Patient Disposition: Home, Self-Care Instructions: Earache (ED) Additional Instructions: 1. Resume all home medications as prescribed. Continue to treat your pain with [id number] Tylenol/ibuprofen. 2. Follow-up with primary care provider Wednesday. Return to the ER for any worsening symptoms. Prescriptions: No Action (DME) FreeStyle Test Strip See Rx Instructions .ROUTE .MEDSUPPLY Qty: 100 0RF Rx Instructions: As directed (DME) lancets [FreeStyle Lancets] 28 gauge misc See Rx Instructions .ROUTE .MEDSUPPLY Qty: 100 0RF Rx Instructions: As directed (DME) comp.stocking,thigh,long,x-lrg Misc See Rx Instructions .ROUTE .MEDSUPPLY Qty: 2 0RF Rx Instructions: As directed miscellaneous medical supply Misc 1 ea miscellaneous .nightly 99 Days Qty: 1 0RF amlodipine 10 mg tablet 10 mg PO DAILY 90 Days Qty: 90 1RF glipizide 5 mg tablet extended release 24hr 5 mg PO DAILY 60 Days Qty: 60 1RF metformin 1,000 mg tablet 1,000 mg PO BID 90 Days Qty: 180 1RF metoprolol tartrate 100 mg tablet 100 mg PO BID 90 Days Qty: 180 1RF simvastatin 20 mg tablet 20 mg PO BEDTIME 90 Days Qty: 90 1RF mupirocin 2 % ointment 1 appl topical BID 30 Days Qty: 22 0RF lidocaine HCl 2 % jelly in applicator 10 ml intra-urethral ONCE Qty: 10 0RF Referrals: Dhruv Frankel PA-C [Primary Care Provider] -
== END 2023-04-05 06:17 | disposition home or self-care (01) ==
PROVIDERS: Emergency Provider Student in an Organized Health Care Education/Training Program; PCP Physician Assistant
DX: H92.01 Otalgia, right ear (principal)
CPT/HCPCS: 99282; 99284

== ENCOUNTER 2023-06-26 12:34 | Inpatient (IN) | payer OTHER, SELFPAY ==
--- NOTE | ~2023-06-26 | CT_ITS ---
EXAMINATION: CT ANGIOGRAM OF THE CHEST WITH AND WITHOUT CONTRAST (CT PULMONARY ANGIOGRAM FOR PE) CLINICAL INFORMATION: Reason for Exam +DVT COMPARISON: None available. TECHNIQUE: Prior to contrast administration, noncontrast localization images were obtained. Subsequently, multidetector volumetric imaging was performed from the thoracic inlet to below the diaphragms following the administration of 75 mL Omnipaque 350 intravenous contrast. No contrast reaction reported Sagittal, coronal, and MIP oblique sagittal reformatted images were obtained on the CT workstation, uploaded to PACS, and reviewed. This CT examination was performed using dose optimization techniques as appropriate, variously including the following: *Automated exposure control *Adjustment of mA and/or kV according to patient size (this includes techniques or standardized protocols for targeted exams where dose is matched to indication/reason for exam; i.e. extremities or head) *Use of iterative reconstruction technique Total exam dose-length product 560 mGy-cm FINDINGS: QUALITY OF STUDY/CONTRAST BOLUS: Satisfactory. PULMONARY ARTERIES: There are multiple intraluminal hypodense filling defects identified within the distal part of the right main pulmonary artery as well as right upper and middle lobar lobar segmental and the right lower lobar and left lower lobar as well as multiple segmental pulmonary arteries at both lower lobes. No evidence of any right ventricular strain or pulmonary hypertension. THORACIC AORTA: No aneurysm. LUNG: No focal consolidation, nodules or masses. PLEURA: No pleural effusion or pneumothorax. MEDIASTINUM: Normal heart size. No pericardial effusion. No hilar or mediastinal lymphadenopathy. No evidence of septal bowing or right heart strain. CORONARY ARTERY CALCIFICATION: None visualized on this study. CHEST WALL/AXILLA: No axillary or internal mammary lymphadenopathy. Asymmetric cutaneous, subcutaneous soft tissue opacity noted measuring 2.2 cm in the region of the left breast (121:7), may represent gynecomastia versus cutaneous, subcutaneous pathology. Clinical correlation is recommended. OSSEOUS STRUCTURES: No acute or suspicious osseous abnormality. UPPER ABDOMEN: Remarkable for diffuse hypodensity within the visualized liver, likely represent hepatic steatosis. No reflux of contrast into the hepatic veins to suggest elevated right heart pressures. CT/CT angio chest PE protocol IMPRESSION: 1. Abnormal study showing features consistent with bilateral lower lobar and right upper and middle lobar and segmental pulmonary thromboembolism without evidence of any right ventricular strain or pulmonary arterial hypertension. 2. Nonspecific cutaneous, subcutaneous soft tissue density measuring 2.2 cm within the left breast, may represent cutaneous, subcutaneous pathology versus gynecomastia. Please correlate clinically. 3. Diffuse hepatic steatosis. VTE: Positive. This critical result was discussed with Dr. Paz at 8:41 PM on 06/26/2023 and it was ascertained that the content and urgency of the report was understood at the time of direct communication.
--- NOTE | ~2023-06-26 | XR_ITS ---
EXAMINATION: XR ANKLE, RIGHT CLINICAL INFORMATION: Pain COMPARISON: None available. TECHNIQUE: AP, lateral, and mortise views of the right ankle. FINDINGS: There is no fracture or dislocation seen. Ankle mortise is unremarkable. There is soft tissue swelling suggestive for edema of the right lower extremity. XR/XR ankle RT min 3V IMPRESSION: Soft tissue edema
--- NOTE | ~2023-06-26 | US_ITS ---
EXAMINATION: US VENOUS ULTRASOUND WITH DOPPLER LOWER EXTREMITY, RIGHT CLINICAL INFORMATION: Swelling and redness COMPARISON: None available. TECHNIQUE: Ultrasound of the deep veins is performed from the hip to the calf with compression sonography and color and pulse Doppler assessment. Spectral analysis with color-flow imaging is performed. FINDINGS: There is echogenic occlusive thrombus in the upper femoral vein extending to the popliteal vein. The common femoral vein, profunda branch, and greater saphenous vein appear patent with normal waveform. Calf veins are not visualized secondary to edema of the calf and body habitus. US/US venous duplex LE RT IMPRESSION: Occlusive thrombus in the upper femoral vein extending to the popliteal vein. This critical result was discussed with VANDA Mendenhall at 3:20 PM on 06/26/2023 and it was ascertained that the content and urgency of the report was understood at the time of direct communication.
[2023-06-26 12:41] VITALS: BP 150/87; PULSE 82; RESP 16; TEMP 37.2; O2SAT 96; BMI 59.5
--- NOTE | 2023-06-26 12:42 | ED_ITS ---
HPI - Extremity Injury (Lower) General Chief Complaint: Extremity Problem Stated Complaint: r leg red and swollen Time Seen by Provider: 06/26/23 14:04 Source: patient and RN notes reviewed Mode of arrival: ambulatory Limitations: no limitations History of Present Illness HPI Narrative: This is a 53-year-old male, with a past medical history of hyperlipidemia, hypertension, morbid obesity, ZANDER, and diabetes, presenting to the emergency department for evaluation of right lower leg swelling, pain, and redness x1 week. Patient denies any recent trauma, injury, or twisting of his ankle. Denies any open wounds, or insect bites. He states that he took Advil prior to his arrival which provided him with some relief. He denies any fevers, chills, chest pain, shortness of breath, abdominal pain, nausea, vomiting or diarrhea. No other complaints or concerns at this time. Onset (ago): day(s) Severity: moderate Relieving factors: nothing Exacerbating factors: nothing Other symptoms: none Related Data Previous Rx's Medication Instructions Recorded blood sugar diagnostic (FreeStyle #100 ea 09/18/20 Test strips) comp.stocking,thigh,long,x-lrg #2 ea 09/18/20 lancets 28 gauge (FreeStyle #100 ea 09/18/20 Lancets) amlodipine 10 mg tablet 10 mg PO DAILY 90 days #90 tabs 03/15/23 glipizide 5 mg tablet, extended 5 mg PO DAILY 60 days #60 tabs 03/15/23 release 24 hr metformin 1,000 mg tablet 1,000 mg PO BID 90 days #180 tabs 03/15/23 metoprolol tartrate 100 mg tablet 100 mg PO BID 90 days #180 tabs 03/15/23 simvastatin 20 mg tablet 20 mg PO BEDTIME 90 days #90 tabs 03/15/23 Allergies Allergy/AdvReac Type Severity Reaction Status Date / Time empagliflozin [Jardiance] AdvReac Unknown penile Verified 03/15/23 15:54 swelling Review of Systems Review of Systems: Yes all other systems are reviewed and are negative Constitutional: Constitutional: Reports as per [facility] Past Medical History Medical History Colon cancer screening DMII (diabetes mellitus, type 2) HLD (hyperlipidemia) HTN (hypertension) Lower extremity edema ZANDER (obstructive sleep apnea) Surgical History History of extraction of renal calculus History of tonsillectomy Family History Family History Father Medical history unknown Mother Hypertension Diabetes ZANDER (obstructive sleep apnea) Stroke Brother Diabetes Social History Social History Household Members: Family Housing: House Do you presently have visiting nurse or other home services: No Alcohol intake: never Patient Tobacco Use Status: Never used Tobacco Smoked in Last 30 Days: No e-Cigarette/Vaping Use: Never Used Second Hand Smoke Exposure: No Use of substances other than those prescribed or required for medical reasons: No Advance Directives: Yes Advance Directives on File: Yes Advance Directives Date on File: 08/05/22 service: No Current occupational status: employed Current occupational exposures/hazards: No Cognitive needs: No Hearing needs: No Vision needs: No Physical Exam Vital Signs: Vital Signs: Last Vital Signs Temp 98.6 F 06/26/23 16:30 Pulse 82 06/26/23 16:30 Resp 18 06/26/23 16:30 BP 140/75 H 06/26/23 16:30 Pulse Ox 97 06/26/23 16:30 O2 Del Method Room Air 06/26/23 16:30 BMI result Body Mass Index 59.5 Const: General: cooperative, comfortable and no acute distress Orientation/consciousness: patient oriented x3 Limitations: no limitations HEENT: Head: Yes normal to inspection, Yes normocephalic and Yes atraumatic Ears: hearing grossly normal bilaterally General nose exam: Normal external nose present Face and sinus: Yes normal facial exam Mouth: Normal oral and palatal mucosa present, oropharynx normal and moist mucous membranes Throat: Yes posterior oropharynx normal Eyes: General: appearance normal, both eyes and all related structures Eyelids: Yes eyelids normal Conjunctivae: conjunctivae normal Sclerae: sclerae normal Pupils: Equal, round and reactive pupils present EOM: EOMs intact bilaterally Neck: Neck: Yes normal visual inspection, Yes full ROM and Yes no lymphadenopathy Lymphatic: no lymphadenopathy noted Chest: Chest palpation & inspection: normal inspection of the chest Resp: Effort & Inspection: normal respiratory effort and able to speak in complete sentences Auscultation: clear to auscultation bilaterally, no crackles, no rales, no rhonchi and no wheezes Cardio: Rate: regular rate Rhythm: regular rhythm Heart sounds: S1 normal heart sound present and S2 normal heart sound present GI: Inspection: Yes normal to inspection Skin: General skin exam: no rashes or lesions noted Trauma: no lacerations or abrasions Wounds: no wounds Neuro: General: patient oriented x3 and moves all extremities Cranial nerves: Yes Equal, round and reactive pupils present Extrem: Other: Right ankle, medial aspect there is erythema and edema noted. No induration or fluctuance noted. No open wounds, drainage, or puncture wounds noted. Right leg with non pitting edema noted, extremity is warm to the touch. DP pulses 2+. Range of motion of the ankle is full and intact. General: Yes normal to inspection Right upper extremity: normal to inspection Left upper extremity: normal to inspection Right lower extremity: normal to inspection Left lower extremity: normal to inspection Course Course Course Narrative: This is a rapid medical exam. Deferred additional HPI, ROS, PE to primary provider. 53 yo with history of DM, HTN, HLD, obesity, ZANDER here with complaints of right lower extremity redness/swelling/pain since Wednesday. No fevers/chills. Will check labs, US. VSS Reevaluation(s) Reevaluation #1: Spoke to [facility], Dr. Welch, reports that patient has a DVT from femoral to popliteal vein, unable to see calf vessels due to patient's body habitus. Discussed case with Dr. Dominguez room, given BMI of 60, no Aks are contraindicated. Patient needs to be put on Lovenox. Patient is not a candidate for clot retrieval surgery. Also discussed with Dr. Goodson that given transition from Lovenox to Coumadin is difficult outpatient, patient would likely need to be admitted. Sign out given to my colleague, SOFI Guillen ending CTA order and possible hospital admission Time: 15:25 Reevaluation #2: Given the extent of the DVT, a CTA was ordered to rule out PE. Per previous provider, Dr Medina recommends admission for further managemnt regardless of CTA study Time: 17:07 Reevaluation #3: Patient's CT angiography shows extensive bilateral PE but no evidence of heart strain per [facility]. I did for this along to the admitting doctor, Dr. Mcneil. The patient has already been anticoagulated with Lovenox Time: 20:48 Medications Administered Discontinued Medications Generic Name Dose Route Start Last Admin Trade Name Abdiel PRN Reason Stop Dose Admin Enoxaparin Sodium 160 mg 06/26/23 17:43 06/26/23 17:51 Enoxaparin Sodium 80 Mg/0.8 Ml Syringe 1 mg/kg (160 mg) 06/26/23 17:44 160 mg SUBCUT Administration ONCE ONE Iohexol 100 ml 06/26/23 19:38 06/26/23 19:38 Iohexol 350 Mg/Ml 100 Ml Infus..Btl IV 06/26/23 19:39 75 ml ONCE ONE Administration Medical Decision Making Medical Decision Making MDM Narrative: 53-year-old male, , history of diabetes, hypertension, hyperlipidemia, ZANDER, morbid obesity, presenting to the emergency department with evaluation of right lower extremity redness pain and swelling x1 week. On arrival, blood pressure mildly hypertensive at 150/87. Denies any headaches, dizziness, chest pain, visual changes or shortness of breath. Patient has erythema noted to the right medial aspect of the right ankle, right lower extremity is warm to the touch, no induration or fluctuance. No obvious open wounds or abscesses noted. Patient has had no recent travel, surgeries, history of blood clots, cancer, or tobacco use history. Differential diagnosis using it cellulitis versus DVT. Plan: Basic labs, ultrasound, x-ray right ankle Differential Diagnosis Differential Diagnoses: The differential diagnosis associated with the presentation includes Cellulitis, DVT, abscess, folliculitis, osteomyelitis - unlikely Admission/Observation Consideration of admission/observation: Escalation of care including admission/observation considered Escalation of care including admission was considered given patient's risk factors and extensive DVT Lab Data [facility] Lab Attestation statement: I reviewed the patient's lab results. Patient with no leukocytosis, normocytic anemia noted at 13.2/41.8, hyperglycemi c at 238. 06/26/23 14:00 06/26/23 14:00 Labs: Lab Results 06/26/23 06/26/23 06/26/23 Range/Units 14:00 14:00 16:06 WBC 10.7 (4.8-10.8) X10*3/uL RBC 4.81 (4.60-5.80) X10*6/uL Hgb 13.2 L (14.0-18.0) g/dl Hct 41.8 L (42.0-52.0) % MCV 86.9 (80.0-98.0) fL MCH 27.4 (27.0-33.0) pg MCHC 31.6 (31.0-36.0) g/dl RDW 13.4 (11.0-16.0) % Plt Count 254 (160-400) X10*3/uL MPV 9.7 (9.4-12.4) fL Immature Gran % (Auto) 1.3 H (0.0-0.4) % Neut % (Auto) 72.5 (45-73) % Lymph % (Auto) 15.8 L (20-40) % Frederick % (Auto) 7.8 (2-11) % Eos % (Auto) 2.1 (0-4) % Baso % (Auto) 0.5 (0-2) % Lymph # (Auto) 1.7 (1.2-4.9) X10*3/uL Frederick # (Auto) 0.8 (0.1-1.2) X10*3/uL Eos # (Auto) 0.2 (0.0-0.4) X10*3/uL Baso # (Auto) 0.1 (0.0-0.2) X10*3/uL Abs Immat Gran (auto) 0.14 H (0.00-0.03) X10*3/uL Absolute Neuts (auto) 7.8 (2.0-8.3) x10*3/uL Absolute Nucleated RBC 0.000 (0.0-0.012) X10*3/uL Nucleated RBC % (auto) 0.0 (0.0-0.2) /100WBC PT 11.7 (11.1-13.3) SEC INR 1.0 (0.9-1.1) APTT 33.9 (26.0-36.4) SEC Sodium 139 (135-145) mmol/L Potassium 4.3 (3.3-5.1) mmol/L Chloride 109 H (96-108) mmol/L Carbon Dioxide 18 L (22-29) mmol/L Anion Gap 16 (12-20) BUN 11 (9-16) mg/dL Creatinine 0.93 (0.5-1.4) mg/dL Estim Creat Clear Calc 132.2 Estimated GFR > 60 Random Glucose 238 H (60-115) mg/dL Calcium 9.2 D (8.4-10.2) mg/dL Total Bilirubin (0.0-1.0) mg/dL Direct Bilirubin (0.0-0.5) mg/dL AST (5-37) U/L ALT (0-40) U/L Alkaline Phosphatase (39-117) U/L Total Protein (6.5-8.0) g/dL Albumin (3.5-5.0) g/dL 06/26/23 Range/Units 16:06 WBC (4.8-10.8) X10*3/uL RBC (4.60-5.80) X10*6/uL Hgb (14.0-18.0) g/dl Hct (42.0-52.0) % MCV (80.0-98.0) fL MCH (27.0-33.0) pg MCHC (31.0-36.0) g/dl RDW (11.0-16.0) % Plt Count (160-400) X10*3/uL MPV (9.4-12.4) fL Immature Gran % (Auto) (0.0-0.4) % Neut % (Auto) (45-73) % Lymph % (Auto) (20-40) % Frederick % (Auto) (2-11) % Eos % (Auto) (0-4) % Baso % (Auto) (0-2) % Lymph # (Auto) (1.2-4.9) X10*3/uL Frederick # (Auto) (0.1-1.2) X10*3/uL Eos # (Auto) (0.0-0.4) X10*3/uL Baso # (Auto) (0.0-0.2) X10*3/uL Abs Immat Gran (auto) (0.00-0.03) X10*3/uL Absolute Neuts (auto) (2.0-8.3) x10*3/uL Absolute Nucleated RBC (0.0-0.012) X10*3/uL Nucleated RBC % (auto) (0.0-0.2) /100WBC PT (11.1-13.3) SEC INR (0.9-1.1) APTT (26.0-36.4) SEC Sodium (135-145) mmol/L Potassium (3.3-5.1) mmol/L Chloride (96-108) mmol/L Carbon Dioxide (22-29) mmol/L Anion Gap (12-20) BUN (9-16) mg/dL Creatinine (0.5-1.4) mg/dL Estim Creat Clear Calc Estimated GFR Random Glucose (60-115) mg/dL Calcium (8.4-10.2) mg/dL Total Bilirubin 0.8 (0.0-1.0) mg/dL Direct Bilirubin 0.2 (0.0-0.5) mg/dL AST 29 (5-37) U/L ALT 38 (0-40) U/L Alkaline Phosphatase 210 H (39-117) U/L Total Protein 7.4 (6.5-8.0) g/dL Albumin 3.9 (3.5-5.0) g/dL Radiology Impression Discussion of test interpretation with radiology: I have reviewed the radiologist's reading. Radiologist Impression: EXAMINATION:? US VENOUS ULTRASOUND WITH DOPPLER LOWER EXTREMITY, RIGHT CLINICAL INFORMATION:? Swelling and redness COMPARISON:? None available. TECHNIQUE: Ultrasound of the deep veins is performed from the hip to the calf with compression sonography and color and pulse Doppler assessment. Spectral analysis with color-flow imaging is performed. FINDINGS: There is echogenic occlusive thrombus in the upper femoral vein extending to the popliteal vein. The common femoral vein, profunda branch, and greater saphenous vein appear patent with normal waveform. Calf veins are not visualized secondary to edema of the calf and body habitus. US/US venous duplex LE RT IMPRESSION: Occlusive thrombus in the upper femoral vein extending to the popliteal vein. ? This critical result was discussed with VANDA Mendenhall at 3:20 PM on 06/26/2023 and it was ascertained that the content and urgency of the report was understood at the time of direct communication. ? Dictated By: Janina Welch MD Signed By: <Electronically signed by Janina Welch MD in OV> 06/26/23 1522 Discharge Plan Discharge Clinical Impression: DVT (deep venous thrombosis), Pulmonary embolism, bilateral Patient Disposition: Admitted As Inpatient
[2023-06-26 14:04] LABS: MANUAL DIFF FLAG NO
[2023-06-26 14:05] LABS: Basophils Absolute Auto 0.1 X10*3/uL (0.0-0.2); Basophils Percent Auto 0.5 % (0-2); Eosinophils Absolute Auto 0.2 X10*3/uL (0.0-0.4); Eosinophils Percent Auto 2.1 % (0-4); Hematocrit 41.8 % (42.0-52.0); Hemoglobin 13.2 g/dl (14.0-18.0); Imm Gran Abs Auto 0.14 X10*3/uL (0.00-0.03); Imm Gran Pct Auto 1.3 % (0.0-0.4); Lymphocytes Absolute Auto 1.7 X10*3/uL (1.2-4.9); Lymphocytes Percent Auto 15.8 % (20-40); Mean Corpuscular HGB Conc 31.6 g/dl (31.0-36.0); Mean Corpuscular Hemoglobin 27.4 pg (27.0-33.0); Mean Corpuscular Volume 86.9 fL (80.0-98.0); Mean Platelet Volume 9.7 fL (9.4-12.4); Monocytes Absolute Auto 0.8 X10*3/uL (0.1-1.2); Monocytes Percent Auto 7.8 % (2-11); Neutrophils Absolute Auto 7.8 x10*3/uL (2.0-8.3); Neutrophils Percent Auto 72.5 % (45-73); Platelet Count 254 X10*3/uL (160-400); Red Blood Count 4.81 X10*6/uL (4.60-5.80); Red Cell Distribution Width 13.4 % (11.0-16.0); White Blood Count 10.7 X10*3/uL (4.8-10.8)
[2023-06-26 14:24] LABS: Anion Gap 16 (12-20); Blood Urea Nitrogen 11 mg/dL (9-16); Calcium 9.2 mg/dL (8.4-10.2); Carbon Dioxide 18 mmol/L (22-29); Chloride 109 mmol/L (96-108); Creatinine Clr Calc Pharmacy 132.2; Estimated Glomerular Filt Rate > 60; Glucose Random 238 mg/dL (60-115); Potassium 4.3 mmol/L (3.3-5.1); Sodium 139 mmol/L (135-145)
[2023-06-26 16:21] LABS: Prothrombin Time 11.7 SEC (11.1-13.3)
[2023-06-26 16:23] LABS: Partial Thromboplastin Time 33.9 SEC (26.0-36.4)
[2023-06-26 16:30] VITALS: BP 140/75; PULSE 82; RESP 18; TEMP 37; O2SAT 97
[2023-06-26 16:35] LABS: Alanine Aminotransferase 38 U/L (0-40); Albumin Level 3.9 g/dL (3.5-5.0); Alkaline Phosphatase 210 U/L (39-117); Aspartate Amino Transferase 29 U/L (5-37); Bilirubin Direct 0.2 mg/dL (0.0-0.5); Bilirubin Total 0.8 mg/dL (0.0-1.0); Total Protein 7.4 g/dL (6.5-8.0)
--- NOTE | 2023-06-26 17:27 | PHA.MEDREC ---
Pharmacy Consult ? Medication Reconciliation Pharmacy has completed the medication reconciliation.
[2023-06-26] MEDS: Enoxaparin Sodium 80 MG/0.8 ML SYRINGE 160 MG SUBCUT (17:51)
[2023-06-26] MEDS: iohexoL 350 MG/ML 100 ML INFUS..BTL IV (19:38)
--- NOTE | 2023-06-26 21:09 | PM.IMHP ---
History of Present Illness Date of Service: 06/26/23 Attending physician on admission: Sami Mcneil Chief Complaint: rle swelling 53-year-old male with history of [id number] type 2 diabetes, hypertension, hyperlipidemia, ZANDER noncompliant with CPAP due to broken mask, who is morbidly obese with BMI greater than 59 presented to the ED earlier today for evaluation of right lower extremity swelling that has been ongoing for 1 week. He has been noting increased pain and paresthesias in the right lower extremity. On further questioning, he has also been experiencing dyspnea on exertion for the last 3 days. No shortness of breath at rest, palpitations, lightheadedness, or chest pains. In the ED, he is hemodynamically stable, slightly hypertensive to 150/87. No hypoxia. Hematology studies are unremarkable. PT/INR and PTT are within normal limits. Renal function baseline, electrolyte levels unremarkable. Glucose 238. Troponin and BNP pending. X-ray of the right ankle showed soft tissue swelling but no acute osseous abnormality. Venous duplex of the right lower extremity showed occlusive thrombus in the right upper femoral vein extending to the popliteal vein. Calf veins were not visualized secondary to edema of the calf and body habitus. CTA chest showed extensive bilateral PE within bilateral lower lobar, right upper, and middle lobar and segmental pulmonary thromboembolism without any evidence of right ventricular strain or pulmonary arterial hypertension. The patient denies any recent extensive travel or recent surgeries. He is not a smoker. He has no family history of clotting disorders or no personal history of blood clots. ED discussed case with vascular surgery recommending admission for parental anticoagulation with Lovenox. He is not a candidate for novel anticoagulation due to BMI but can be bridged to Coumadin. Per vascular surgery he is not a candidate for clot retrieval therapy. Review of Systems Review of Systems: General: No fevers, malaise, unintentional weight loss HEENT: No blurred vision, diplopia. No sore throat, nasal congestion, rhinorrhea, sinus pain, ear pain Cardiovascular: No chest pain, palpitations, or leg edema Respiratory: +sob. No wheezing, cough GI: No abdominal pain, nausea, vomiting, diarrhea, constipation, melena, hematochezia : No dysuria, hematuria, increased urinary frequency, decreased urinary output MSK: No myalgia, back pain. +RLE swelling Neuro: No headaches, weakness, paresthesias Skin: No rashes or lesions [facility] Medical History Colon cancer screening DMII (diabetes mellitus, type 2) HLD (hyperlipidemia) HTN (hypertension) Lower extremity edema ZANDER (obstructive sleep apnea) Family History Father Medical history unknown Mother Hypertension Diabetes ZANDER (obstructive sleep apnea) Stroke Brother Diabetes Surgical History History of extraction of renal calculus History of tonsillectomy Social History Household Members: Family Housing: House Do you presently have visiting nurse or other home services: No Alcohol intake: never Patient Tobacco Use Status: Never used Tobacco Smoked in Last 30 Days: No e-Cigarette/Vaping Use: Never Used Second Hand Smoke Exposure: No Use of substances other than those prescribed or required for medical reasons: No Advance Directives: Yes Advance Directives on File: Yes Advance Directives Date on File: 08/05/22 service: No Current occupational status: employed Current occupational exposures/hazards: No Cognitive needs: No Hearing needs: No Vision needs: No Meds Allergies Allergy/AdvReac Type Severity Reaction Status Date / Time empagliflozin [Jardiance] AdvReac Unknown penile Verified 03/15/23 15:54 swelling Active Medications: Current Medications Acetaminophen (Acetaminophen 325 Mg Tablet) 650 mg PO Q6H PRN PRN Reason: Pain, Mild (Pain Scale 1-3) Amlodipine Besylate (Amlodipine Besylate 10 Mg Tablet) 10 mg PO DAILY [facility]; Protocol Atorvastatin Calcium (Atorvastatin Calcium 10 Mg Tablet) 10 mg PO BEDTIME [facility] Dextrose (Dextrose 50 % 25 Gm/50 Ml Syringe) 25 gm IVPUSH Q15M PRN; Protocol PRN Reason: per Hypoglycemia Standing Ord. Enoxaparin Sodium (Enoxaparin Sodium 80 Mg/0.8 Ml Syringe) 160 mg 1 mg/kg (160 mg) SUBCUT BID [facility] Glucose (Glucose Gel 15 Gm Gel..Gram.) 15 gm PO Q15M PRN; Protocol PRN Reason: per Hypoglycemia Standing Ord. Insulin Human Lispro (Insulin Lispro 100 Unit/Ml 3 Ml Vial) 0 unit SUBCUT QIDACHS [facility]; Protocol Melatonin (Melatonin 3 Mg Tablet) 6 mg PO BEDTIME PRN PRN Reason: Insomnia Metformin HCl (Metformin Hcl 1,000 Mg Tablet) 1,000 mg PO BID@0800,1700 [facility] Metoprolol Tartrate (Metoprolol Tartrate 100 Mg Tablet) 100 mg PO BID [facility]; Protocol Ondansetron HCl (Ondansetron Hcl 4 Mg/2 Ml Vial) 4 mg IVPUSH Q8H PRN PRN Reason: Nausea and Vomiting Pharmacy Consult (Consult Rx Perform Med Rec) 1 each MISCELLANE ONCE PRN PRN Reason: Consult order Physical Exam Vital Signs and Narrative: Vital Signs: Last Vital Signs Temp 98.6 F 06/26/23 16:30 Pulse 82 06/26/23 16:30 Resp 18 06/26/23 16:30 BP 140/75 H 06/26/23 16:30 Pulse Ox 97 06/26/23 16:30 O2 Del Method Room Air 06/26/23 16:30 BMI result Body Mass Index 59.5 Constitutional - Awake and Alert, No apparent distress Eyes - PERRLA, EOMI Cardiovascular - S1S2, RRR, No edema Respiratory - Normal lung expansion, Normal respiratory effort, No respiratory distress, CTA bilaterally Extremities - swelling, mild erythema, warmth, and ttp right calf. No induration or fluctuance Skin - Warm/Dry Neurological - Alert & oriented x3 Psychological - Appropriate affect Results Labs 06/26/23 14:00 06/26/23 14:00 Labs: Laboratory Results - last 24 hr 06/26/23 06/26/23 06/26/23 14:00 14:00 16:06 MCV 86.9 MCH 27.4 MCHC 31.6 RDW 13.4 Plt Count 254 MPV 9.7 Immature Gran % (Auto) 1.3 H Neut % (Auto) 72.5 Lymph % (Auto) 15.8 L [place] % (Auto) 7.8 Eos % (Auto) 2.1 Baso % (Auto) 0.5 Lymph # (Auto) 1.7 [place] # (Auto) 0.8 Eos # (Auto) 0.2 Baso # (Auto) 0.1 Abs Immat Gran (auto) 0.14 H Absolute Neuts (auto) 7.8 Absolute Nucleated RBC 0.000 Nucleated RBC % (auto) 0.0 PT 11.7 INR 1.0 APTT 33.9 Anion Gap 16 Estim Creat Clear Calc 132.2 Estimated GFR > 60 Random Glucose 238 H Calcium 9.2 D Total Bilirubin Direct Bilirubin AST ALT Alkaline Phosphatase Total Protein Albumin 06/26/23 16:06 MCV MCH MCHC RDW Plt Count MPV Immature Gran % (Auto) Neut % (Auto) Lymph % (Auto) [place] % (Auto) Eos % (Auto) Baso % (Auto) Lymph # (Auto) [place] # (Auto) Eos # (Auto) Baso # (Auto) Abs Immat Gran (auto) Absolute Neuts (auto) Absolute Nucleated RBC Nucleated RBC % (auto) PT INR APTT Anion Gap Estim Creat Clear Calc Estimated GFR Random Glucose Calcium Total Bilirubin 0.8 Direct Bilirubin 0.2 AST 29 ALT 38 Alkaline Phosphatase 210 H Total Protein 7.4 Albumin 3.9 Imaging Radiologist's Impressions: Impressions Venous Duplex 06/26/23 14:30 IMPRESSION: Occlusive thrombus in the upper femoral vein extending to the popliteal vein. This critical result was discussed with VANDA Mendenhall at 3:20 PM on 06/26/2023 and it was ascertained that the content and urgency of the report was understood at the time of direct communication. Ankle X-Ray 06/26/23 15:20 IMPRESSION: Soft tissue edema Chest CTA 06/26/23 19:49 IMPRESSION: 1. Abnormal study showing features consistent with bilateral lower lobar and right upper and middle lobar and segmental pulmonary thromboembolism without evidence of any right ventricular strain or pulmonary arterial hypertension. 2. Nonspecific cutaneous, subcutaneous soft tissue density measuring 2.2 cm within the left breast, may represent cutaneous, subcutaneous pathology versus gynecomastia. Please correlate clinically. 3. Diffuse hepatic steatosis. VTE: Positive. This critical result was discussed with Dr. Paz at 8:41 PM on 06/26/2023 and it was ascertained that the content and urgency of the report was understood at the time of direct communication. Assessment and Plan (1) DVT (deep venous thrombosis): Status: Acute (2) Pulmonary embolism, bilateral: Status: Acute Plan 53-year-old male with history of nqf-brtnkcf-[id number] type 2 diabetes, hypertension, hyperlipidemia, ZANDER noncompliant with CPAP due to broken mask, who is morbidly obese with BMI greater than 59 admitted for RLE DVT and PE. #Acute VTE- unprovoked, likely due to morbid obesity -RLE with occlusive thrombus popliteal veins and CTA chest shows extensive bilateral thrombo embolism without evidence of right heart strain -hemodynamically stable, no hypoxia -initiate therapeutic Lovenox for vascular surgery -not a candidate for an OAC therapy due to BMI. Will require bridged to Coumadin -ED consulted vascular surgery -consider outpatient follow-up with Hematology # byx-[id number] type 2 diabetes- with hyperglycemia -hemoglobin A1c pending -POC glucose -diabetic diet -Humalog on sliding scale # hypertension -blood pressure reasonably controlled -continue metoprolol # HLD -continue statin DVT prophylaxis-on therapeutic Lovenox Full code Patient requires inpatient stay at least 2 midnights for management of occlusive thrombus of the right lower extremity and extensive bilateral pulmonary emboli requiring parental anticoagulation and bridged to Coumadin as well as close monitoring and expert consultation Time Spent With Patient Time: Total time managing care of this patient today ____ minutes. Quality Stroke Does the patient have a stroke diagnosis?: No VTE Prior VTE?: No VTE Risk Level:: Medical - moderate - high VTE Device Contraindication: Treatment Not Indicated VTE Drug Contraindication: N/A - Med Ordered
[2023-06-26 21:20] LABS: Glucose, Whole Blood 161 mg/dL (60-115)
[2023-06-26] MEDS: Insulin Lispro 100 UNIT/ML 3 ML VIAL SUBCUT (21:24)
[2023-06-26] MEDS: Metoprolol Tartrate 100 MG TABLET PO (21:24)
[2023-06-26 22:24] LABS: B Type Natriuretic Peptide < 10 pg/mL (<100); Troponin-I High Sensitivity < 2.7 ng/L (<3.5-35.0)
[2023-06-27] MEDS: Acetaminophen 325 MG TABLET 650 MG PO (00:16)
[2023-06-27 00:32] VITALS: BP 151/58; PULSE 77; RESP 18; TEMP 37.2; O2SAT 94
[2023-06-27 03:04] VITALS: PULSE 81; RESP 20; O2SAT 94
--- NOTE | 2023-06-27 03:11 | PC.NURSE ---
pt placed on c-pap per resp therapy
[2023-06-27 03:28] LABS: Estimated Average Glucose 192 mg/dL; Hemoglobin A1c % 8.3 %
[2023-06-27 05:37] LABS: MANUAL DIFF FLAG NO
[2023-06-27 05:41] LABS: Basophils Absolute Auto 0.1 X10*3/uL (0.0-0.2); Basophils Percent Auto 0.6 % (0-2); Eosinophils Absolute Auto 0.2 X10*3/uL (0.0-0.4); Eosinophils Percent Auto 2.2 % (0-4); Hematocrit 39.3 % (42.0-52.0); Hemoglobin 12.5 g/dl (14.0-18.0); Imm Gran Abs Auto 0.13 X10*3/uL (0.00-0.03); Imm Gran Pct Auto 1.4 % (0.0-0.4); Lymphocytes Absolute Auto 1.9 X10*3/uL (1.2-4.9); Lymphocytes Percent Auto 20.2 % (20-40); Mean Corpuscular HGB Conc 31.8 g/dl (31.0-36.0); Mean Corpuscular Volume 87.9 fL (80.0-98.0); Monocytes Absolute Auto 0.7 X10*3/uL (0.1-1.2); Monocytes Percent Auto 7.8 % (2-11); Neutrophils Absolute Auto 6.4 x10*3/uL (2.0-8.3); Neutrophils Percent Auto 67.8 % (45-73); Platelet Count 194 X10*3/uL (160-400); Red Blood Count 4.47 X10*6/uL (4.60-5.80); Red Cell Distribution Width 13.2 % (11.0-16.0); White Blood Count 9.4 X10*3/uL (4.8-10.8)
[2023-06-27 06:04] LABS: Anion Gap 15 (12-20); Blood Urea Nitrogen 9 mg/dL (9-16); Calcium 9.3 mg/dL (8.4-10.2); Carbon Dioxide 21 mmol/L (22-29); Chloride 108 mmol/L (96-108); Estimated Glomerular Filt Rate > 60; Glucose Random 173 mg/dL (60-115); Potassium 4.1 mmol/L (3.3-5.1); Sodium 140 mmol/L (135-145)
[2023-06-27] MEDS: Enoxaparin Sodium 80 MG/0.8 ML SYRINGE 160 MG SUBCUT ×2 (06:18→17:57)
[2023-06-27 07:17] LABS: Glucose, Whole Blood 197 mg/dL (60-115)
[2023-06-27] MEDS: Insulin Lispro 100 UNIT/ML 3 ML VIAL SUBCUT ×4 (07:37→20:37)
[2023-06-27] MEDS: amLODIPine Besylate 10 MG TABLET PO (07:38)
[2023-06-27] MEDS: Metoprolol Tartrate 100 MG TABLET PO ×2 (07:38→20:37)
--- NOTE | 2023-06-27 07:42 | PC.NURSE ---
patient moved into hospital bed, sitting up in chair eating breakfast. patient refused metformin due to getting a CT scan yesterday.
[2023-06-27 07:54] LABS: Prothrombin Time 11.6 SEC (11.1-13.3)
--- NOTE | 2023-06-27 09:13 | HO.PM.IMPN ---
Subjective Subjective Date of Service: 06/27/23 Review of Systems Follow up PE, DVT no pain some numbness to RLE Physical Exam Vital Signs: Vital Signs: Last Vital Signs Temp 99 F 06/27/23 00:32 Pulse 77 06/27/23 00:32 Resp 20 06/27/23 03:04 BP 151/58 H 06/27/23 00:32 Pulse Ox 94 06/27/23 00:32 O2 Del Method Room Air 06/27/23 00:32 BMI result Body Mass Index 59.5 Appearing in no acute distress lung sounds are clear to auscultation heart regular rate rhythm, clear S1, S2 positive bowel sounds, abdomen is soft, nontender, obese neuro patient is alert x3, no focal deficits Objective Data Active Medications Acetaminophen (Acetaminophen 325 Mg Tablet) 650 mg PO Q6H PRN PRN Reason: Pain, Mild (Pain Scale 1-3) Last Admin: 06/27/23 00:16 Dose: 650 mg Documented By: LAWRENCE Amlodipine Besylate (Amlodipine Besylate 10 Mg Tablet) 10 mg PO DAILY [facility]; Protocol Last Admin: 06/27/23 07:38 Dose: 10 mg Documented By: RODRICK Atorvastatin Calcium (Atorvastatin Calcium 10 Mg Tablet) 10 mg PO BEDTIME [facility] Dextrose (Dextrose 50 % 25 Gm/50 Ml Syringe) 25 gm IVPUSH Q15M PRN; Protocol PRN Reason: per Hypoglycemia Standing Ord. Enoxaparin Sodium (Enoxaparin Sodium 80 Mg/0.8 Ml Syringe) 160 mg 1 mg/kg (160 mg) SUBCUT Q12H [facility] Last Admin: 06/27/23 06:18 Dose: 160 mg Documented By: LAWRENCE Glucose (Glucose Gel 15 Gm Gel..Gram.) 15 gm PO Q15M PRN; Protocol PRN Reason: per Hypoglycemia Standing Ord. Insulin Human Lispro (Insulin Lispro 100 Unit/Ml 3 Ml Vial) 0 unit SUBCUT QIDACHS [facility]; Protocol Last Admin: 06/27/23 07:37 Dose: 2 unit Documented By: RODRICK Melatonin (Melatonin 3 Mg Tablet) 6 mg PO BEDTIME PRN PRN Reason: Insomnia Metformin HCl (Metformin Hcl 1,000 Mg Tablet) 1,000 mg PO BID@0800,1700 [facility] Last Admin: 06/27/23 07:40 Dose: Not Given Documented By: RODRICK Non-Admin Reason: Patient Refused Metoprolol Tartrate (Metoprolol Tartrate 100 Mg Tablet) 100 mg PO BID [facility]; Protocol Last Admin: 06/27/23 07:38 Dose: 100 mg Documented By: RODRICK Ondansetron HCl (Ondansetron Hcl 4 Mg/2 Ml Vial) 4 mg IVPUSH Q8H PRN PRN Reason: Nausea and Vomiting Pharmacy Consult (Consult Rx Perform Med Rec) 1 each MISCELLANE ONCE PRN PRN Reason: Consult order Labs 06/27/23 05:18 06/27/23 05:18 Labs: Laboratory Results - last 24 hr 06/26/23 06/26/23 06/26/23 14:00 14:00 14:00 MCV 86.9 MCH 27.4 MCHC 31.6 RDW 13.4 Plt Count 254 MPV 9.7 Immature Gran % (Auto) 1.3 H Neut % (Auto) 72.5 Lymph % (Auto) 15.8 L [place] % (Auto) 7.8 Eos % (Auto) 2.1 Baso % (Auto) 0.5 Lymph # (Auto) 1.7 [place] # (Auto) 0.8 Eos # (Auto) 0.2 Baso # (Auto) 0.1 Abs Immat Gran (auto) 0.14 H Absolute Neuts (auto) 7.8 Absolute Nucleated RBC 0.000 Nucleated RBC % (auto) 0.0 PT INR APTT Anion Gap 16 Estim Creat Clear Calc 132.2 Estimated GFR > 60 POC Glucose Random Glucose 238 H Estimat Average Glucose 192 Hemoglobin A1c % 8.3 Calcium 9.2 D Total Bilirubin Direct Bilirubin AST ALT Alkaline Phosphatase B-Natriuretic Peptide Total Protein Albumin 06/26/23 06/26/23 06/26/23 16:06 16:06 21:16 MCV MCH MCHC RDW Plt Count MPV Immature Gran % (Auto) Neut % (Auto) Lymph % (Auto) [place] % (Auto) Eos % (Auto) Baso % (Auto) Lymph # (Auto) [place] # (Auto) Eos # (Auto) Baso # (Auto) Abs Immat Gran (auto) Absolute Neuts (auto) Absolute Nucleated RBC Nucleated RBC % (auto) PT 11.7 INR 1.0 APTT 33.9 Anion Gap Estim Creat Clear Calc Estimated GFR POC Glucose 161 H Random Glucose Estimat Average Glucose Hemoglobin A1c % Calcium Total Bilirubin 0.8 Direct Bilirubin 0.2 AST 29 ALT 38 Alkaline Phosphatase 210 H B-Natriuretic Peptide Total Protein 7.4 Albumin 3.9 06/26/23 06/27/23 06/27/23 21:56 05:18 05:18 MCV 87.9 MCH 28.0 MCHC 31.8 RDW 13.2 Plt Count 194 MPV 11.0 Immature Gran % (Auto) 1.4 H Neut % (Auto) 67.8 Lymph % (Auto) 20.2 [place] % (Auto) 7.8 Eos % (Auto) 2.2 Baso % (Auto) 0.6 Lymph # (Auto) 1.9 [place] # (Auto) 0.7 Eos # (Auto) 0.2 Baso # (Auto) 0.1 Abs Immat Gran (auto) 0.13 H Absolute Neuts (auto) 6.4 Absolute Nucleated RBC 0.000 Nucleated RBC % (auto) 0.0 PT INR APTT Anion Gap 15 Estim Creat Clear Calc 150.0 Estimated GFR > 60 POC Glucose Random Glucose 173 H Estimat Average Glucose Hemoglobin A1c % Calcium 9.3 Total Bilirubin Direct Bilirubin AST ALT Alkaline Phosphatase B-Natriuretic Peptide < 10 Total Protein Albumin 06/27/23 07:13 MCV MCH MCHC RDW Plt Count MPV Immature Gran % (Auto) Neut % (Auto) Lymph % (Auto) [place] % (Auto) Eos % (Auto) Baso % (Auto) Lymph # (Auto) [place] # (Auto) Eos # (Auto) Baso # (Auto) Abs Immat Gran (auto) Absolute Neuts (auto) Absolute Nucleated RBC Nucleated RBC % (auto) PT INR APTT Anion Gap Estim Creat Clear Calc Estimated GFR POC Glucose 197 H Random Glucose Estimat Average Glucose Hemoglobin A1c % Calcium Total Bilirubin Direct Bilirubin AST ALT Alkaline Phosphatase B-Natriuretic Peptide Total Protein Albumin Assessment and Plan (1) DVT (deep venous thrombosis): Status: Acute Plan 53-year-old male with history of [id number]-[id number] type 2 diabetes, hypertension, hyperlipidemia, ZANDER noncompliant with CPAP due to broken mask, who is morbidly obese with BMI greater than 59 admitted for RLE DVT and PE. Acute VTE- unprovoked likely due to morbid obesity RLE with occlusive thrombus popliteal veins and CTA chest shows extensive bilateral thromboembolism without evidence of right heart strain hemodynamically stable, no hypoxia initiate therapeutic Lovenox vascular surgery consult pending hypercoagulable workup pending mfl-rkrqlyq-oribsnyxq type 2 diabetes- with hyperglycemia hemoglobin A1c pending diabetic diet Humalog on sliding scale hypertension blood pressure reasonably controlled continue metoprolol HLD continue statin DVT prophylaxis-on therapeutic Lovenox Attending Dr. Ramirez Full code continue hospitalization for management of occlusive thrombus of the right lower extremity and extensive bilateral pulmonary emboli requiring parental anticoagulation Time Spent With Patient Time: Total time managing care of this patient today ____ minutes. Quality Stroke Does the patient have a stroke diagnosis?: No VTE Prior VTE?: No VTE Risk Level:: Medical - moderate - high VTE Device Contraindication: Treatment Not Indicated VTE Drug Contraindication: N/A - Med Ordered
[2023-06-27 09:23] VITALS: BP 147/78; PULSE 76; RESP 18; TEMP 36.9; O2SAT 95
[2023-06-27 10:43] VITALS: BP 125/60; PULSE 84; RESP 20; TEMP 36.7; O2SAT 95
[2023-06-27 11:25] LABS: Glucose, Whole Blood 220 mg/dL (60-115)
--- NOTE | 2023-06-27 12:26 | MHC.CM.PN ---
Pt admitted with leg pain. Pt lives at home with his /HCP, and is independent/self-care. D/C plan to return home self-care when medically cleared. HCP on file and verified. Pts to transport. PCP: Dhruv Pelayo vax: x 4
[2023-06-27 15:25] VITALS: BP 160/56; PULSE 95; RESP 18; TEMP 37.2; O2SAT 93
[2023-06-27 16:12] LABS: Glucose, Whole Blood 234 mg/dL (60-115)
[2023-06-27 19:07] VITALS: BP 135/65; PULSE 115; RESP 17; TEMP 37.2; O2SAT 97
--- NOTE | 2023-06-27 19:43 | PC.NURSE ---
Pt arrived from ED in bed oriented to room, call tellez system and staff. A&OX4 neurologically intact. SIMPSON to command 5/5, RLE with 2+ edema and mild erythema per pt numbness improving from previous. + pedal pulses bilat. Denies pain. LSC dim bases denies SOB or CP not on tele confirmed with Mounika Villasenor NP. BS+X4 abdomen soft non-tender denies nausea/vomiting. Vital signs stable. Pt educated on need to inform nurse of any worsening symptoms immediately pt able to teach back. Bed in lowest locked position call tellez within reach. Will continue to monitor and report changes
[2023-06-27 20:03] LABS: Glucose, Whole Blood 256 mg/dL (60-115)
[2023-06-27] MEDS: Atorvastatin Calcium 10 MG TABLET PO (20:37)
[2023-06-28] VITALS: BP 153/69; PULSE 73; RESP 17; TEMP 36.9; O2SAT 93
[2023-06-28 04:00] VITALS: BP 158/78; PULSE 78; RESP 17; O2SAT 97
[2023-06-28] MEDS: Enoxaparin Sodium 80 MG/0.8 ML SYRINGE 160 MG SUBCUT (06:07)
[2023-06-28 06:41] LABS: Anion Gap 15 (12-20); Blood Urea Nitrogen 11 mg/dL (9-16); Calcium 9.4 mg/dL (8.4-10.2); Carbon Dioxide 22 mmol/L (22-29); Chloride 108 mmol/L (96-108); Creatinine Clr Calc Pharmacy 146.4; Estimated Glomerular Filt Rate > 60; Glucose Random 218 mg/dL (60-115); Potassium 3.9 mmol/L (3.3-5.1); Sodium 141 mmol/L (135-145)
[2023-06-28 07:25] VITALS: BP 143/72; PULSE 86; RESP 20; TEMP 36.8; O2SAT 94
[2023-06-28 07:36] LABS: Glucose, Whole Blood 245 mg/dL (60-115)
[2023-06-28] MEDS: metFORMIN HCl 1,000 MG TABLET 1000 MG PO (07:51)
[2023-06-28] MEDS: amLODIPine Besylate 10 MG TABLET PO (07:51)
[2023-06-28] MEDS: Insulin Lispro 100 UNIT/ML 3 ML VIAL SUBCUT ×2 (07:51→12:40)
[2023-06-28] MEDS: Metoprolol Tartrate 100 MG TABLET PO (07:51)
--- NOTE | 2023-06-28 09:31 | PM.DS ---
DS: Providers Provider Date of Service: 06/28/23 Date of admission: 06/26/23 20:50 Primary care physician: Dhruv Frankel PA-C Consults: 06/26/23 21:12 Consult to Vascular Surgery Stat Consulting Provider: [facility] [place] [facility] Reason for consultation: PE, extensive DVT Has provider been notified: Yes DS: Diagnosis Discharge Diagnosis (1) DVT (deep venous thrombosis): Status: Acute DS: Summary Hospital Course Hospital Course: history and physical as per admitting provider.53-year-old male with history of [id number] type 2 diabetes, hypertension, hyperlipidemia, ZANDER noncompliant with CPAP due to broken mask, who is morbidly obese with BMI greater than 59 presented to the ED earlier today for evaluation of right lower extremity swelling that has been ongoing for 1 week.? He has been noting increased pain and paresthesias in the right lower extremity.? On further questioning, he has also been experiencing dyspnea on exertion for the last 3 days.? No shortness of breath at rest, palpitations, lightheadedness, or chest pains.? In the ED, he is hemodynamically stable, slightly hypertensive to 150/87.? No hypoxia.? Hematology studies are unremarkable.? PT/INR and PTT are within normal limits.? Renal function baseline, electrolyte levels unremarkable.? Glucose 238.? Troponin and BNP pending.? X-ray of the right ankle showed soft tissue swelling but no acute osseous abnormality.? Venous duplex of the right lower extremity showed occlusive thrombus in the right upper femoral vein extending to the popliteal vein.? Calf veins were not visualized secondary to edema of the calf and body habitus. CTA chest showed extensive bilateral PE within bilateral lower lobar, right upper, and middle lobar and segmental pulmonary thromboembolism without any evidence of right ventricular strain or pulmonary arterial hypertension. The patient denies any recent extensive travel or recent surgeries.? He is not a smoker.? He has no family history of clotting disorders or no personal history of blood clots.? ED discussed case with vascular surgery recommending admission for parental anticoagulation with Lovenox.? He is not a candidate for novel anticoagulation due to BMI but can be bridged to Coumadin.? Per vascular surgery he is not a candidate for clot retrieval therapy. 53-year-old man treated for unprovoked bilateral pulmonary embolus with right lower extremity occlusive popliteal thrombus. No evidence of heart strain and patient has remained hemodynamically stable without hypoxia. He was initially treated with therapeutic Lovenox. Seen evaluated by vascular surgery and not a candidate for retrieval therapy. He will be started on Eliquis and will likely remain on for 3-6 months. He should follow-up with Hematology for hypercoagulable workup. He was also educated on the importance of weight loss and management as this is likely contributing to the reason why he has the clots due to sedentary lifestyle and obesity. Diabetes mellitus type 2. A1c 8.3. Discussed importance of better management of his diabetes which includes weight loss. He is to continue with his glipizide and metformin. Morbid obesity. BMI 59.5. Discussed importance of weight management as this may be contributing to worsening of other comorbidities Hypertension. Continue medications Hyperlipidemia. Continue statin Time Spent with Patient Time attestation: Total time managing care of this patient today ____ minutes. Discharge coordination time: Greater than 30 minutes Quality: Safe Use of Opioids Does Pt have an Active Cancer Diagnosis on the Problem List?: No Quality: Stroke Does the patient have a stroke diagnosis?: No Physical Exam Vital Signs: Vital Signs: Last Vital Signs Temp 98.2 F 06/28/23 07:25 Pulse 86 06/28/23 07:25 Resp 20 06/28/23 07:25 BP 143/72 H 06/28/23 07:25 Pulse Ox 94 06/28/23 07:25 O2 Del Method Room Air 06/28/23 07:25 BMI result Body Mass Index 59.5 Appearing in no acute distress head is normocephalic atraumatic eyes pupils are PERRLA sclera is anicteric mouth throat mucous membranes are intact and moist neck is supple no lymphadenopathy, no JVD noted lung sounds are clear to auscultation heart regular rate rhythm, clear S1, S2 positive bowel sounds, abdomen is soft, nontender neuro patient is alert x3, no focal deficits DS: Data Data Completed and Pending Completed studies during hospitalization [Text1]: Procedures Dilation of Right Ureter with Intraluminal Device, Via Natural or Artificial Opening Endoscopic (08/02/22) Fluoroscopy of Right Kidney, Ureter and Bladder (08/02/22) Labs on day of discharge: Laboratory Results - last 24 hr 06/27/23 06/27/23 06/27/23 07:42 11:07 16:06 PT 11.6 INR 1.0 APTT 45.0 H D Sodium Potassium Chloride Carbon Dioxide Anion Gap BUN Creatinine Estim Creat Clear Calc Estimated GFR POC Glucose 220 H 234 H Random Glucose Calcium 06/27/23 06/28/23 06/28/23 19:57 06:13 07:31 PT INR APTT Sodium 141 Potassium 3.9 Chloride 108 Carbon Dioxide 22 Anion Gap 15 BUN 11 Creatinine 0.84 Estim Creat Clear Calc 146.4 Estimated GFR > 60 POC Glucose 256 H 245 H Random Glucose 218 H Calcium 9.4 Discharge Plan Discharge Anticipated Discharge Date/Time: 06/28/23 09:24 Patient Disposition: Home, Self-Care Discharge Diagnosis: Bilateral pulmonary embolus DVT Referrals: Sasha Dumont MD [Physician] - 1 Week ( follow-up for hypercoagulable workup) Dhruv Frankel PA-C [Primary Care Provider] - 1 Week Discharge Medications: New Eliquis 5 mg tablet 10 mg PO BID Qty: 14 0RF Rx Instructions: Take twice daily for the first 7 days Eliquis 5 mg tablet 5 mg PO BID Qty: 60 0RF Continued (DME) FreeStyle Test Strip See Rx Instructions .ROUTE .MEDSUPPLY Qty: 100 0RF Rx Instructions: As directed (DME) lancets [FreeStyle Lancets] 28 gauge misc See Rx Instructions .ROUTE .MEDSUPPLY Qty: 100 0RF Rx Instructions: As directed (DME) comp.stocking,thigh,long,x-lrg Misc See Rx Instructions .ROUTE .MEDSUPPLY Qty: 2 0RF Rx Instructions: As directed amlodipine 10 mg tablet 10 mg PO DAILY 90 Days Qty: 90 1RF glipizide 5 mg tablet extended release 24hr 5 mg PO DAILY 60 Days Qty: 60 1RF metformin 1,000 mg tablet 1,000 mg PO BID 90 Days Qty: 180 1RF metoprolol tartrate 100 mg tablet 100 mg PO BID 90 Days Qty: 180 1RF simvastatin 20 mg tablet 20 mg PO BEDTIME 90 Days Qty: 90 1RF Discharge Orders: Discharge Order (Routine); Ordered 06/28/23 Ordered By: Valentine Villasenor Diet: Advance to usual diet Activity on Discharge: As tolerated Stand Alone Forms: Patient Portal Discharge page Care Plan Goals: Continue anticoagulation medication for the next 3-6 months Take Eliquis 10 mg twice daily for the 1st 7 days, then take 5 mg twice daily after that Take your 1st dose of Eliquis today, 06/28/2023, at 18:00 Health Concerns: Pulmonary embolus DVT Plan of Treatment: Follow-up with field coil winder for hypercoagulable workup secondary to unprovoked pulmonary embolus and DVT Follow-up with primary care provider for monitoring of anticoagulant medication Take all medications as prescribed Assessment: see discharge summary
--- NOTE | 2023-06-28 09:42 | MHC.CM.PN ---
Patient has been medically cleared for dc to home today, self care.
[2023-06-28 11:38] LABS: Glucose, Whole Blood 282 mg/dL (60-115)
[2023-06-28 11:43] VITALS: BP 138/81; PULSE 80; RESP 20; TEMP 36.8; O2SAT 95
--- NOTE | 2023-06-28 12:43 | MHC.CM.PN ---
RN came to to get the 30 day free Eliquis coupon for Patient.
[2023-06-28 14:15] LABS: Prothrombin Time 11.8 SEC (11.1-13.3)
--- NOTE | 2023-06-28 14:24 | P.CONGS_ITS ---
History of Present Illness Consult details Consult date: 06/28/23 Reason for consult: other (DVT) Narrative: Morbidly obese 53-year-old gentleman presents to the hospital for acute onset DVT. He works as a parts cleaner. He mostly has a sitting with occasio nal ambulation job. He noted this past week for about 2-3 days he was experiencing lower extremity discomfort and swelling almost a charley horse type feeling. This was noted in the right lower extremity. He was subsequently worked up by the emergency room and found to have a right lower extremity DVT in addition to a PE. Was subsequently started on anticoagulation. Review of Systems Constitutional: Constitutional: Reports as per HPI ENT: Reports system reviewed and no additional complaints, except as documented Cardiovascular: Cardiovascular: Denies chest pain, Denies chest pain at rest and Denies chest pain with activity Respiratory: Respiratory: Denies chest congestion and Denies cough Gastrointestinal: Gastrointestinal: Reports no additional gastrointestinal complaints Musculoskeletal: Musculoskeletal: Denies abnormal gait Integumentary/Breasts: Skin/Breast: Reports pruritus and Denies wounds Neurologic: Reports system reviewed and no additional complaints, except as documented and Denies abnormal gait Psychiatric: Psychiatric: Denies no additional psychiatric complaints [facility] Past Medical History Medical History Colon cancer screening DMII (diabetes mellitus, type 2) HLD (hyperlipidemia) HTN (hypertension) Lower extremity edema ZANDER (obstructive sleep apnea) Family History Family History Father Medical history unknown Mother Hypertension Diabetes ZANDER (obstructive sleep apnea) Stroke Brother Diabetes Surgical History Surgical History History of extraction of renal calculus History of tonsillectomy Social History Social History Household Members: Spouse Housing: House Do you presently have visiting nurse or other home services: Yes Alcohol intake: never Patient Tobacco Use Status: Never used Tobacco e-Cigarette/Vaping Use: Never Used Second Hand Smoke Exposure: No Advance Directives Date on File: 08/05/22 service: No Current occupational status: employed Current occupational exposures/hazards: No Cognitive needs: No Hearing needs: No Vision needs: No Meds Allergies Allergy/AdvReac Type Severity Reaction Status Date / Time empagliflozin [Jardiance] AdvReac Unknown penile Verified 03/15/23 15:54 swelling Physical Exam Vital Signs: Vital Signs: Last Vital Signs Temp 98.2 F 06/28/23 11:43 Pulse 80 06/28/23 11:43 Resp 20 06/28/23 11:43 BP 138/81 06/28/23 11:43 Pulse Ox 95 06/28/23 11:43 O2 Del Method Room Air 06/28/23 11:43 BMI result Body Mass Index 59.5 Const: General: cooperative, healthy appearing and comfortable Orientation/consciousness: oriented to person, oriented to place and oriented to time Neck: Carotids: no bruits Chest: Chest palpation & inspection: normal inspection of the chest and normal palpation of entire chest wall Resp: Effort & Inspection: normal respiratory effort and able to speak in complete sentences Cardio: Rate: regular rate Heart sounds: S1 normal heart sound present and S2 normal heart sound present Peripheral pulses: Peripheral pulses 2+ throughout GI: Inspection: Yes normal to inspection Skin: Other: +2 edema, right lower extremity General skin exam: dry skin Neuro: General: oriented to person, oriented to place and oriented to time Extrem: Right lower extremity: full ROM, normal capillary refill and edema Left lower extremity: full ROM, normal capillary refill and edema Psych: Mental Status: mental status grossly normal Results Labs 06/27/23 05:18 06/28/23 06:13 Labs: Abnormal lab results 06/27/23 06/27/23 06/28/23 Range/Units 16:06 19:57 06:13 POC Glucose 234 H 256 H (60-115) mg/dL Random Glucose 218 H (60-115) mg/dL 06/28/23 06/28/23 Range/Units 07:31 11:13 POC Glucose 245 H 282 H (60-115) mg/dL Random Glucose (60-115) mg/dL BMP 06/28/23 06:13 Sodium 141 Potassium 3.9 Chloride 108 Carbon Dioxide 22 BUN 11 Creatinine 0.84 Calcium 9.4 All other labs normal. Assessment and Plan (1) DVT (deep venous thrombosis): Status: Acute Plan In short patient has DVT with PE. Due to his morbid obesity and the location of the clot at the current time would recommend anticoagulation only. He is not a candidate for mechanical thrombolysis. We did discuss routine conservative measures including compression elevation and exercise. Also did discuss risk factor modification and the importance of weight loss. He does have a BMI of nearly 60. He may benefit from a Hematology-Oncology evaluation as he does have an uncle who did have a DVT and PE as well. Once again no intervention from our standpoint. We will follow on an as-needed basis. No need for follow-up with us. Thank you for allowing us to assist in his care. Time Spent With Patient Time: Total time managing care of this patient today ____ minutes. Procedures Date of Service Date of Service: 06/28/23
[2023-06-28 18:18] LABS: Homocysteine 13.4 umol/L (<11.4)
[2023-06-30 09:45] LABS: Cardiolipin IgG Ab <2.0 GPL-U/mL; Cardiolipin IgM Ab <2.0 MPL-U/mL
== END 2023-06-28 14:09 | disposition home or self-care (01) | DRG 299 ==
LOC: HO.ED 17:09 → HO.EDOVER 21:25 → HO.IMC 06-27 07:49
PROVIDERS: Nurse Practitioner Family; Physician Assistant; Physician Assistant Medical; Admitting Provider Student in an Organized Health Care Education/Training Program; Emergency Provider Emergency Medicine; PCP Physician Assistant; Visit Provider Nurse Practitioner Acute Care
DX: I82.411 Acute embolism and thrombosis of right femoral vein (principal); I26.99 Other pulmonary embolism without acute cor pulmonale; Z68.43 Body mass index [BMI] 50.0-59.9, adult; G47.33 Obstructive sleep apnea (adult) (pediatric); I82.431 Acute embolism and thrombosis of right popliteal vein; E11.65 Type 2 diabetes mellitus with hyperglycemia; E78.5 Hyperlipidemia, unspecified; I10 Essential (primary) hypertension; E66.01 Morbid (severe) obesity due to excess calories; Z91.199 Patient's noncompliance with other medical treatment and regimen due to unspecified reason; Z79.84 Long term (current) use of oral hypoglycemic drugs; Z79.899 Other long term (current) drug therapy
CPT/HCPCS: 36415; 71275; 73610; 80048; 80076; 82947; 83036; 83090; 83880; 84484; 85025; 85301; 85302; 85303; 85306; 85597; 85598; 85610; 85613; 85670; 85730; 86147; 93971; 94660; 99222; 99284; J1650; Q9967

== ENCOUNTER → 2023-06-26 20:50 | Outpatient (BNV) | payer OTHER, SELFPAY | PROVIDERS: Admitting Provider Student in an Organized Health Care Education/Training Program; Emergency Provider Emergency Medicine; PCP Physician Assistant; Visit Provider Surgery Vascular Surgery | DX: I82.409 Acute embolism and thrombosis of unspecified deep veins of unspecified lower extremity (principal) | CPT/HCPCS: 99222 ==

== ENCOUNTER → 2023-06-26 20:50 | Outpatient (BNV) | payer OTHER, SELFPAY | PROVIDERS: Admitting Provider Student in an Organized Health Care Education/Training Program; Emergency Provider Emergency Medicine; PCP Physician Assistant; Visit Provider Physician Assistant | DX: I82.409 Acute embolism and thrombosis of unspecified deep veins of unspecified lower extremity (principal) | CPT/HCPCS: 99223; 99232; 99239 ==

== ENCOUNTER → 2023-07-06 16:03 | Outpatient (BNV) | payer OTHER, SELFPAY | PROVIDERS: PCP Physician Assistant; Visit Provider Internal Medicine | DX: I26.99 Other pulmonary embolism without acute cor pulmonale (principal); Z79.01 Long term (current) use of anticoagulants | CPT/HCPCS: 99204; 99213 ==

== ENCOUNTER 2023-09-29 14:07 | Outpatient (AMB) | payer OTHER, SELFPAY ==
[2023-09-29 14:14] VITALS: BP 180/102; PULSE 76; O2SAT 98; BMI 58.3
--- NOTE | 2023-09-29 14:14 | MHC.PC.OV ---
Vital Signs 09/29/23 14:14 Height 5 ft 6 in Weight 361 lb 2 oz BMI 58.3 BP 180/102 H Blood Pressure Location Lt brachial Position Sitting Pulse 76 Pulse Source Pulse Oximeter Pulse Oximetry (%) 98 Oxygen Delivery Method Room Air Intake Visit Reasons: Annual Exam Occ Therapist Required: No Accompanied by: Self / Same As Patient Allergies empagliflozin [Jardiance] Adverse Reaction (Unknown, Verified 09/29/23 14:45) penile swelling Medication List - Last Reconciled 09/29/23 by Dhruv Frankel PA-C amlodipine 10 mg PO DAILY 90 days apixaban (Eliquis) 5 mg PO BID blood sugar diagnostic (FreeStyle Test strips) As directed comp.stocking,thigh,long,x-lrg As directed glipizide ER 5 mg PO DAILY 60 days lancets (FreeStyle Lancets) As directed metformin 1,000 mg PO BID 90 days metoprolol tartrate 100 mg PO BID 90 days simvastatin 20 mg PO BEDTIME 90 days Tobacco use date assessed: 03/15/23 Dental Screening Dental Screen Date: 09/29/23 Did you have a dental visit in the last 12 months?: No Did you have a dental problem in the last 6 months where you did not have access to dental care?: No Was dental information given to patient?: Patient has dentist HPI Annual Exam HPI Details Patient is a 53 year old male here today for a follow-up visit.? Patient has a past medical history significant for morbid obesity, hypertension, type 2 diabetes, hyperlipidemia . Concern----> recently hospitalized at [facility] for acute shortness of breath and chest pain. Was found to have bilateral PEs. He has have found to be ? unprovoked ( this is still in question). Has follow-up with Hematology whom recommends long-term anticoagulation with Eliquis. Continues to follow hematology for hercoag workup. .. Type 2 diabetes:?? Has fairly uncontrolled type 2 diabetes. Most recent A1c at 8.2 unfortunately has gained weight since last office visit. He continues on metformin and glipizide. Unfortunately remains morbidly obese. PLAN: To start Ozempic and discontinue glipizide. .. Nephrolithiasis:? Recently had kidney stone requiring urethral placement, did have his stent removed recently.? He has upcoming ultrasound follow-up with Urology, he reports he is urinating normal. .. Obesity:? He does understand his BMI is well over 30 will work on being physically active and adapting to better eating habits to reduce his weight. Obstructive sleep apnea:? Does use CPAP machine on a nightly basis.? Colon cancer screening: willing to do cologaurd Vaccines: Up-to-date with COVID vaccine, flu vaccine, and tetanus vaccine, Need PCV-20 PFSH Medical History Ureteral stent displacement Lower extremity edema ZANDER (obstructive sleep apnea) Colon cancer screening HLD (hyperlipidemia) DMII (diabetes mellitus, type 2) HTN (hypertension) Surgical History History of extraction of renal calculus History of tonsillectomy Family History Father Medical history unknown Mother Hypertension Diabetes ZANDER (obstructive sleep apnea) Stroke Brother Diabetes (Updated 09/29/23 @ 15:00 by Dhruv Frankel PA-C) Household Members: Spouse and Children Housing: House Do you presently have visiting nurse or other home services: Yes Alcohol intake: current Alcohol intake frequency: holidays/special occasions only Alcohol type: beer Patient Tobacco Use Status: Never used Tobacco e-Cigarette/Vaping Use: Never Used Second Hand Smoke Exposure: No Advance Directives Date on File: 08/05/22 service: No Current occupational status: employed Current occupational exposures/hazards: No Cognitive needs: No Hearing needs: No Vision needs: No Questionnaire Thrive Questionnaire Date Thrive assessed: 06/27/23 GOLDIE-7 AMB Questionnaire GOLDIE-7 Date GOLDIE - 7 assessed: 03/15/23 Source: Developed by Drs. Bennett Young, Bridget Jimenez, Ketan Orellana and colleagues, with an educational lissette from [employer]. Review of Systems Const Denies body aches, Denies chills, Denies excessive sweating, Denies fatigue, Denies fever(s) and Denies headache(s) Eyes Denies blurry vision ENT Denies dysphagia, Denies vertigo, Denies dizziness, Denies headache(s), Denies hearing loss and Denies tinnitus Card Denies chest pain, Denies chest pain with activity, Denies syncope, Denies irregular heart rhythm and Denies dyspnea Resp Denies chest congestion, Denies cough, Denies hemoptysis, Denies dyspnea and Denies wheezing GI Denies abdominal pain, Denies melena, Denies hematochezia, Denies coffee ground emesis, Denies dysphagia, Denies diarrhea, Denies nausea and Denies vomiting Denies difficulty urinating, Denies dysuria, Denies urinary frequency, Denies urinary hesitancy and Denies urinary urgency Musc Denies arthralgias, Denies limited range of motion, Denies muscle cramps and Denies muscle weakness Skin/Breast Denies rash and Denies skin ulcer Neuro Denies Abnormal speech present, Denies confusion, Denies vertigo, Denies dizziness, Denies syncope, Denies headache(s), Denies memory loss and Denies seizure-like activity Psych Denies anxiety, Denies confusion, Denies depression, Denies memory loss, Denies panic attacks and Denies paranoia Endo Denies excessive sweating, Denies fatigue, Denies flushing, Denies polydipsia and Denies polyuria Aller/Immun Denies wheezing Physical exam (Primary Care) Vital Signs: Last Vital Signs Pulse 76 09/29/23 14:14 BP 180/102 H 09/29/23 14:14 Pulse Ox 98 09/29/23 14:14 Oxygen Delivery Method Room Air 09/29/23 14:14 BMI result Body Mass Index 58.3 BMI Assessment/Plan discussion: High Tobacco/Smoking Status: Tobacco use Status Tobacco use date assessed 03/15/23 09/29/23 14:17 Patient Tobacco Use Status Never used Tobacco 09/29/23 15:00 e-Cigarette/Vaping Use Never Used 09/29/23 15:00 Thrive Assessment: Date of Thrive Assessment Date Thrive assessed 06/27/23 09/29/23 14:17 Const Other: Morbidly obese General: cooperative, comfortable, no acute distress, alert and awake; No confusion Orientation/consciousness: oriented to person, oriented to place, patient oriented x3 and No confusion HENMT Head: Yes normocephalic Ears: external ears normal and TM's normal bilaterally Face and sinus: No sinus tenderness Mouth: Normal oral and palatal mucosa present and tongue normal Teeth and gingiva: dentition normal and gingiva normal Throat: Yes posterior oropharynx normal, Yes tonsils normal and Yes uvula midline Eyes Conjunctivae: conjunctivae normal Sclerae: sclerae normal Pupils: Equal, round and reactive pupils present EOM: EOMs intact bilaterally Direct Ophthalmoscopy: No no photophobia Neck Neck: Yes no lymphadenopathy, No tender and Yes no JVD Thyroid: Thyroid normal Carotids: no bruits Chest Chest palpation & inspection: no tenderness Resp Effort & Inspection: normal respiratory effort, no audible wheezes, not labored and no stridor Auscultation: no crackles, no rales, no rhonchi and no wheezes Cardio Jugular venous distension: no JVD Rate: regular rate, not bradycardic and not tachycardic Rhythm: regular rhythm Bruits: no carotid bruits Peripheral pulses: Peripheral pulses 2+ throughout GI Inspection: Yes normal to inspection, No abdominal wall ecchymosis and No visible herniation Palpation (GI): Soft to palpation, nontender, no guarding, not rigid and No hepatosplenomegaly present Auscultation: normoactive bowel sounds General: Yes no CVA tenderness Back/Spine/Pelvis Back: no CVA tenderness and No back tenderness Cervical Spine: cervical ROM normal Thoracic/Lumbar Spine: thoracic and lumbar spine normal to inspection, straight leg raise negative bilaterally, No thoraco-lumbar ROM limited and No lumbar spinal tenderness Skin Lesions: no lesions Rashes: no rashes Wounds: no wounds Neuro General: oriented to person, oriented to place, patient oriented x3, CN's II-XI intact bilaterally and No confusion Cranial nerves: Yes Equal, round and reactive pupils present and Yes Normal accommodation reflex present Cognition (Neuro): normal cognition Speech: No Abnormal speech present Gait exam (Neuro): Normal gait present Motor exam (neuro): 5/5 motor strength present throughout Extrem Right upper extremity: full ROM; no cyanosis Left upper extremity: full ROM; no cyanosis Right lower extremity: no edema Left lower extremity: no edema Psych Appearance: grossly normal Mental Status: mental status grossly normal Affect: normal affect Attitude: cooperative Thought process: Normal thought process present Immunizations pneumoc 20-hema conj-dip cr(PF) 0.5 mL IM syringe Performing Provider: Dhruv Frankel PA-C Performing Location: [facility] Administered by: ROSAURA Brown on 09/29/23 15:31 Dose Route Admin Location Dispensed Lot Number Expiration Date NDC Washing Machine Striper 0.5 mL IM Right Deltoid 0.5 mL [id number] 06/07/24 8343-5112-30 [employer] VIS Given Date VIS Provided VIS Publication Date 09/29/23 Single Vaccine 21 Eligibility Eligibility Date Funding Source Not VF Eligible 09/29/23 Private Assessment and Plan Assessment & Plan (1) Annual physical exam: Code(s): Z00.00 - Encounter for general adult medical examination without abnormal findings (2) DMII (diabetes mellitus, type 2): Code(s): E11.9 - Type 2 diabetes mellitus without complications Qualifiers: Diabetes mellitus complication status: with hyperglycemia Diabetes mellitus fdc insulin use: without manager terminal use Qualified Code(s): E11.65 - Type 2 diabetes mellitus with hyperglycemia Plan: Patient's type 2 diabetes suboptimally controlled, today's A1c is 7.8 from 10.2. Continues on metformin and glipizide. He has started to go to the gym with his daughter and anticipates some weight loss which would likely help his diabetes. Goal A1c to be below 7.0 (3) Morbid obesity: Code(s): E66.01 - Morbid (severe) obesity due to excess calories Plan: Patient does understand his BMI is over 50 and work on being more physically active and adapting to better eating habits to reduce his weight (4) HLD (hyperlipidemia): Code(s): E78.5 - Hyperlipidemia, unspecified Qualifiers: Hyperlipidemia type: unspecified Qualified Code(s): E78.5 - Hyperlipidemia, unspecified Plan: Patient continues on simvastatin 20 mg without any side effect. Most recent lipid panel acceptable. Will continue to follow with goal LDL to be below 100 (5) HTN (hypertension): Code(s): I10 - Essential (primary) hypertension Qualifiers: Hypertension type: primary hypertension Qualified Code(s): I10 - Essential (primary) hypertension Plan: Patient's blood pressure elevated today in office . He will continue his current antihypertensive medication doses with goal blood pressure be below 140/90. Advised on low-sodium diet as well. (6) Pulmonary embolism, bilateral: Code(s): I26.99 - Other pulmonary embolism without acute cor pulmonale Plan: Continues to follow hematology. DVT and PEs are question to be a provoked. Now getting hypercoagulable workup. Will continue on Eliquis for now. (7) Lesion of nose: Code(s): J34.89 - Other specified disorders of nose and nasal sinuses Plan: Continues to have concerning lesion on his nose. Awaiting dermatology evaluation. Will place another referral status so that we can get him seen soon. Orders: Orders Pneumococcal 20 Immunization 09/29/23 Z23 - Encounter for immunization Referrals Dermatology Referral J34.89 - Other specified disorders of nose and nasal sinuses Medications: New semaglutide (Ozempic) 0.5 mg (0.736 mL) subcut QWEEK 4 weeks 3 mL 1RF E11.65 - Type 2 diabetes mellitus with hyperglycemia lisinopril-hydrochlorothiazide 10-12.5 mg 1 tab PO DAILY 30 days 30 tabs 3RF I10 - Essential (primary) hypertension Coding Level of Care Code Est Pt Prev Care 40-64y(69213) Diagnoses Annual physical exam Z00.00 Type 2 diabetes mellitus with hyperglycemia, without long-term current use of insulin E11.65 Diabetes mellitus complication status: with hyperglycemia Diabetes mellitus fdc insulin use: without manager terminal use Morbid obesity E66.01 Hyperlipidemia, unspecified hyperlipidemia type E78.5 Hyperlipidemia type: unspecified Primary hypertension I10 Hypertension type: primary hypertension Pulmonary embolism, bilateral I26.99 Lesion of nose J34.89
== END 2023-09-29 15:18 | disposition home or self-care (01) ==
PROVIDERS: Visit Provider Physician Assistant
DX: Z23 Encounter for immunization (principal)
CPT/HCPCS: 90471; 90677; 99396

== ENCOUNTER 2023-11-29 11:11 | Outpatient (REF) | payer OTHER, SELFPAY ==
[2023-11-29 11:51] LABS: Hematocrit 45.9 % (42.0-52.0); Hemoglobin 14.4 g/dl (14.0-18.0); Mean Corpuscular HGB Conc 31.4 g/dl (31.0-36.0); Mean Corpuscular Hemoglobin 28.3 pg (27.0-33.0); Mean Corpuscular Volume 90.4 fL (80.0-98.0); Mean Platelet Volume 11.7 fL (9.4-12.4); Platelet Count 148 X10*3/uL (160-400); Red Blood Count 5.08 X10*6/uL (4.60-5.80); Red Cell Distribution Width 13.7 % (11.0-16.0); White Blood Count 7.8 X10*3/uL (4.8-10.8)
[2023-11-29 12:45] LABS: Alanine Aminotransferase 28 U/L (0-40); Albumin Level 4.2 g/dL (3.5-5.0); Alkaline Phosphatase 135 U/L (39-117); Anion Gap 20 (12-20); Aspartate Amino Transferase 23 U/L (5-37); Bilirubin Total 0.4 mg/dL (0.0-1.0); Blood Urea Nitrogen 19 mg/dL (9-16); Calcium 9.3 mg/dL (8.4-10.2); Carbon Dioxide 19 mmol/L (22-29); Chloride 109 mmol/L (96-108); Cholesterol 197 mg/dL (<200); Estimated Glomerular Filt Rate > 60; Glucose Fasting 246 mg/dL (60-99); HDL Cholesterol 53 mg/dL (>40); LDL Cholesterol Calculated 73 mg/dL (<100); Sodium 143 mmol/L (135-145); TSH reflex Free T4 1.54 uIU/mL (0.32-4.0); Total Protein 7.2 g/dL (6.5-8.0); Triglycerides 358 mg/dL (<150)
[2023-11-29 14:21] LABS: Creatinine Urine 132.44 mg/dL; Microalbum/Creatinine Ratio Ur 129.1 ug/mg cr (<30)
== END 2023-11-29 11:12 | disposition home or self-care (01) ==
LOC: HO.LAB 11:11
PROVIDERS: PCP Physician Assistant; Visit Provider Physician Assistant
DX: I10 Essential (primary) hypertension (principal); E11.65 Type 2 diabetes mellitus with hyperglycemia; E78.5 Hyperlipidemia, unspecified
CPT/HCPCS: 36415; 80053; 80061; 82043; 82570; 84443; 85027

== ENCOUNTER 2023-11-29 15:25 | Outpatient (AMB) | payer OTHER, SELFPAY ==
[2023-11-29 15:49] VITALS: BP 130/78; PULSE 70; O2SAT 100; BMI 55.1
--- NOTE | 2023-11-29 15:49 | A.OFFPC_ITS ---
Vital Signs 11/29/23 15:49 Height 5 ft 6 in Weight 341 lb 6 oz BMI 55.1 BP 130/78 Blood Pressure Location Lt brachial Position Sitting Pulse 70 Pulse Source Pulse Oximeter Pulse Oximetry (%) 100 Oxygen Delivery Method Room Air Intake Visit Reasons: f/u DMII Intake Note: Patient is here to follow up on DMII. 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 Accompanied by: Self / Same As Patient Allergies empagliflozin [Jardiance] Adverse Reaction (Unknown, Verified 11/29/23 16:06) penile swelling Medication List - Last Reconciled 11/29/23 by Dhruv Frankel PA-C amlodipine 10 mg PO DAILY 90 days apixaban (Eliquis) 5 mg PO BID blood sugar diagnostic (FreeStyle Test strips) As directed comp.stocking,thigh,long,x-lrg As directed lancets (FreeStyle Lancets) As directed lisinopril-hydrochlorothiazide 10-12.5 mg 1 tab PO DAILY 30 days metformin 1,000 mg PO BID 90 days metoprolol tartrate 100 mg PO BID 90 days semaglutide (Ozempic) 0.5 mg (0.736 mL) subcut QWEEK 4 weeks simvastatin 20 mg PO BEDTIME 90 days Tobacco use date assessed: 11/29/23 Dental Screening Dental Screen Date: 11/29/23 Did you have a dental visit in the last 12 months?: No Did you have a dental problem in the last 6 months where you did not have access to dental care?: No Was dental information given to patient?: Patient has dentist HPI f/u DMII HPI Details Patient is a 53 year old male here today for a follow-up visit.? Patient has a past medical history significant for morbid obesity, hypertension, type 2 diabetes, DVT/ PE, hyperlipidemia . Concern----> .. Type 2 diabetes:? Was recently started Ozempic. Has lost weight and has been feeling better. Fortunately diabetes still suboptimally controlled. PLAN: ?Ozempic medication much too expensive with pt coverage for medication thus will transition to alternative Trulicity .. PE and DVT: Unclear if patient is thromboembolism was provoked. Has followed up with Hematology whom recommend staying on anticoagulation for the tank terminal gauger. .. Obesity:? Has noted weight loss with GLP 1. He does understand his BMI is well over 30 will work on being physically active and adapting to better eating habits to reduce his weight. [facility] Medical History Ureteral stent displacement Lower extremity edema ZANDER (obstructive sleep apnea) Colon cancer screening HLD (hyperlipidemia) DMII (diabetes mellitus, type 2) HTN (hypertension) Surgical History History of extraction of renal calculus History of tonsillectomy Family History Father Medical history unknown Mother Hypertension Diabetes ZANDER (obstructive sleep apnea) Stroke Brother Diabetes Social History Household Members: Spouse and Children Housing: House Do you presently have visiting nurse or other home services: Yes Alcohol intake: current Alcohol intake frequency: holidays/special occasions only Alcohol type: beer Patient Tobacco Use Status: Never used Tobacco e-Cigarette/Vaping Use: Never Used Second Hand Smoke Exposure: No Advance Directives Date on File: 08/05/22 service: No Current occupational status: employed Current occupational exposures/hazards: No Cognitive needs: No Hearing needs: No Vision needs: No Questionnaire PHQ-9 Over the last 2 weeks, how often have you been bothered by any of the following problems? 1. Little interest or pleasure in doing things: not at all 2. Feeling down, depressed, or hopeless: not at all 3. Trouble falling or staying asleep, or sleeping too much: not at all 4. Feeling tired or having little energy: not at all 5. Poor appetite or overeating: not at all 6. Feeling bad about yourself - or that you are a failure or have let yourself or your family down: not at all 7. Trouble concentrating on things, such as reading the newspaper or watching television: not at all 8. Moving or speaking so slowly that other people could have noticed. Or the opposite - being so fidgety or restless that you have been moving around a lot more than usual: not at all 9. Thoughts that you would be better off or of hurting yourself in some way: not at all Total score: 0 Depression Screening Interpretation: Negative Depression Screening Done: Yes 66118 - PHQ-9 Billing: Yes Source: Developed by Drs. Bennett Young, Ketan Funes and colleagues, with an educational lissette from [employer]. Thrive Questionnaire Date Thrive assessed: 11/29/23 I am a: Patient What is your living situation today?: I have a steady place to live Within the past 12 months, did the food you bought not last and you didn't have the money to get more?: Never true Within the past 12 months, did you worry whether your food would run out before you got money to buy more?: Never true Do you have trouble paying for medicines?: No Do you have trouble getting transportation to medical appointments?: No Do you have trouble paying your heating and electricity bill?: No Do you have trouble taking care of your child, family member or friend?: No Do you have trouble with day-to-day activities such as bathing, preparing meals, shopping, managing finances, etc.?: No Are you currently unemployed and looking for a job?: No Are you interested in more education?: No Please select the resources that you would like help with: None Currently or been in a relationship where the following occur: no concerns reported THRIVE Score: 0 AUDIT C Alcohol Use Questionnaire (AUDIT-C) 1. How often do you have a drink containing alcohol?: Never Total Score: 0 GOLDIE-7 AMB Questionnaire GOLDIE-7 Date GOLDIE - 7 assessed: 11/29/23 Feeling nervous, anxious, or on edge: 0 = Not at all Not being able to stop or control worryin = Not at all Worrying too much about different things: 0 = Not at all Trouble relaxin = Not at all Being so restless that it is hard to sit still: 0 = Not at all Becoming easily annoyed or irritable: 0 = Not at all Feeling afraid as if something awful might happen: 0 = Not at all Total GOLDIE-7 score (0-4 normal; 5-9 mild; 10-14 moderate; 15-21 severe): 0 Source: Developed by Drs. Bennett Young, Ketan Funes and colleagues, with an educational lissette from [employer]. GOLDIE-7 Assessment Billing GOLDIE-7 Assessment Tool: GODLIE-7 Assessment 90522 Review of Systems Const Denies headache(s) Eyes Denies loss of vision ENT Denies vertigo, Denies dizziness, Denies headache(s) and Denies sore throat Card Denies chest pain, Denies leg edema and Denies lightheadedness Resp Denies cough, Denies hemoptysis and Denies wheezing GI Denies abdominal pain, Denies melena, Denies constipation, Denies diarrhea and Denies vomiting Denies dysuria, Denies urinary frequency and Denies urinary urgency Musc Denies arthralgias, Denies joint swelling, Denies numbness and Denies tingling Neuro Denies Abnormal speech present, Denies behavioral changes, Denies vertigo, Denies dizziness, Denies headache(s), Denies loss of vision, Denies memory loss, Denies numbness and Denies tingling Psych Denies anxiety, Denies behavioral changes, Denies depression, Denies memory loss and Denies panic attacks [place]/Lymph Denies easy bleeding and Denies easy bruising Aller/Immun Denies wheezing Physical exam (Primary Care) Vital Signs: Last Vital Signs Pulse 70 11/29/23 15:49 BP 130/78 11/29/23 15:49 Pulse Ox 100 11/29/23 15:49 Oxygen Delivery Method Room Air 11/29/23 15:49 BMI result Body Mass Index 55.1 BMI Assessment/Plan discussion: High Tobacco/Smoking Status: Tobacco use Status Tobacco use date assessed 11/29/23 11/29/23 15:52 Patient Tobacco Use Status Never used Tobacco 11/29/23 15:52 e-Cigarette/Vaping Use Never Used 11/29/23 15:52 PHQ-9: PHQ-9 Score PHQ-9: Total score 0 11/29/23 16:08 Depression Screening Interpretation: Negative Thrive Assessment: Date of Thrive Assessment Date Thrive assessed 11/29/23 11/29/23 15:57 Currently or been in a relationship where the following occur: no concerns reported Const General: healthy appearing, no acute distress, alert and awake Nutritional Appearance: well nourished Orientation/consciousness: oriented to person, oriented to place and oriented to time HENMT Ears: TM's normal bilaterally General nose exam: Normal nasal mucous membranes and turbinates present Eyes Conjunctivae: conjunctivae normal Sclerae: sclerae normal Pupils: Equal, round and reactive pupils present Neck Neck: Yes no lymphadenopathy and Yes no JVD Thyroid: Thyroid normal Carotids: no bruits Resp Effort & Inspection: normal respiratory effort and not tachypneic Auscultation: no crackles, no rales, no rhonchi and no wheezes Cardio Rate: regular rate Rhythm: regular rhythm Heart sounds: no murmurs and normal S1 and S2 GI Palpation (GI): Soft to palpation, nontender, no hepatomegaly and no splenomegaly Auscultation: normal bowel sounds Skin General skin exam: no rashes or lesions noted and dry skin Neuro General: oriented to person, oriented to place and oriented to time Cranial nerves: Yes Equal, round and reactive pupils present Speech: No Abnormal speech present Gait exam (Neuro): Normal gait present Motor exam (neuro): no tremor noted Extrem Right upper extremity: full ROM Left upper extremity: full ROM Right lower extremity: full ROM; no edema Left lower extremity: full ROM; no edema Psych Mental Status: mental status grossly normal Speech and movement: Normal speech and movement present Affect: normal affect Attitude: cooperative Thought process: Normal thought process present Results AMB Hemoglobin A1c AMB Hemoglobin A1c 9.3 % Last Edit by ROSAURA Brown on 11/29/23 16:01 Results Reviewed Results Reviewed: Laboratory Last Values Hgb A1c (Clinic) 9.3 % (4.0-6.0) H 11/29/23 15:41 Assessment and Plan Assessment & Plan (1) DMII (diabetes mellitus, type 2): Code(s): E11.9 - Type 2 diabetes mellitus without complications Qualifiers: Diabetes mellitus complication status: with hyperglycemia Diabetes mellitus tank terminal gauger insulin use: without tank terminal gauger use Qualified Code(s): E11.65 - Type 2 diabetes mellitus with hyperglycemia Plan: Type 2 diabetes still remains of suboptimally controlled He is now of glyburide. Has started Ozempic and has noted weight loss though diabetes still suboptimally controlled. He will try to implement more of a diabetic diet. Unfortunately Ozempic much too expensive for patient thus will try alternative Trulicity (2) Pulmonary embolism, bilateral: Code(s): I26.99 - Other pulmonary embolism without acute cor pulmonale (3) DVT (deep venous thrombosis): Code(s): I82.409 - Acute embolism and thrombosis of unspecified deep veins of unspecified lower extremity Qualifiers: DVT location: lower extremity Affected thrombotic vein of extremity: popliteal Chronicity: chronic Laterality: right Qualified Code(s): I82.531 - Chronic embolism and thrombosis of right popliteal vein Plan: Unclear if provoked DVT. Does have a family history of blood clots. Has followed up with Hematology in recommends long-term anticoagulation (4) Morbid obesity: Code(s): E66.01 - Morbid (severe) obesity due to excess calories Plan: Patient does understand his BMI is well above 50 and will work on trying to be more physically active and adapting to better eating habits to reduce his weight. Orders: Orders AMB Hemoglobin A1c 11/29/23 E11.9 - Type 2 diabetes mellitus without complications Medications: New pioglitazone (Actos) 15 mg PO DAILY 90 days 90 tabs 1RF E11.65 - Type 2 diabetes mellitus with hyperglycemia On Hold semaglutide (Ozempic) Hold Comment: Doctor's Order 0.5 mg (0.736 mL) subcut QWEEK 4 weeks 3 mL 1RF E11.65 - Type 2 diabetes mellitus with hyperglycemia Coding Level of Care Code Est Pt Level 4 (90597) Diagnoses Type 2 diabetes mellitus with hyperglycemia, without long-term current use of insulin E11.65 Diabetes mellitus complication status: with hyperglycemia Diabetes mellitus care home insulin use: without tank terminal gauger use Pulmonary embolism, bilateral I26.99 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
== END 2023-11-29 16:37 | disposition home or self-care (01) ==
PROVIDERS: PCP Physician Assistant; Visit Provider Physician Assistant
DX: E11.9 Type 2 diabetes mellitus without complications (principal)
CPT/HCPCS: 83036; 99214

== ENCOUNTER 2024-06-22 10:22 | Emergency (ER) | payer OTHER, SELFPAY ==
--- NOTE | ~2024-06-22 | XR_ITS ---
EXAMINATION: XR ANKLE, RIGHT XR FOOT, RIGHT CLINICAL INFORMATION: Pain. COMPARISON: Right ankle radiographs dated 06/26/2023. TECHNIQUE: AP, lateral, and mortise views of the right foot and right ankle were obtained. FINDINGS: No acute fracture or dislocation. The ankle mortise is maintained. Normal tarsal alignment. No joint space narrowing or marginal osteophytes. No osseous erosion. No talar osteochondral lesion. Plantar and dorsal calcaneal enthesophytes. Os naviculare. Prominent circumferential soft tissue swelling. XR/XR ankle RT min 3V IMPRESSION: 1. Prominent circumferential soft tissue swelling without acute osseous abnormality. 2. Plantar and dorsal calcaneal spurs.
--- NOTE | ~2024-06-22 | XR_ITS ---
EXAMINATION: XR ANKLE, RIGHT XR FOOT, RIGHT CLINICAL INFORMATION: Pain. COMPARISON: Right ankle radiographs dated 06/26/2023. TECHNIQUE: AP, lateral, and mortise views of the right foot and right ankle were obtained. FINDINGS: No acute fracture or dislocation. The ankle mortise is maintained. Normal tarsal alignment. No joint space narrowing or marginal osteophytes. No osseous erosion. No talar osteochondral lesion. Plantar and dorsal calcaneal enthesophytes. Os naviculare. Prominent circumferential soft tissue swelling. XR/XR foot RT min 3V IMPRESSION: 1. Prominent circumferential soft tissue swelling without acute osseous abnormality. 2. Plantar and dorsal calcaneal spurs.
[2024-06-22 10:38] VITALS: BP 143/74; PULSE 67; RESP 16; TEMP 36.4; O2SAT 96; BMI 56.7
--- NOTE | 2024-06-22 11:12 | ED.LOWEXIN ---
HPI - Extremity Injury (Lower) General Chief Complaint: Extremity Injury, Lower Stated Complaint: r foot pain Time Seen by Provider: 06/22/24 11:11 Source: patient Mode of arrival: ambulatory Limitations: no limitations History of Present Illness HPI Narrative: 54-year-old male with a past medical history of DVT and PE on Eliquis presents to the emergency department with complaints erythema and pain to the lateral right foot for the past 10 days. He reports pain is increased with weight-bearing and ambulation. He denies any trauma to the foot or ankle. He denies any fevers, chills, or paresthesias Pertinent positives and negatives discussed in HPI Related Data Previous Rx's ?Medication ?Instructions ?Recorded blood sugar diagnostic (FreeStyle #100 ea 09/18/20 Test strips) comp.stocking,thigh,long,x-lrg #2 ea 09/18/20 lancets 28 gauge (FreeStyle #100 ea 09/18/20 Lancets) apixaban 5 mg tablet (Eliquis) 5 mg PO BID #180 tabs 08/11/23 simvastatin 20 mg tablet 20 mg PO BEDTIME 90 days #90 tabs 10/13/23 semaglutide 0.25 mg or 0.5 mg (2 0.5 mg (0.736 mL) subcut QWEEK 4 11/04/23 mg/3 mL) subcutaneous pen injector weeks #3 mL (Ozempic) dulaglutide 1.5 mg/0.5 mL 1.5 mg (0.5 mL) subcut QWEEK 4 11/30/23 subcutaneous pen injector weeks #2 mL (Trulicity) lisinopril 10 1 tab PO DAILY 30 days #30 tabs 03/13/24 mg-hydrochlorothiazide 12.5 mg tablet pioglitazone 15 mg tablet (Actos) 15 mg PO DAILY 90 days #90 tabs 03/13/24 amlodipine 10 mg tablet 10 mg PO DAILY 90 days #90 tabs 04/21/24 metformin 1,000 mg tablet 1,000 mg PO BID 90 days #180 tabs 04/21/24 metoprolol tartrate 100 mg tablet 100 mg PO BID 90 days #180 tabs 04/21/24 colchicine 0.6 mg tablet (Colcrys) 0.6 mg PO DAILY #14 tabs 06/22/24 Allergies Allergy/AdvReac Type Severity Reaction Status Date / Time empagliflozin [Jardiance] AdvReac Unknown penile Verified 06/22/24 10:42 swelling Review of Systems Review of Systems: Yes all other systems are reviewed and are negative [facility] Past Medical History Medical History Ureteral stent displacement Lower extremity edema ZANDER (obstructive sleep apnea) Colon cancer screening HLD (hyperlipidemia) DMII (diabetes mellitus, type 2) HTN (hypertension) Surgical History History of extraction of renal calculus History of tonsillectomy Family History Family History Father Medical history unknown Mother Hypertension Diabetes ZANDER (obstructive sleep apnea) Stroke Brother Diabetes Social History Social History Household Members: Spouse and Children Housing: House Do you presently have visiting nurse or other home services: Yes Alcohol intake: current Alcohol intake frequency: holidays/special occasions only Alcohol type: beer Patient Tobacco Use Status: Never used Tobacco e-Cigarette/Vaping Use: Never Used Second Hand Smoke Exposure: No Advance Directives: Yes Advance Directives on File: Yes Advance Directives Date on File: 08/05/22 service: No Current occupational status: employed Current occupational exposures/hazards: No Cognitive needs: No Hearing needs: No Vision needs: No Physical Exam Vital Signs: Vital Signs: Last Vital Signs Temp 97.6 F 06/22/24 10:38 Pulse 67 06/22/24 10:38 Resp 16 06/22/24 10:38 BP 143/74 H 06/22/24 10:38 Pulse Ox 96 06/22/24 10:38 O2 Del Method Room Air 06/22/24 10:38 BMI result Body Mass Index 56.7 Nursing notes and vital signs reviewed. GENERAL APPEARANCE: A&0 x 4, generally well appearing, no acute distress HENMT: Normal to inspection, atraumatic, face symmetrical. Normal external ears, nose, and oropharynx clear. EYE: PERRLA, EOM intact, structures appear normal NECK: Supple without stiffness or restricted ROM. HEART: Normal rate and regular rhythm, normal S1/S2, no M/R/G LUNGS: LS CTA, moving air well. Able to speak in complete sentences. No crackles, wheezes, or rhonchi auscultated BACK: No CVAT, no obvious deformity EXTREMITIES: Moving all extremities without difficulty. Normal capillary refill. NEUROLOGICAL: Alert and oriented, moving all 4 extremities with equal strength. CN not formally tested but appearing grossly intact. Observed to ambulate with normal gait. Cognition normal SKIN: Warm and dry without any lesions, rash, or visible sores Extrem: Ankle/foot/toe images: 1. Erythema Medical Decision Making Medical Decision Making [facility] Narrative: Old records reviewed for previous imaging, lab studies, ECGs, and notes. Patient was assessed the emergency department with no acute distress or toxicity noted. X-ray right ankle and foot completed, which I have independently interpreted as negative for acute fractures. Blood work unremarkable for infection. Uric acid levels elevated and patient's symptoms are consistent with gout. Colchicine since the patient's preferred pharmacy for further management. Patient is safe for discharge at this time with plan for [id number] Tylenol for fever/discomfort with dosing as per packaging. HPI, PE, diagnostics, and plan discussed with patient and family with no unanswered questions at this time. Strict return precautions given to return to the emergency department with new, worsening, or concerning emergent symptoms. Recommended to follow-up with there primary care provider in 24-48 hours for further treatment and management. Differential Diagnosis Differential Diagnoses: The differential diagnosis associated with the presentation includes But not limited to fracture, dislocation, strain, sprain, contusion, gout, abscess, cellulitis Lab Data [facility] Lab Attestation statement: I reviewed the patient's lab results. 06/22/24 11:21 06/22/24 11:21 Labs: Lab Results 06/22/24 06/22/24 Range/Units 11:21 11:44 WBC 7.5 (4.8-10.8) X10*3/uL RBC 4.27 L (4.60-5.80) X10*6/uL Hgb 12.4 L (14.0-18.0) g/dl Hct 37.6 L (42.0-52.0) % MCV 88.1 (80.0-98.0) fL MCH 29.0 (27.0-33.0) pg MCHC 33.0 (31.0-36.0) g/dl RDW 13.3 (11.0-16.0) % Plt Count 276 D (160-400) X10*3/uL MPV 10.1 (9.4-12.4) fL Immature Gran % (Auto) 1.1 H (0.0-0.4) % Neut % (Auto) 67.7 (45-73) % Lymph % (Auto) 22.0 (20-40) % [place] % (Auto) 7.5 (2-11) % Eos % (Auto) 1.2 (0-4) % Baso % (Auto) 0.5 (0-2) % Lymph # (Auto) 1.6 (1.2-4.9) X10*3/uL [place] # (Auto) 0.6 (0.1-1.2) X10*3/uL Eos # (Auto) 0.1 (0.0-0.4) X10*3/uL Baso # (Auto) 0.0 (0.0-0.2) X10*3/uL Abs Immat Gran (auto) 0.08 H (0.00-0.03) X10*3/uL Absolute Neuts (auto) 5.1 (2.0-8.3) x10*3/uL Absolute Nucleated RBC 0.000 (0.0-0.012) X10*3/uL Nucleated RBC % (auto) 0.0 (0.0-0.2) /100WBC PT 12.4 (11.1-13.3) SEC INR 1.0 (0.9-1.1) Sodium 140 (135-145) mmol/L Potassium 5.3 H (3.3-5.1) mmol/L Chloride 105 (96-108) mmol/L Carbon Dioxide 25 (22-29) mmol/L Anion Gap 15 (12-20) BUN 20 H (9-16) mg/dL Creatinine 1.20 (0.5-1.4) mg/dL Estim Creat Clear Calc 98.2 Estimated GFR > 60 Random Glucose 311 H (60-115) mg/dL Uric Acid 10.6 H (3.4-7.0) mg/dL Calcium 8.9 (8.4-10.2) mg/dL Total Bilirubin 0.5 (0.0-1.0) mg/dL AST 23 (5-37) U/L ALT 22 (0-40) U/L Alkaline Phosphatase 181 H (39-117) U/L Total Protein 7.4 (6.5-8.0) g/dL Albumin 4.1 (3.5-5.0) g/dL Independent Interpretation I performed an independent interpretation of an: Plain X-Ray Independent Historian Clinical information obtained from an independent historian. History obtained from or confirmed by: Spouse External Record Review External record reviewed: Prior outpatient labs and Prior outpatient radiology Prescription Management Narcotic pain medication was considered, however; based on exam, side effects, and high-risk of addiction was deemed necessary at this time. Antibiotics were also considered, however; no evidence bacterial infection was noted at this time. Chronic Conditions Patient?s care impacted by: Diabetes and Hypertension Hyperlipidemia, ZANDER, obesity, DVT, PE Discharge Plan Discharge Clinical Impression: Gout, Hyperglycemia due to type 2 diabetes mellitus Patient Disposition: Home, Self-Care Instructions: Low Purine Diet (ED), Gout (ED), Diabetic Hyperglycemia (ED), Swollen Ankle Joint (ED), Type 2 Diabetes Management for Adults (ED) Prescriptions: New colchicine [Colcrys] 0.6 mg tablet 0.6 mg PO DAILY Qty: 14 0RF No Action simvastatin 20 mg tablet 20 mg PO BEDTIME 90 Days Qty: 90 1RF Ozempic 0.25 mg or 0.5 mg (2 mg/3 mL) pen injector 0.5 mg subcut QWEEK 28 Days Qty: 3 1RF Hold Instructions: Doctor's Order Trulicity 1.5 mg/0.5 mL pen injector 1.5 mg subcut QWEEK 28 Days Qty: 2 1RF lisinopril-hydrochlorothiazide 10-12.5 mg tablet 1 tab PO DAILY 30 Days Qty: 30 6RF pioglitazone [Actos] 15 mg tablet 15 mg PO DAILY 90 Days Qty: 90 2RF metoprolol tartrate 100 mg tablet 100 mg PO BID 90 Days Qty: 180 1RF metformin 1,000 mg tablet 1,000 mg PO BID 90 Days Qty: 180 1RF amlodipine 10 mg tablet 10 mg PO DAILY 90 Days Qty: 90 1RF Eliquis 5 mg Tablet 5 mg PO BID Qty: 180 3RF (DME) FreeStyle Test Strip See Rx Instructions .ROUTE .MEDSUPPLY Qty: 100 0RF Rx Instructions: As directed (DME) lancets [FreeStyle Lancets] 28 gauge misc See Rx Instructions .ROUTE .MEDSUPPLY Qty: 100 0RF Rx Instructions: As directed (DME) comp.stocking,thigh,long,x-lrg Misc See Rx Instructions .ROUTE .MEDSUPPLY Qty: 2 0RF Rx Instructions: As directed Referrals: Dhruv Frankel PA-C [Primary Care Provider] - Stand Alone Forms: Work/School Release Print Language: Nam[place]ian
[2024-06-22 11:26] LABS: MANUAL DIFF FLAG NO
[2024-06-22 11:27] LABS: Basophils Percent Auto 0.5 % (0-2); Eosinophils Absolute Auto 0.1 X10*3/uL (0.0-0.4); Eosinophils Percent Auto 1.2 % (0-4); Hematocrit 37.6 % (42.0-52.0); Hemoglobin 12.4 g/dl (14.0-18.0); Imm Gran Abs Auto 0.08 X10*3/uL (0.00-0.03); Imm Gran Pct Auto 1.1 % (0.0-0.4); Lymphocytes Absolute Auto 1.6 X10*3/uL (1.2-4.9); Mean Corpuscular Volume 88.1 fL (80.0-98.0); Mean Platelet Volume 10.1 fL (9.4-12.4); Monocytes Absolute Auto 0.6 X10*3/uL (0.1-1.2); Monocytes Percent Auto 7.5 % (2-11); Neutrophils Absolute Auto 5.1 x10*3/uL (2.0-8.3); Neutrophils Percent Auto 67.7 % (45-73); Platelet Count 276 X10*3/uL (160-400); Red Blood Count 4.27 X10*6/uL (4.60-5.80); Red Cell Distribution Width 13.3 % (11.0-16.0); White Blood Count 7.5 X10*3/uL (4.8-10.8)
[2024-06-22 11:44] LABS: Alanine Aminotransferase 22 U/L (0-40); Albumin Level 4.1 g/dL (3.5-5.0); Alkaline Phosphatase 181 U/L (39-117); Anion Gap 15 (12-20); Aspartate Amino Transferase 23 U/L (5-37); Bilirubin Total 0.5 mg/dL (0.0-1.0); Blood Urea Nitrogen 20 mg/dL (9-16); Calcium 8.9 mg/dL (8.4-10.2); Carbon Dioxide 25 mmol/L (22-29); Chloride 105 mmol/L (96-108); Creatinine Clr Calc Pharmacy 98.2; Estimated Glomerular Filt Rate > 60; Glucose Random 311 mg/dL (60-115); Potassium 5.3 mmol/L (3.3-5.1); Sodium 140 mmol/L (135-145); Total Protein 7.4 g/dL (6.5-8.0)
[2024-06-22 11:54] LABS: Prothrombin Time 12.4 SEC (11.1-13.3)
[2024-06-22 12:57] LABS: Uric Acid 10.6 mg/dL (3.4-7.0)
[2024-06-22] MEDS: Colchicine 0.6 MG TABLET 1.2 MG PO (13:24)
[2024-06-22 13:25] VITALS: BP 151/80; PULSE 62; RESP 18; TEMP 36.6; O2SAT 100
== END 2024-06-22 13:29 | disposition home or self-care (01) ==
PROVIDERS: Emergency Provider Emergency Medicine; PCP Physician Assistant
DX: M10.071 Idiopathic gout, right ankle and foot (principal); E11.65 Type 2 diabetes mellitus with hyperglycemia; M79.671 Pain in right foot; Z79.4 Long term (current) use of insulin; Z51.81 Encounter for therapeutic drug level monitoring; Z79.899 Other long term (current) drug therapy
CPT/HCPCS: 36415; 73610; 73630; 80053; 84550; 85025; 85610; 99282; 99283

== ENCOUNTER 2024-07-20 15:24 | Outpatient (AMB) | payer OTHER, SELFPAY ==
--- NOTE | 2024-07-20 15:26 | A.OFFVIS_ITS ---
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 Says he has not been following his diet. Now committed to doing so. HbA1C 9.3% in November, 10.9% today. Micro/macrovascular complications: Denies hypoglycemia Denies polyuria, polydipsia ROS CONSTITUTIONAL: Denies weight loss, fever and chills. HEENT: Denies changes in vision and hearing. RESPIRATORY: Denies SOB and cough. CV: Denies palpitations and CP GI: Denies abdominal pain, nausea, vomiting and diarrhea. : Denies dysuria and urinary frequency. MSK: Denies new myalgia and joint pain. SKIN: Denies rash and pruritus. NEUROLOGICAL: Denies headache PSYCHIATRIC: Denies recent changes in mood. PHYSICAL EXAM: GENERAL: Alert and oriented x 3. NAD EYES: EOMI. Anicteric. HENT: Moist mucous membranes. No scleral icterus. No cervical lymphadenopathy. LUNGS: Clear to auscultation bilaterally. CARDIOVASCULAR: Regular rate and rhythm. No murmur. No JVD. ABDOMEN: Soft, non-tender +bs EXTREMITIES: No edema. Non-tender. SKIN: No rashes or lesions. Warm. NEUROLOGIC: No focal neurological deficits. CN II-XII grossly intact PSYCHIATRIC: Cooperative. Appropriate mood and affect [facility] Medical History Ureteral stent displacement Lower extremity edema ZANDER (obstructive sleep apnea) Colon cancer screening HLD (hyperlipidemia) DMII (diabetes mellitus, type 2) HTN (hypertension) Surgical History History of extraction of renal calculus History of tonsillectomy Family History Father Medical history unknown Mother Hypertension Diabetes ZANDER (obstructive sleep apnea) Stroke Brother Diabetes Social History Household Members: Spouse and Children Housing: House Do you presently have visiting nurse or other home services: Yes Alcohol intake: current Alcohol intake frequency: holidays/special occasions only Alcohol type: beer Patient Tobacco Use Status: Never used Tobacco e-Cigarette/Vaping Use: Never Used Second Hand Smoke Exposure: No Advance Directives Date on File: 08/05/22 service: No Current occupational status: employed Current occupational exposures/hazards: No Cognitive needs: No Hearing needs: No Vision needs: No Physical Exam Vital Signs: Last Vital Signs Pulse 90 07/20/24 15:33 BP 138/86 07/20/24 15:33 BMI result Body Mass Index 56.1 Results AMB Hemoglobin A1c AMB Hemoglobin A1c 10.9 % Last Edit by VÍCTOR Cadet on 07/20/24 15:4 9 Results Reviewed Results Reviewed: Laboratory Last Values Glucose (Clinic) 266 mg/dL (60-115) H 07/20/24 15:39 Hgb A1c (Clinic) 10.9 % (4.0-6.0) H 07/20/24 15:43 Assessment & Plan Assessment & Plan (1) DMII (diabetes mellitus, type 2): Code(s): E11.9 - Type 2 diabetes mellitus without complications Category: Medical Qualifiers: Diabetes mellitus local company intermodal truck driver insulin use: without local company intermodal truck driver use Diabetes mellitus complication status: with hyperglycemia Qualified Code(s): E11.65 - Type 2 diabetes mellitus with hyperglycemia Plan: Uncontrolled Increase actos to 30mg daily continue metformin Increase ozempic to 1mg daily short term follow up Must bring readings, meter Orders: Orders AMB Hemoglobin A1c 07/20/24 E11.65 - Type 2 diabetes mellitus with hyperglycemia Medications: New Ozempic (semaglutide) 1 mg (0.75 mL) subcut QWEEK 3 mL 3RF NS E11.65 - Type 2 diabetes mellitus with hyperglycemia pioglitazone 30 mg PO DAILY 90 days 90 tabs 3RF OneTouch Verio test strips (blood sugar diagnostic) Once daily 100 ea 3RF NS E11.65 - Type 2 diabetes mellitus with hyperglycemia Discontinued dulaglutide (Trulicity) Discontinued Reason: Doctor's Order 1.5 mg (0.5 mL) subcut QWEEK 4 weeks 2 mL 1RF E11.65 - Type 2 diabetes mellitus with hyperglycemia pioglitazone (Actos) Discontinued Reason: Doctor's Order 15 mg PO DAILY 90 days 90 tabs 2RF E11.65 - Type 2 diabetes mellitus with hyperglycemia semaglutide (Ozempic) Discontinued Reason: Doctor's Order 0.5 mg (0.736 mL) subcut QWEEK 4 weeks 3 mL 1RF E11.65 - Type 2 diabetes mellitus with hyperglycemia Coding Level of Care Code New Pt Level 4 (60636) Diagnoses Type 2 diabetes mellitus with hyperglycemia, without long-term current use of insulin E11.65 Diabetes mellitus [facility] insulin use: without local company intermodal truck driver use Diabetes mellitus complication status: with hyperglycemia
[2024-07-20 15:33] VITALS: BP 138/86; PULSE 90; BMI 56.1
[2024-07-20 15:45] LABS: Glucose, Whole Blood 266 mg/dL (60-115)
== END 2024-07-20 16:03 | disposition home or self-care (01) ==
PROVIDERS: PCP Physician Assistant; Visit Provider Internal Medicine
DX: E11.65 Type 2 diabetes mellitus with hyperglycemia (principal)
CPT/HCPCS: 99204

== ENCOUNTER → 2024-07-20 15:24 | Outpatient (BNVA) | payer OTHER, SELFPAY | PROVIDERS: PCP Physician Assistant; Visit Provider Internal Medicine | DX: E11.65 Type 2 diabetes mellitus with hyperglycemia (principal); Z79.84 Long term (current) use of oral hypoglycemic drugs; Z79.85 Long-term (current) use of injectable non-insulin antidiabetic drugs | CPT/HCPCS: 82947; 83036 ==

== ENCOUNTER 2024-08-24 15:53 | Outpatient (AMB) | payer OTHER, SELFPAY ==
--- NOTE | 2024-08-24 15:53 | A.OFFVIS_ITS ---
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 Says he has not been following his diet. Now committed to doing so. HbA1C 9.3% in November, 10.9% july No readings today as got one touch verio and needs instructions/help learning how to use it. We practiced today until he seemed proficient. Has been having pain in the right wrist. No injury. No warmth. Really bothersome Micro/macrovascular complications: Denies hypoglycemia Denies polyuria, polydipsia ROS see HPI PHYSICAL EXAM: GENERAL: Alert and oriented x 3. NAD EYES: EOMI. Anicteric. HENT: Moist mucous membranes. No scleral icterus. No cervical lymphadenopathy. LUNGS: Clear to auscultation bilaterally. CARDIOVASCULAR: Regular rate and rhythm. No murmur. No JVD. ABDOMEN: Soft, non-tender +bs EXTREMITIES: No edema. Non-tender. SKIN: No rashes or lesions. Warm. NEUROLOGIC: No focal neurological deficits. CN II-XII grossly intact PSYCHIATRIC: Cooperative. Appropriate mood and affect [facility] Medical History Ureteral stent displacement Lower extremity edema ZANDER (obstructive sleep apnea) Colon cancer screening HLD (hyperlipidemia) DMII (diabetes mellitus, type 2) HTN (hypertension) Surgical History History of extraction of renal calculus History of tonsillectomy Family History Father Medical history unknown Mother Hypertension Diabetes ZANDER (obstructive sleep apnea) Stroke Brother Diabetes Social History Household Members: Spouse and Children Housing: House Do you presently have visiting nurse or other home services: Yes Alcohol intake: current Alcohol intake frequency: holidays/special occasions only Alcohol type: beer Patient Tobacco Use Status: Never used Tobacco e-Cigarette/Vaping Use: Never Used Second Hand Smoke Exposure: No Advance Directives Date on File: 08/05/22 service: No Current occupational status: employed Current occupational exposures/hazards: No Cognitive needs: No Hearing needs: No Vision needs: No Physical Exam Vital Signs: Last Vital Signs Pulse 85 08/24/24 15:58 BP 130/80 08/24/24 15:58 BMI result Body Mass Index 55.0 Results Reviewed Results Reviewed: Laboratory Last Values Glucose (Clinic) 142 mg/dL (60-115) H 08/24/24 16:00 Assessment & Plan Assessment & Plan (1) DMII (diabetes mellitus, type 2): Code(s): E11.9 - Type 2 diabetes mellitus without complications Category: Medical Qualifiers: Diabetes mellitus custodial insulin use: without custodial use Diabetes mellitus complication status: with hyperglycemia Qualified Code(s): E11.65 - Type 2 diabetes mellitus with hyperglycemia Plan: Teaching performed. Discussed testing every day fasting (at least)-bringing meter and log to next visit so we can adjust meds accordingly (2) Right wrist pain: Code(s): M25.531 - Pain in right wrist Category: Medical Plan: Patient requests testing for carpal tunnel. order placed. 3 day prednisone sent. discussed this will temporarily increase gluocse Orders: Orders NE electromyogram (EMG) 08/24/24 M25.531 - Pain in right wrist Medications: New prednisone 40 mg (2 x 20 mg) PO DAILY 6 tabs 3RF Coding Level of Care Code Est Pt Level 4 (77000) Diagnoses Type 2 diabetes mellitus with hyperglycemia, without long-term current use of insulin E11.65 Diabetes mellitus custodial insulin use: without machine long goods helper use Diabetes mellitus complication status: with hyperglycemia Right wrist pain M25.531
[2024-08-24 15:58] VITALS: BP 130/80; PULSE 85; BMI 55.0
[2024-08-24 16:06] LABS: Glucose, Whole Blood 142 mg/dL (60-115)
== END 2024-08-24 16:27 | disposition home or self-care (01) ==
PROVIDERS: PCP Physician Assistant; Visit Provider Internal Medicine
DX: E11.65 Type 2 diabetes mellitus with hyperglycemia (principal); M25.531 Pain in right wrist

== ENCOUNTER → 2024-08-24 15:53 | Outpatient (BNVA) | payer OTHER, SELFPAY | PROVIDERS: PCP Physician Assistant; Visit Provider Internal Medicine | DX: E11.65 Type 2 diabetes mellitus with hyperglycemia (principal); M25.531 Pain in right wrist | CPT/HCPCS: 82947 ==

== ENCOUNTER 2025-03-20 07:21 | Emergency (ER) | payer OTHER, SELFPAY ==
--- NOTE | ~2025-03-20 | XR_ITS ---
EXAMINATION: XR WRIST, LEFT CLINICAL INFORMATION: pain COMPARISON: None available. TECHNIQUE: PA, lateral, oblique, and scaphoid views of the left wrist. FINDINGS: The bones and soft tissues are normal. No fracture. Alignment is anatomic with normal joint spaces. No erosions or abnormal soft tissue calcifications. XR/XR wrist LT min 3V IMPRESSION: No acute bony abnormalities left breast. Electronically signed by: Kostas Mejia MD 03/20/2025 08:49 AM EDT
--- NOTE | ~2025-03-20 | XR_ITS ---
EXAMINATION: XR HAND, LEFT CLINICAL INFORMATION: pain COMPARISON: None available. TECHNIQUE: PA, lateral, and oblique views of the left hand. FINDINGS: The bones and soft tissues are normal. No fracture. Alignment is anatomic. Joint spaces are maintained. No erosions or soft tissue calcifications. XR/XR hand LT min 3V IMPRESSION: No acute bony abnormalities left hand. Electronically signed by: Kostas Mejia MD 03/20/2025 08:50 AM EDT RP
[2025-03-20 07:29] VITALS: BP 151/76; PULSE 82; RESP 18; TEMP 36.8; O2SAT 97; BMI 58.9
[2025-03-20] MEDS: oxyCODONE HCl Immed Release 5 MG TABLET PO (08:18)
[2025-03-20] MEDS: Acetaminophen 325 MG TABLET 975 MG PO (08:18)
--- NOTE | 2025-03-20 08:22 | PC.NURSE ---
Pt to Xray at this time.
--- NOTE | 2025-03-20 08:36 | ED.EXTPRO ---
HPI - Extremity Problem General Chief complaint: Extremity Injury, Upper Stated complaint: Pain L hand no injury Time Seen by Provider: 03/20/25 07:59 Source: patient Mode of arrival: ambulatory Limitations: no limitations History of Present Illness HPI Narrative: this is a 55 years old the patient presented to the emergency department complaining of left and wrist pain atraumatic since Wednesday. He has a history of gout, he takes Eliquis, he has a history of diabetes as well. There is no fever no vomiting MD Complaint: extremity pain Onset (ago): day(s) (3) Pain Consistency: constant Location: left and other ( wrist and hand) Quality: burning Radiation: none Relieving factors: nothing Exacerbating factors: nothing Associated symptoms: denies other symptoms Related Data Previous Rx's ?Medication ?Instructions ?Recorded comp.stocking,thigh,long,x-lrg #2 ea 09/18/20 OneTouch Verio test strips (blood #100 ea 07/20/24 sugar diagnostic) apixaban 5 mg tablet (Eliquis) 5 mg PO BID #180 tabs 07/20/24 pioglitazone 30 mg tablet 30 mg PO DAILY 90 days #90 tabs 07/20/24 amlodipine 10 mg tablet 10 mg PO DAILY 90 days #90 tabs 09/16/24 metformin 1,000 mg tablet 1,000 mg PO BID 90 days #180 tabs 09/16/24 metoprolol tartrate 100 mg tablet 100 mg PO BID 90 days #180 tabs 09/16/24 simvastatin 20 mg tablet 20 mg PO BEDTIME 90 days #90 tabs 09/16/24 colchicine 0.6 mg tablet (Colcrys) 0.6 mg PO DAILY #14 tabs 10/08/24 lisinopril 10 mg tablet 10 mg PO DAILY 90 days #90 tabs 10/09/24 prednisone 20 mg tablet 40 mg (2 x 20 mg) PO DAILY #6 tabs 10/09/24 FreeStyle Lancets 28 gauge #100 ea 10/29/24 (lancets) FreeStyle Test (blood sugar #100 ea 10/29/24 diagnostic) Ozempic 1 mg/dose (4 mg/3 mL) 1 mg (0.75 mL) subcut QWEEK #9 mL 12/21/24 subcutaneous pen injector (semaglutide) Mounjaro 5 mg/0.5 mL subcutaneous 5 mg (0.5 mL) subcut QWEEK #6 mL 01/17/25 pen injector (tirzepatide) colchicine 0.6 mg capsule 0.6 mg PO BID #10 caps 03/20/25 oxycodone 5 mg tablet 5 mg PO Q6H PRN pain #15 tabs 03/20/25 Allergies Allergy/AdvReac Type Severity Reaction Status Date / Time empagliflozin [Jardiance] AdvReac Unknown penile Verified 03/20/25 07:31 swelling Review of Systems Constitutional: Constitutional: Reports no additional constitutional complaints ENT: Reports system reviewed and no additional complaints, except as documented Respiratory: Respiratory: Reports no additional respiratory complaints Musculoskeletal: Musculoskeletal: Reports as per [facility] Past Medical History Attestation statement: The following information was validated with the patient. Medical History Ureteral stent displacement Lower extremity edema ZANDER (obstructive sleep apnea) Colon cancer screening HLD (hyperlipidemia) DMII (diabetes mellitus, type 2) HTN (hypertension) Surgical History History of extraction of renal calculus History of tonsillectomy Family History Family History Father Medical history unknown Mother Hypertension Diabetes ZANDER (obstructive sleep apnea) Stroke Brother Diabetes Social History Social History Household Members: Spouse and Children Housing: House Do you presently have visiting nurse or other home services: Yes Alcohol intake: current Alcohol intake frequency: holidays/special occasions only Alcohol type: beer Patient Tobacco Use Status: Never used Tobacco e-Cigarette/Vaping Use: Never Used Second Hand Smoke Exposure: No Advance Directives: Yes Advance Directives on File: Yes Advance Directives Date on File: 08/05/22 service: No Current occupational status: employed Current occupational exposures/hazards: No Cognitive needs: No Hearing needs: No Vision needs: No Physical Exam Vital Signs: Vital Signs: Last Vital Signs Temp 98.2 F 03/20/25 07:29 Pulse 82 03/20/25 07:29 Resp 18 03/20/25 07:29 BP 151/76 H 03/20/25 07:29 Pulse Ox 97 03/20/25 07:29 O2 Del Method Room Air 03/20/25 07:29 BMI result Body Mass Index 58.9 no acute distress looks well Const: General: cooperative Nutritional Appearance: well nourished Orientation/consciousness: patient oriented x3 HEENT: General nose exam: Normal external nose present Mouth: Normal oral and palatal mucosa present Neck: Neck: Yes normal visual inspection Chest: Chest palpation & inspection: normal inspection of the chest Resp: Effort & Inspection: normal respiratory effort Cardio: Jugular venous distension: no JVD Rate: regular rate Rhythm: regular rhythm GI: Inspection: Yes normal to inspection Palpation (GI): Soft to palpation, not firm and nontender Percussion: Yes normal to percussion Skin: General skin exam: no rashes or lesions noted, elasticity normal and turgor normal Lesions: no lesions Rashes: no rashes Trauma: no lacerations or abrasions Neuro: General: patient oriented x3 Extrem: Other: examination of the left hand showed tenderness swelling also left wrist shows tenderness decreased range of motion. Course Reevaluation(s) Reevaluation #1: doing better, x-ray negative, white count normal the etiology of the pain is unclear gout is a possibility, he has a history of gout, it is reasonable to discharge home however we can not use anti-inflammatory medication because he is on Eliquis and also prednisone is no advisible because he has uncontrolled diabetes Time: 10:24 Medications Administered Discontinued Medications Generic Name Dose Route Start Last Admin Trade Name Pipoq PRN Reason Stop Dose Admin Acetaminophen 975 mg 03/20/25 08:03 03/20/25 08:18 Acetaminophen 325 Mg Tablet PO 03/20/25 08:04 975 mg ONCE ONE Administration Colchicine 0.6 mg 03/20/25 08:02 03/20/25 09:24 Colchicine 0.6 Mg Tablet PO 03/20/25 08:03 0.6 mg ONCE ONE Administration Oxycodone HCl 5 mg 03/20/25 08:03 03/20/25 08:18 Oxycodone Hcl Immed Release 5 Mg Tablet PO 03/20/25 08:04 5 mg ONCE ONE Administration Medical Decision Making Medical Decision Making MDM Narrative: patient presented with left hand pain atraumatic we will obtain x-ray and labs. He does have history of gout so most likely this is gout flare in the absence of trauma. Differential Diagnosis Differential Diagnoses: The differential diagnosis associated with the presentation includes Acute gout/ fracture wrist /tendinitis Admission/Observation Consideration of admission/observation: Escalation of care including admission/observation considered Lab Data MDM Lab Attestation statement: I reviewed the patient's lab results. 03/20/25 08:56 03/20/25 08:56 Labs: Lab Results 03/20/25 Range/Units 08:56 WBC 10.0 (4.8-10.8) X10*3/uL RBC 4.59 L (4.60-5.80) X10*6/uL Hgb 13.0 L (14.0-18.0) g/dl Hct 39.8 L (42.0-52.0) % MCV 86.7 (80.0-98.0) fL MCH 28.3 (27.0-33.0) pg MCHC 32.7 (31.0-36.0) g/dl RDW 13.9 (11.0-16.0) % Plt Count 174 D (160-400) X10*3/uL MPV 10.4 (9.4-12.4) fL Immature Gran % (Auto) 0.7 H (0.0-0.4) % Neut % (Auto) 77.7 H (45-73) % Lymph % (Auto) 14.4 L (20-40) % [place] % (Auto) 6.0 (2-11) % Eos % (Auto) 0.9 (0-4) % Baso % (Auto) 0.3 (0-2) % Lymph # (Auto) 1.4 (1.2-4.9) X10*3/uL [place] # (Auto) 0.6 (0.1-1.2) X10*3/uL Eos # (Auto) 0.1 (0.0-0.4) X10*3/uL Baso # (Auto) 0.0 (0.0-0.2) X10*3/uL Abs Immat Gran (auto) 0.07 H (0.00-0.03) X10*3/uL Absolute Neuts (auto) 7.8 (2.0-8.3) x10*3/uL Absolute Nucleated RBC 0.000 (0.0-0.012) X10*3/uL Nucleated RBC % (auto) 0.0 (0.0-0.2) /100WBC Smear Tech's Comments VERIFIED ESR 22 H (0-15) MM/HR Sodium 138 (135-145) mmol/L Potassium 4.8 (3.3-5.1) mmol/L Chloride 106 (96-108) mmol/L Carbon Dioxide 22 (22-29) mmol/L Anion Gap 15 (12-20) BUN 18 H (9-16) mg/dL Creatinine 0.97 (0.5-1.4) mg/dL Estim Creat Clear Calc 118.9 Estimated GFR > 60 Random Glucose 284 H (60-115) mg/dL Calcium 9.1 (8.4-10.2) mg/dL Total Bilirubin 0.7 (0.0-1.0) mg/dL AST 19 (5-37) U/L ALT 14 (0-40) U/L Alkaline Phosphatase 133 H (39-117) U/L Total Protein 6.9 (6.5-8.0) g/dL Albumin 4.0 (3.5-5.0) g/dL Independent Interpretation I performed an independent interpretation of an: Plain X-Ray Interpretation: no fracture Radiology Impression Discussion of test interpretation with radiology: I have reviewed the radiologist's reading. Radiologist Impression: no acute fracture or dislocation External Record Review External record reviewed: Inpatient record Prescription Management I considered prescription management with: Pain Medication Chronic Conditions Patient?s care impacted by: Diabetes Discharge Plan Discharge Clinical Impression: Acute wrist pain Qualifiers: Laterality: left Qualified Code(s): M25.532 - Pain in left wrist Gout attack Qualifiers: Gout site: wrist Gout etiology: unspecified cause Laterality: left Qualified Code(s): M10.9 - Gout, unspecified Patient Disposition: Home, Self-Care Instructions: Gout (ED), Arthralgia (ED) Additional Instructions: please follow-up with your primary care physician call today and make an appointment we sent a prescription for your for pain medicine and colchicine that we use for gout Prescriptions: New colchicine 0.6 mg capsule 0.6 mg PO BID Qty: 10 0RF oxycodone 5 mg tablet 5 mg PO Q6H PRN (Reason: pain) Qty: 15 0RF Rx Instructions: partial filing upon pt request; Partial Fill upon patient request. No Action metoprolol tartrate 100 mg tablet 100 mg PO BID 90 Days Qty: 180 1RF metformin 1,000 mg tablet 1,000 mg PO BID 90 Days Qty: 180 1RF amlodipine 10 mg tablet 10 mg PO DAILY 90 Days Qty: 90 1RF simvastatin 20 mg tablet 20 mg PO BEDTIME 90 Days Qty: 90 1RF colchicine [Colcrys] 0.6 mg tablet 0.6 mg PO DAILY Qty: 14 0RF lisinopril 10 mg tablet 10 mg PO DAILY 90 Days Qty: 90 1RF prednisone 20 mg tablet 40 mg PO DAILY Qty: 6 3RF (DME) lancets [FreeStyle Lancets] 28 gauge misc See Rx Instructions .ROUTE .MEDSUPPLY Qty: 100 3RF Rx Instructions: once daily (DME) FreeStyle Test Strip See Rx Instructions .ROUTE .MEDSUPPLY Qty: 100 3RF Rx Instructions: once daily Ozempic 1 mg/dose (4 mg/3 mL) pen injector 1 mg subcut QWEEK Qty: 9 3RF Eliquis 5 mg Tablet 5 mg PO BID Qty: 180 2RF (DME) comp.stocking,thigh,long,x-lrg Misc See Rx Instructions .ROUTE .MEDSUPPLY Qty: 2 0RF Rx Instructions: As directed Mounjaro 5 mg/0.5 mL pen injector 5 mg subcut QWEEK Qty: 6 3RF pioglitazone 30 mg tablet 30 mg PO DAILY 90 Days Qty: 90 3RF (DME) OneTouch Verio test strips Strip See Rx Instructions .Route Qty: 100 3RF Rx Instructions: Once daily Referrals: Dhruv Frankel PA-C [Primary Care Provider] - 2 days Print Language: Estonian
[2025-03-20 09:07] LABS: Basophils Percent Auto 0.3 % (0-2); Eosinophils Absolute Auto 0.1 X10*3/uL (0.0-0.4); Eosinophils Percent Auto 0.9 % (0-4); Hematocrit 39.8 % (42.0-52.0); Imm Gran Abs Auto 0.07 X10*3/uL (0.00-0.03); Imm Gran Pct Auto 0.7 % (0.0-0.4); Lymphocytes Absolute Auto 1.4 X10*3/uL (1.2-4.9); Lymphocytes Percent Auto 14.4 % (20-40); MANUAL DIFF FLAG SCAN; Mean Corpuscular HGB Conc 32.7 g/dl (31.0-36.0); Mean Corpuscular Hemoglobin 28.3 pg (27.0-33.0); Mean Corpuscular Volume 86.7 fL (80.0-98.0); Monocytes Absolute Auto 0.6 X10*3/uL (0.1-1.2); Neutrophils Absolute Auto 7.8 x10*3/uL (2.0-8.3); Neutrophils Percent Auto 77.7 % (45-73); PLT CLUMP 1; Red Blood Count 4.59 X10*6/uL (4.60-5.80); Red Cell Distribution Width 13.9 % (11.0-16.0); SCAN SMEAR FLAG 1
[2025-03-20] MEDS: Colchicine 0.6 MG TABLET PO (09:24)
[2025-03-20 09:25] LABS: Alanine Aminotransferase 14 U/L (0-40); Alkaline Phosphatase 133 U/L (39-117); Anion Gap 15 (12-20); Aspartate Amino Transferase 19 U/L (5-37); Bilirubin Total 0.7 mg/dL (0.0-1.0); Blood Urea Nitrogen 18 mg/dL (9-16); Calcium 9.1 mg/dL (8.4-10.2); Carbon Dioxide 22 mmol/L (22-29); Chloride 106 mmol/L (96-108); Creatinine Clr Calc Pharmacy 118.9; Estimated Glomerular Filt Rate > 60; Glucose Random 284 mg/dL (60-115); Mean Platelet Volume 10.4 fL (9.4-12.4); Platelet Count 174 X10*3/uL (160-400); Potassium 4.8 mmol/L (3.3-5.1); Sodium 138 mmol/L (135-145); Total Protein 6.9 g/dL (6.5-8.0)
[2025-03-20 09:26] LABS: SLIDE REVIEW VERIFIED
[2025-03-20 09:46] LABS: Erythrocyte Sedimentation Rate 22 MM/HR (0-15)
[2025-03-20 10:35] VITALS: BP 151/76; PULSE 82; RESP 18; TEMP 36.8; O2SAT 97
[2025-03-20 19:06] LABS: Uric Acid 8.9 mg/dL (3.4-7.0)
== END 2025-03-20 10:36 | disposition home or self-care (01) ==
PROVIDERS: Emergency Provider Emergency Medicine; PCP Physician Assistant
DX: M10.9 Gout, unspecified (principal); M25.532 Pain in left wrist; E11.9 Type 2 diabetes mellitus without complications; I10 Essential (primary) hypertension; E78.5 Hyperlipidemia, unspecified; E66.9 Obesity, unspecified; Z68.43 Body mass index [BMI] 50.0-59.9, adult; Z86.718 Personal history of other venous thrombosis and embolism; Z79.01 Long term (current) use of anticoagulants; Z79.84 Long term (current) use of oral hypoglycemic drugs; Z79.02 Long term (current) use of antithrombotics/antiplatelets; Z79.899 Other long term (current) drug therapy
CPT/HCPCS: 36415; 73110; 73130; 80053; 84550; 85025; 85652; 99283

== ENCOUNTER → 2025-03-20 07:59 | Outpatient (BNV) | payer OTHER, SELFPAY | PROVIDERS: Emergency Provider Emergency Medicine; PCP Physician Assistant; Visit Provider Radiology Diagnostic Radiology | DX: M25.532 Pain in left wrist (principal); M79.642 Pain in left hand | CPT/HCPCS: 73110; 73130 ==